=== PATIENT | male | born 1950 | race Caucasian/White ===

== ENCOUNTER → 2019-08-24 12:18 | Outpatient (CLI) | payer MEDICARE, SELFPAY ==
[2019-08-26 10:19] LABS: PSA, Free 1.62 ng/mL; Prostate Specific Ag 5.7 ng/mL (0.0-4.0)
== END ==
PROVIDERS: Visit Provider Urology
DX: R97.20 Elevated prostate specific antigen [PSA] (principal)
CPT/HCPCS: 36415; 84153; 84154

== ENCOUNTER → 2019-09-28 10:52 | Outpatient (CLI) | payer MEDICARE, SELFPAY ==
--- NOTE | 2019-09-28 | CA_ITS ---
APPROVED REPORT Exam: Pharmacologic Technologist: Mimi Werner, Ht: 5 ft 11 in Wt: 220 lbs BSA: 2.20 m2 Rhythm: NSR,NSSTTW ABNORMALITIES Medical History Medical History: HTN, Hyperlipidemia Medications: Amlodipine,,,,, Lisinopril,,,,, Asa,,,,, Atorvastatin,,,,, Carvedilol,,,,, CloPIdogrel,,,,, Cardiac Risk Factors: HTN, Hyperlipidemia, FHX of CAD Stress Test Details Test: LEXISCAN HR Resting HR: 58 bpm Max Heart Rate (APMHR): 153 bpm Max HR Achieved: 87 bpm Target HR (85% APMHR): 130 bpm % of APMHR: 56 Recovery HR: 66 bpm BP Resting BP: 147.0/65.0 mmHg Max BP: 147.0/65.0 mmHg Recovery BP: 110.0/62.0 mmHg ECG Resting ECG: NSR,NSSTTW ABNORMALITIES Clinical Reason for Termination: Completed Protocol Exercise duration: 04:01 min Highest Stage Achieved: Exercise capacity: 1.0 METs Stress ECG Conclusion LEXISCAN INFUSION COMPLETED. PATIENT HAD NO SYMPTOMS OR ARRHYTHMIAS/ECTOPY. <1.5MM ST SEGMENT CHANGES. NON-DIAGNOSTIC Test Summary REST . . . . . . . Sitting REST . . . . . . . Sitting REST 02:45 . . 58 . 147/ 65 . . Stage 1 . . . . . . . Cardiolite injected Stage 1 01:00 . . 81 . . . . Stage 2 01:00 . . 72 . 112/ 50 . . Stage 3 01:00 . . 53 . . . . Stage 4 01:00 . . 59 . 109/ 47 . . Stage 4 01:01 . . 59 . 109/ 47 . Stop exercise at 04:01 RECOVERY 01:00 . . 66 . . . . RECOVERY 02:00 . . 64 . 110/ 62 . . RECOVERY 03:00 . . 64 . 125/ 63 . . RECOVERY 04:00 . . 65 . 135/ 66 . . RECOVERY 04:15 . . 65 . 135/ 66 . . Electronically signed by : Jose F Blanton, 09/29/2019 18:35:26
--- NOTE | 2019-09-28 10:53 | CA_ITS ---
APPROVED REPORT EXAM: Comprehensive 2D, Doppler, and color-flow Echocardiogram Plodder Operator: Florencia García RVT Ht: 6 ft 1 in Wt: 226lbs BSA: 2.27 BP: 168/74 mmHg Indications: Shortness of Breath, Dyspnea, CAD, Hyperlipidemia, Hypertension,DAVID, stents, hx [place],Pre-op 2D Dimensions LVOT 2.27 cm (M/F) 1.5-2.5 M-Mode Dimensions RVDd 3.32 cm (0.9-2.6) LVDd 6.50 cm (3.5-5.7) LVDs 4.44 cm (3.5-5.7) IVSd 1.79 cm (0.6-1.1) PWd 0.58 cm (0.6-1.1) EF (Teich) 58.50% FS 31.70% EDV (Teich) 216.00 mL ESV (Teich) 89.60 mL LV Diastology E/A Ratio 1.04 Mitral Valve MV A Velocity 63.00 (40-130 cm/s) Left Ventricle Left atrium is mildly enlarged, left ventricle is normal size, mild concentric left ventricular hypertrophy, visually estimated ejection fraction 50%, there is moderate hypokinesis involving the inferior basal wall, grade 2 diastolic dysfunction seen with tissue Doppler evidence of raise left atrial pressure. Right Ventricle Right atrium and right ventricular normal size and contractility. Aortic Valve Aortic valve is thickened and calcified, leaflet continue to display mobility. Mitral Valve Mitral valve is grossly normal, there is mild mitral regurgitation. Tricuspid Valve Tricuspid valve is grossly normal, there is mild tricuspid regurgitation. Pulmonic Valve Pulmonic valve is poorly visualized. Great Vessels Aortic root is normal size. Pericardium No significant pericardial effusion noted. Conclusion 1. Mildly enlarged left atrium, normal left ventricular size, mild concentric left ventricular hypertrophy, visually estimated ejection fraction 50% with segmental wall motion abnormality described above, grade 2 diastolic dysfunction seen with tissue Doppler evidence of raise left atrial pressure. 2. Mild mitral and tricuspid regurgitation. 3. No significant pericardial effusion noted. Electronically signed by : Jose F Blanton, 09/29/2019 19:31:37
--- NOTE | 2019-09-28 11:46 | NM_ITS ---
APPROVED REPORT Exam: Nuclear Stress Test Indication: CAD, 8 STINTS, H/O MA X 3, HTN, HYPERLIPIDEMIA, FM HX., SOB Patient Location: Outpatient Stress Tech: Usha Pridenkson [place] Tech:Maribeth Rockwell ALANDeandre RT(R)(N) Ht: 5 ft 11 in Wt: 220 lbs HR: 54 bpm BP: 141/65 mmHg BSA: 2.20 m2 BMI: 30.6 History: CAD, 8 STINTS, H/O MA X 3, HTN, HYPERLIPIDEMIA, FM HX., SOB Procedure: Patient received a 0.4 mg of intravenous Lexiscan, resting heart rate 54 bpm, resting blood pressure 141/65 mmHg, with Lexiscan maximum heart rate achived was 60 bpm which is Less than 85 % of the maximum predicted heart rate and blood pressure was 109/52 mmHg. With Lexiscan, patient denied any complaint of chest pain. Electrocardiogram Resting electrocardiogram showed sinus rhythm, with Lexiscan there is less than 1.[address] segment depression noted from the baseline EKG. The EKG portion of the Lexiscan Myoview is nondiagnostic. Cardiac Stress and Resting SPECT Images: Cardiac Stress and Resting SPECT images were obtained using technetium 99m Myoview 32.2 mCi stress and 10.98 mCi at rest. Gated SPECT with analysis of segmental wall motion and calculation of the ejection fraction also done. Cardiac stress and resting SPECT images show partial reversible defect involving the inferior, inferolateral and posterolateral wall consistent with area of mixed ischemia and scar, computer derived ejection fraction is 59% with moderate posterolateral and inferior lateral wall hypokinesis. Right ventricle is normal size and contractility. Conclusion: 1. The EKG portion of the Lexiscan is nondiagnostic. 2. Scintigraphic evidence of mixed ischemia and scar involving the inferior, inferolateral and posterolateral wall, computer derived ejection fraction 59% with segmental wall motion abnormality described above, right ventricle is normal size and contractility. 3. Abnormal Lexiscan Myoview study. Electronically signed by : Jose F Blanton, 09/29/2019 18:38:37
--- NOTE | 2019-09-28 14:46 | HMH.ITSHM ---
Current Home Medications as stated by this patient Alok De Jesus or patient representative. []LISINOPRIL AMLODIPINE ASPIRIN CLOPIDOGREL ATORVASTATIN CARVEDILOL
== END ==
PROVIDERS: PCP Nurse Practitioner Family; Visit Provider Internal Medicine Cardiovascular Disease
DX: E78.5 Hyperlipidemia, unspecified (principal); I10 Essential (primary) hypertension; I25.10 Atherosclerotic heart disease of native coronary artery without angina pectoris; I25.2 Old myocardial infarction; R06.00 Dyspnea, unspecified; Z01.810 Encounter for preprocedural cardiovascular examination; Z95.5 Presence of coronary angioplasty implant and graft
CPT/HCPCS: 78452; 93017; 93306; A9502; J2785

== ENCOUNTER → 2019-10-05 09:55 | Outpatient (CLI) | payer MEDICARE, SELFPAY ==
[2019-10-05 10:41] LABS: Anion Gap 12.4 mEq/L (5-15); Blood Urea Nitrogen 12 mg/dL (7-18); Calcium 9.2 mg/dL (8.5-10.1); Carbon Dioxide 29 mmol/L (21.0-32.0); Chloride 107 mmol/L (98-107); Creatinine,Serum 0.99 mg/dL (0.70-1.30); Estimated Glomerular Filt Rate 75 ml/min (>60); GFR (African American) 91 ML/MIN (>60); Glucose 100 mg/dL (74-106); Potassium 4.4 mmoL/L (3.5-5.1); Sodium 144 mmol/L (136-145)
== END ==
PROVIDERS: Visit Provider Internal Medicine Cardiovascular Disease
DX: E78.5 Hyperlipidemia, unspecified (principal); I10 Essential (primary) hypertension; I25.10 Atherosclerotic heart disease of native coronary artery without angina pectoris; I25.2 Old myocardial infarction; R06.00 Dyspnea, unspecified; Z01.810 Encounter for preprocedural cardiovascular examination; Z95.5 Presence of coronary angioplasty implant and graft
CPT/HCPCS: 36415; 80048; 83880

== ENCOUNTER → 2020-02-06 11:24 | Outpatient (CLI) | payer MEDICARE, SELFPAY ==
[2020-02-06 12:08] LABS: Alanine Aminotransferase 23 U/L (12-78); Albumin Level 4.3 g/dl (3.5-5.0); Alkaline Phosphatase 96 U/L (38-126); Aspartate Amino Transferase 29 U/L (17-59); Bilirubin,Indirect 0.9 mg/dL (0.0-0.9); Bilirubin,Total 0.9 mg/dl (0.2-1.3); Bilirubin,Unconjugated 0.8 mg/dL (0.0-1.1); Chol/HDL Ratio 3.6 (1-3.5); Cholesterol 115 mg/dl (140-200); HDL Cholesterol 32 mg/dl (40-60); Total Protein,Serum 7.3 g/dl (6.3-8.2); Triglycerides 106 mg/dl (30-150); VLDL Cholesterol 21 mg/dL (0-40)
[2020-02-06 12:19] LABS: Direct LDL Cholesterol 77.44 mg/dL (100-129)
== END ==
PROVIDERS: Visit Provider Urology
DX: E78.5 Hyperlipidemia, unspecified (principal); I10 Essential (primary) hypertension; I25.10 Atherosclerotic heart disease of native coronary artery without angina pectoris; I25.2 Old myocardial infarction; R06.00 Dyspnea, unspecified; Z95.5 Presence of coronary angioplasty implant and graft
CPT/HCPCS: 36415; 80061; 80076

== ENCOUNTER → 2020-02-23 13:59 | Outpatient (CLI) | payer MEDICARE, SELFPAY ==
[2020-02-25 08:42] LABS: PSA, Free 1.59 ng/mL; Prostate Specific Ag 5.8 ng/mL (0.0-4.0)
== END ==
PROVIDERS: Visit Provider Urology
DX: R97.20 Elevated prostate specific antigen [PSA] (principal)
CPT/HCPCS: 36415; 84153; 84154

== ENCOUNTER → 2020-03-29 08:06 | Outpatient (CLI) | payer MEDICARE, SELFPAY ==
[2020-03-30 13:42] LABS: Prostate Specific Ag 11.8 ng/mL (0.0-4.0)
== END ==
PROVIDERS: Visit Provider Urology
DX: R97.20 Elevated prostate specific antigen [PSA] (principal)
CPT/HCPCS: 36415; 84153; 84154

== ENCOUNTER 2020-04-01 12:01 | Observation (INO) | payer MEDICARE, SELFPAY ==
[2020-03-28 09:43] VITALS: BMI 31.4
[2020-04-01] VITALS (23 sets, daily range): BP systolic 92–143; BP diastolic 47–73; PULSE 50–65; RESP 12–20; TEMP 36.2–36.7; O2SAT 88–95; BMI 31.4
[2020-04-01 07:54] LABS: Basophils % 0.6 % (0.1-2.0); Eosinophils # 0.2 K/mm3 (0.0-0.4); Eosinophils % 3.3 % (0.1-12.0); Hematocrit 45.3 % (42.0-52.0); Hemoglobin 15.7 g/dL (14.1-18.0); Lymphocytes % 19.6 % (10-50); Mean Corpuscular HGB Conc 34.7 g/dL (31.8-35.4); Mean Corpuscular Hemoglobin 29.6 pg (27.0-31.2); Mean Corpuscular Volume 85.2 fl (80-94); Mean Platelet Volume 7.5 fl (7.4-10.4); Monocytes # 0.4 K/mm3 (0.1-1.0); Neutrophils # 3.6 K/mm3 (1.8-7.8); Neutrophils % 69.5 % (37.0-80.0); Platelet Count 253 K/mm3 (142-424); Red Blood Count 5.32 M/mm3 (4.60-6.20); Red Cell Distribution Width 14.1 % (11.5-17.5); White Blood Count 5.1 K/mm3 (4.8-10.8)
[2020-04-01 08:00] LABS: Blood Urea Nitrogen 11 mg/dl (9-20); Calcium 9.1 mg/dl (8.4-10.2); Creatinine Clearance Estimated 103 mL/min (50-200); Estimated Glomerular Filt Rate 112 ml/min (>60); GFR (African American) 136 ML/MIN (>60); Glucose 150 mg/dl (74-100)
[2020-04-01 08:34] LABS: Anion Gap 13.9 mEq/L (5-15); Sodium 140 mmol/L (136-145)
[2020-04-01 08:35] LABS: Carbon Dioxide 26 mmol/L (22.0-30.0); Chloride 104 mmol/L (98-107); Potassium 3.9 mmoL/L (3.5-5.1)
--- NOTE | 2020-04-01 08:42 | HMH.ANESCL ---
[facility] Anesthesia Checklist - Structural Data Admitted From: Home Planned Operative Procedure/s: turp Consent for Planned Operative Procedure(s) Verified: Yes - Additional verifications Anesthesia Reactions: No Hx Blood Transfusions: No Blood Transfusion Reaction: No - Airway Assessment C-Spine Mobility Assessed: Yes TMJ Mobility Assessed: Yes Dentition: Poor Dentition - Neurological Assessment Level of Consciousness: Awake, Alert, Appropriate - Anesthesia Plan Anesthesia Risk discussed: Yes Anesthesia Plan: Verified ASA Class: III Anesthesia Type: General [facility] History I have reviewed the patient's past medical history: Yes Medical History: Reports:: Carotid Stenosis, Coronary Artery Disease, Cerebrovascular Accident, Hyperlipidemia, Hypertension, Myocardial Infarction Denies:: Cancer, Diabetes Mellitus Type 1, Diabetes Mellitus Type 2, Internal Pacemaker, MRSA, Seizures *Have you ever received a pneumonia vaccine?: No *Have you received a flu vaccine this season?: No Other Medical History: Denies: Blood Transfusion Reaction Anesthesia experience/problems:: none Other Surgeries: Yes: No Previous Surgery, Cardiac Catheterization, Cardiac Surgery, Colonoscopy, Coronary Stent, Other. No: Pacemaker Amputation: No Fractures: Yes (wrist) - *Social History Last grade of school completed: 9th or 10th Smoking Status: Former smoker #Yrs smoked (if former smoker): 20 Alcohol Intake: never Alcohol Intake Frequency:: other Substance Use Type: denies use *Occupational Status:: retired Housing: apartment Household Members: none *Travel in the last 8 weeks: None Family Hx:: Coronary Artery Disease
[2020-04-01 08:48] LABS: Coronavirus 19 IgG Antibody Negative (Negative); Coronavirus 19 IgM Antibody Negative (Negative)
--- NOTE | 2020-04-01 11:02 | HMH.ANESI ---
[facility] Anesthesia Record Part I Intake, IV Amount: 1,500 Estimated blood loss (mL): 0 Urine output (mL): 0 Blood Pressure: 92/47 SaO2: 90 Pulse Rate: 60 Respiratory Rate: 12 Temperature: 97.4 F Patient is:: Drowsy, Stable Stable to PACU at:: 10:55
--- NOTE | 2020-04-01 12:03 | HMH.PHAVTE ---
[facility] Pharmacy VTE Monitoring - Patient Demographics Admission date: 04/01/20 Report Date: 04/01/20 Time: 12:03 Allergies/Adverse Reactions: Patient Allergies No Known Allergies Allergy (Verified 04/01/20 07:58) Height: 1.8 m Weight: 102.058 kg - VTE Risk Labs: VTE Related Lab Results Hgb 15.7 g/dL (14.1-18.0) 04/01/20 07:45 Hct 45.3 % (42.0-52.0) 04/01/20 07:45 Plt Count 253 K/mm3 (142-424) 04/01/20 07:45 BUN 11 mg/dl (9-20) 04/01/20 07:45 Creatinine 0.70 mg/dl (0.66-1.25) 04/01/20 07:45 Estimated Creat Clear 103 mL/min (50-200) 04/01/20 07:45 - Prophylaxis VTE Prophylaxis Ordered?: Yes Types of VTE Prophylaxis: IPCS Thigh High Location of Applied Device: Bilateral Lower Extremeties - VTE Diagnosis Confirmed Treatment or plan recommended: Continue Current Treatment
--- NOTE | 2020-04-01 14:01 | P.OP_ITS ---
Date of procedure: 04/01/20 Pre-op Diagnosis:: BPH with obstruction Post-op Diagnosis:: BPH with obstruction Procedure performed:: TURP Surgeon:: Loy Doran MD [employer] DRIVER:: Felice Barajas Anesthesia: GETA Estimated blood loss (mL): 10 Clinical Note:: 69-year-old white male with prostate enlargement and lower urinary tract symptoms presents for TURP today. Operative findings:: Trilobar hyperplasia present. Bladder showed some mild trabeculation. Ureteral orifices were a bit obscured by the median lobe but were visualized. Operative note:: Patient taken to the operating room after informed consent was obtained. He was placed on the operating table in the supine position and general anesthesia administered. Preoperative antibiotics and sequential compression devices placed after analgesia. He was placed into the dorsal lithotomy position and prepped and draped in the standard surgical fashion. 26 Guatemalan resectoscope sheath with obturator passed into the urethra and into the bladder without difficulty. The obturator removed and our resectoscope with 30 degree lens was passed through the sheath. The bladder examined in a systematic fashion. No mucosal abnormalities were noted. There was some mild to moderate trabeculation throughout the base of the bladder. The ureteral orifices were obscured by the median lobe but we were able to visualize them by pulling back on the median lobe. Resection began at the bladder neck in a circumferential fashion. We then resected the floor of the prostatic urethra back to the verumontanum. The left lobe of the prostate was then resected in a counterclockwise fashion back to the verumontanum. The right lobe of the prostate was resected in a clockwise fashion back to the verumontanum. Apical tissue was resected as stage III. All the prostatic chips were evacuated and sent off for specimen. Hemostasis was achieved and a 24 Guatemalan three-way catheter passed with the aid of a catheter guide. 30 cc placed into the balloon and continuous bladder irrigation instituted. The urine was pink in color. Patient tolerated procedure well and transported to the recovery in stable condition. Condition: stable Disposition: PACU Specimens:: Prostatic chips Complications:: None
--- NOTE | 2020-04-01 14:50 | SUR.PHASEI ---
Patient into PACU sedate, with LMA inserted. Multiple attempts made to rouse patient, unsuccessful. LMA removed at 1118 by Mila Sidhu RN.
--- NOTE | 2020-04-01 14:53 | SUR.PHASEI ---
Informed by STREET LIGHT WIRER, that patient has COPD, sleeps with Bi-PAP nightly. Patient's O2 saturation is not expected to get any higher than 93% on O2. Patient has been between 88-90% on 3L, sitting up at 90 degrees.
--- NOTE | 2020-04-01 15:05 | HMH.PHAINT ---
MEDICATION RECONCILIATION COMPLETED ON PATIENT USING EXTERNAL FILL HISTORY FROM PHARMACY AND PATIENT'S OWN RX BOTTLES. -LISE GAMBLED
--- NOTE | 2020-04-01 15:56 | P.PN_ITS ---
[facility] Anesthesia Record Part II Discharge Time: 11:55 Destination: Medical Surgical Department PACU nurse assessment reviewed?: Yes Patient Condition:: Good Anesthesia Complications:: None Swallowing reflex intact?: Yes Cyanosis?: No Blood Pressure: 120/68 Pulse Rate: 54 Temperature: 97.2 F Mental Status: Alert & Oriented Pain level:: 0 Nausea and/or vomitting:: None Intake, IV Amount: 0
--- NOTE | 2020-04-01 17:24 | PC.NURSE ---
PT IS RESTING IN BED. NO COMPLAINTS OF DISCOMFORT. VSS. ALERT AND ORIENTED X4. [address] IND[address] CATHETER WITH CBI. FLOW ADJUSTED TO KEEP DRAINAGE CLEAR/LIGHT PINK. LUNG SOUNDS HAVE SCATTERED RHONCHI IN THE RT BASE. BOWEL SOUNDS NORMAL. PT STATES HIS LAST BOWEL MOVEMENT WAS YESTERDAY. EATING AND DRINKING WELL. WILL CONTINUE TO MONITOR.
--- NOTE | 2020-04-01 19:10 | INFXCTL.NOTE ---
report given to rossy
[2020-04-02] VITALS: BP 122/56; PULSE 62; RESP 17; TEMP 36.5; O2SAT 94
[2020-04-02 03:59] VITALS: BP 133/58; PULSE 48; RESP 17; TEMP 36.7; O2SAT 94
--- NOTE | 2020-04-02 04:55 | PC.NURSE ---
A&Ox4 post op turp with CBI, no clots have been noted diaz line irrigate to maintain light pink to clear output. pt denied any pain. At this time pt has a 3 liter positive output. pt has rested quietly this shift.
[2020-04-02 05:12] VITALS: BMI 31.4
[2020-04-02 06:30] LABS: Eosinophils % 0.1 % (0.1-12.0); Hematocrit 41.9 % (42.0-52.0); Lymphocytes # 0.9 K/mm3 (0.7-4.5); Mean Corpuscular Volume 87.7 fl (80-94); Monocytes # 0.5 K/mm3 (0.1-1.0)
[2020-04-02 06:32] LABS: Chloride 105 mmol/L (98-107); Potassium 3.8 mmoL/L (3.5-5.1); Sodium 139 mmol/L (136-145)
[2020-04-02 06:35] LABS: Anion Gap 11.8 mEq/L (5-15); Blood Urea Nitrogen 12 mg/dl (9-20); Calcium 8.5 mg/dl (8.4-10.2); Carbon Dioxide 26 mmol/L (22.0-30.0); Creatinine Clearance Estimated 103 mL/min (50-200); Estimated Glomerular Filt Rate 112 ml/min (>60); GFR (African American) 136 ML/MIN (>60); Glucose 178 mg/dl (74-100)
[2020-04-02 06:37] LABS: Lymphocytes % 7.7 % (10-50); Mean Corpuscular HGB Conc 33.9 g/dL (31.8-35.4); Mean Corpuscular Hemoglobin 29.7 pg (27.0-31.2); Monocytes % 3.9 % (1.7-9.3); Neutrophils # 10.2 K/mm3 (1.8-7.8); Neutrophils % 88.3 % (37.0-80.0); Platelet Count 243 K/mm3 (142-424); Red Blood Count 4.77 M/mm3 (4.60-6.20); White Blood Count 11.6 K/mm3 (4.8-10.8)
[2020-04-02 06:40] LABS: Hemoglobin 14.2 g/dL (14.1-18.0)
[2020-04-02 06:41] LABS: MANUAL DIFFERENTIAL MANUAL DIFFERENTIAL (MANUAL DIFF)
[2020-04-02 07:13] LABS: Lymphocytes % 8 % (10-50); Monocytes % 2 % (2-9); Neutrophils % 90 % (42-76); Total Cells Counted 100
[2020-04-02 07:14] LABS: Platelet Estimate Normal; RBC Morphology Normal
[2020-04-02 08:00] VITALS: BP 137/55; PULSE 71; RESP 18; TEMP 36.4; O2SAT 95
--- NOTE | 2020-04-02 10:43 | HMH.ACPN ---
Internal Medicine - PN: Subj *Date: 04/02/20 *Time: 10:43 Interval history: Pt denies any problems overnight. VSS AF. Urine sl pink on slow CBI. Exam Vital signs and Labs for Last 24 Hours: Temp Pulse Resp BP Pulse Ox 97.6 F 71 18 137/55 L 95 04/02/20 08:00 04/02/20 08:00 04/02/20 08:00 04/02/20 08:00 04/02/20 08:00 Laboratory Results - last 24 hr 04/02/20 05:40: WBC 11.6 H D, RBC 4.77, Hgb 14.2, Hct 41.9 L, MCV 87.7, MCH 29.7, MCHC 33.9, RDW 14.0, Plt Count 243, MPV 8.0, Neut % (Auto) 88.3 H, Lymph % (Auto) 7.7 L, [place] % (Auto) 3.9, Eos % (Auto) 0.1, Baso % (Auto) 0.0 L, Neut # (Auto) 10.2 H, Lymph # (Auto) 0.9, [place] # (Auto) 0.5, Eos # (Auto) 0.0, Baso # (Auto) 0.0, Total Counted 100, Neutrophils % (Manual) 90 H, Lymphocytes % (Manual) 8 L, Monocytes % (Manual) 2, Platelet Estimate Normal, RBC Morphology Normal 04/02/20 05:40: Sodium 139, Potassium 3.8, Chloride 105, Carbon Dioxide 26, Anion Gap 11.8, BUN 12, Creatinine 0.70, Estimated Creat Clear 103, Estimated GFR 112, Est GFR ( Amer) 136, Glucose 178 H, Calcium 8.5 I & O for Last 24 hours: Intake & Output 03/30/20 03/31/20 04/01/20 04/02/20 23:59 23:59 23:59 23:59 Intake Total 2305 / 2305 1293 / 1293 Output Total 2400 / 2400 4900 / 4900 Balance -95 / -95 -3607 / -3607 Weight 102.058 kg 102.055 kg Narrative: WN WM in NAD PERRLA abd soft alert and oriented Assessment and Plan (1) BPH NOS w ur obs/LUTS Current visit: Yes Status: Acute Category: Medical Code(s): N40.1 - Benign prostatic hyperplasia with lower urinary tract symptoms POD 1 s/p TURP. Urine sl pink this am. Will d/c home with diaz for 2 days. Pt instructed to push fluids and rest. RTO 2 days for voiding trial.
--- NOTE | 2020-04-02 10:49 | PC.NURSE ---
PT IS BEING DC'D HOME WITH HUDSON ATTACHED TO LEG BAG. CBI PORT PLUGGED. PT WAS ALSO SENT WITH ADDITIONAL CATHETER BAG THAT CAN HOLD 2000 ML'S OF UOP. URINAL SO PT CAN KEEP UP WITH UOP. PT WAS EDUCATED ON CATHETER CARE AND HOW TO EMPTY CATHETER BAGS. PT WAS INSTRUCTED TO DRINK PLENTY OF FLUIDS. PT WILL FOLLOW UP WITH ON WEDNESDAY.
--- NOTE | 2020-04-08 13:12 | HMH.DCSUM ---
General - General Admission date:: 04/01/20 Discharge date: 04/02/20 HPI HPI: Patient underwent a TURP on 04/01/2020. Procedure went well and he was discharged to the recovery room and to the floor postoperatively with a three-way catheter and continuous bladder irrigation. On postop day 1 his urine was clear on minimal CBI. He had no problems overnight lab values were within normal limits on postop day 1. Was discharged home with his Cardoso catheter to dependent drainage. We discussed routine instructions which included hydrating well and avoiding any strenuous activity. His CBI port was plugged and the leg bag was placed. I will plan on seeing him back in 3 days for a voiding trial. Hospital Course Hospital Course: See the HPI. Objective Vital signs: Temp Pulse Resp BP Pulse Ox 97.6 F 71 18 137/55 L 95 04/02/20 08:00 04/02/20 08:00 04/02/20 08:00 04/02/20 08:00 04/02/20 08:00 Narrative: Well-nourished white male in no apparent distress Pupils equal round react light Is normocephalic Neck is symmetric Abdomen soft nontender nondistended Alert and oriented x3 DS: Diagnosis - Discharge Diagnosis (1) BPH NOS w ur obs/LUTS Status: Acute (2) BPH loc w urin obs/LUTS Status: Acute Discharge Plan - Patient Discharge Instructions ACTIVITY: No heavy lifting DIET: continue same diet Patient Instructions: Transurethral Resection of the Prostate, DI for Transurethral Resection of the Prostate, Catheter-Associated Urinary Tract Infection - Follow up Plan Follow up with: Loy Doran MD [Staff Physician] - 04/04/20 3:00 pm Disposition: Home, Self-Nursing Home Medications: Home Medications Medication Instructions Recorded Confirmed Type atorvastatin 40 mg tablet 40 mg PO HS 03/30/19 04/04/20 History clopidogrel 75 mg tablet 75 mg PO DAILY 03/30/19 04/04/20 History lisinopril 20 mg tablet 20 mg PO DAILY 03/30/19 04/04/20 History Tamsulosin HCl 0.4 mg PO HS 09/18/19 04/04/20 History aspirin 81 mg tablet,delayed 81 mg PO DAILY 09/21/19 04/04/20 History release carvedilol 12.5 mg tablet 12.5 mg PO DAILY tab 09/21/19 04/04/20 History Amlodipine Besylate [Amlodipine 10 mg PO DAILY 03/28/20 04/04/20 History 10mg Tab] hydroCHLOROthiazide 12.5 mg PO DAILY 03/28/20 04/04/20 History [Hydrochlorothiazide 12.5mg Tab] Finasteride [Proscar 5mg Tablet] 5 mg PO DAILY 04/01/20 04/04/20 History Prescriptions/Medication Reconciliation: Continued clopidogrel 75 mg tablet 75 mg PO DAILY atorvastatin 40 mg tablet 40 mg PO HS aspirin 81 mg tablet,delayed release 81 mg PO DAILY lisinopril 20 mg tablet 20 mg PO DAILY carvedilol 12.5 mg tablet 12.5 mg PO DAILY tab Tamsulosin HCl 0.4 mg PO HS Amlodipine Besylate [Amlodipine 10mg Tab] 10 mg PO DAILY Finasteride [Proscar 5mg Tablet] 5 mg PO DAILY hydroCHLOROthiazide [Hydrochlorothiazide 12.5mg Tab] 12.5 mg PO DAILY - Problem Reconciliation Problems Reviewed?: Yes
== END 2020-04-02 11:43 | disposition home or self-care (01) ==
PROVIDERS: Admitting Provider Urology; PCP Nurse Practitioner Family; Visit Provider Urology
PROC: 0VT08ZZ Resection of Prostate, Via Natural or Artificial Opening Endoscopic (ICD-10-PCS; CPT 52601; principal; 2020-04-01 09:00)
DX: N40.1 Benign prostatic hyperplasia with lower urinary tract symptoms (principal); R97.20 Elevated prostate specific antigen [PSA]; I25.10 Atherosclerotic heart disease of native coronary artery without angina pectoris; I10 Essential (primary) hypertension; Z79.02 Long term (current) use of antithrombotics/antiplatelets; Z79.82 Long term (current) use of aspirin; Z79.899 Other long term (current) drug therapy
CPT/HCPCS: 52601; 36415; 80048; 85007; 85025; 86328; 88305; 96374; G0378; J2405

== ENCOUNTER 2020-07-28 19:55 | Observation (INO) | payer MEDICARE, SELFPAY ==
[2020-07-28] VITALS (8 sets, daily range): BP systolic 129–163; BP diastolic 60–81; PULSE 49–61; RESP 17–18; TEMP 36.6; O2SAT 94–98; BMI 34.2
--- NOTE | 2020-07-28 20:06 | XR_ITS ---
PROCEDURE: XR CHEST 2V CLINICAL HISTORY: chest pain COMPARISON: No exams were available for comparison FINDINGS: The cardiomediastinal silhouette and pulmonary vascularity are within normal limits. Patchy density is present in the right lower lobe and middle lobe consistent with atelectasis or infiltrate. No acute bony abnormalities. IMPRESSION: Atelectasis and or infiltrate in the right middle and right lower lobe Dictated by: Richie Murrell MD 07/29/2020 08:45 Richie Murrell MD in OV 07/29/2020 08:45
--- NOTE | 2020-07-28 20:06 | ECG_ITS ---
APPROVED REPORT Exam: Resting ECG HR:47 bpm ECG Measurements Heart Rate 47 AXES IL 196 P 76 QRSd 106 QRS 17 QT 486 T 15 QTc 430 Conclusion Marked sinus bradycardia Nonspecific ST abnormality Abnormal ECG Electronically signed by : Tuan Fry, 07/29/2020 21:07:53
[2020-07-28 20:26] LABS: Basophils % 0.6 % (0.1-2.0); Eosinophils # 0.1 K/mm3 (0.0-0.4); Hematocrit 49.7 % (42.0-52.0); Hemoglobin 16.7 g/dL (14.1-18.0); Lymphocytes # 1.6 K/mm3 (0.7-4.5); Lymphocytes % 28.6 % (10-50); Mean Corpuscular HGB Conc 33.5 g/dL (31.8-35.4); Mean Corpuscular Hemoglobin 28.7 pg (27.0-31.2); Mean Corpuscular Volume 85.5 fl (80-94); Mean Platelet Volume 7.5 fl (7.4-10.4); Monocytes # 0.4 K/mm3 (0.1-1.0); Monocytes % 7.3 % (1.7-9.3); Neutrophils # 3.5 K/mm3 (1.8-7.8); Neutrophils % 61.5 % (37.0-80.0); Platelet Count 311 K/mm3 (142-424); Red Blood Count 5.82 M/mm3 (4.60-6.20); Red Cell Distribution Width 14.8 % (11.5-17.5); White Blood Count 5.7 K/mm3 (4.8-10.8)
[2020-07-28 20:27] LABS: Anion Gap 16.5 mEq/L (5-15); Blood Urea Nitrogen 9 mg/dl (9-20); Calcium 10.2 mg/dl (8.4-10.2); Carbon Dioxide 26 mmol/L (22.0-30.0); Chloride 105 mmol/L (98-107); Creatinine Clearance Estimated 113 mL/min (50-200); Estimated Glomerular Filt Rate 84 ml/min (>60); GFR (African American) 102 ML/MIN (>60); Glucose 94 mg/dl (74-100); Potassium 3.5 mmoL/L (3.5-5.1); Sodium 144 mmol/L (136-145)
[2020-07-28 20:40] LABS: Troponin I < 0.01 ng/ml (0.00-0.034)
--- NOTE | 2020-07-28 20:59 | HMH.EDGENADL ---
ED Disposition Clinical Impression: Chest pain Qualifiers: Ischemic chest pain type: stable angina pectoris Disposition: Admitted As Inpatient Condition on Discharge: Good - Critical Care Critical Care Time: No Attestation: On 07/28/20, the high probability of a clinically significant, sudden or life threatening deterioration of the following system(s) required my full and direct attention, intervention and personal management. The time I documented below is in addition to time spent performing reported procedures but includes the following listed in this critical care notation. Medical Decision Making - Medical Records Medical records reviewed: Yes: I reviewed the patient's medical records. - Aurelio Inquiry Pt receiving controlled substance: No Vital Signs: 07/28/20 19:56 07/28/20 20:30 07/28/20 21:00 Temperature 97.9 F Temperature Source Oral Pulse Rate [Left] 52 L 49 L 49 L Respiratory Rate 18 17 17 Blood Pressure [Right Arm] 148/69 H 139/68 144/72 H Blood Pressure Mean [Right Arm] 95 91 96 Blood Pressure Source [Right Arm] Automatic Cuff Automatic Cuff Automatic Cuff Blood Pressure Position [Right Arm] Supine Supine Supine 02 Sat by Pulse Oximetry 98 98 98 Oxygen Delivery Method Nasal Cannula Room Air Room Air Oxygen Flow Rate (LPM) 2 07/28/20 21:30 07/28/20 22:00 07/28/20 22:30 Temperature Temperature Source Pulse Rate [Left] 50 L 52 L 49 L Respiratory Rate 17 17 17 Blood Pressure [Right Arm] 135/71 142/81 H 136/60 Blood Pressure Mean [Right Arm] 92 101 85 Blood Pressure Source [Right Arm] Automatic Cuff Automatic Cuff Automatic Cuff Blood Pressure Position [Right Arm] Supine Supine Supine 02 Sat by Pulse Oximetry 98 95 94 L Oxygen Delivery Method Room Air Room Air Room Air Oxygen Flow Rate (LPM) 07/28/20 23:00 07/28/20 23:30 07/29/20 00:00 Temperature Temperature Source Pulse Rate [Left] 61 53 L 53 L Respiratory Rate 17 17 17 Blood Pressure [Right Arm] 129/70 163/73 H 156/76 H Blood Pressure Mean [Right Arm] 89 103 102 Blood Pressure Source [Right Arm] Automatic Cuff Automatic Cuff Automatic Cuff Blood Pressure Position [Right Arm] Supine Supine Supine 02 Sat by Pulse Oximetry 98 95 94 L Oxygen Delivery Method Room Air Room Air Room Air Oxygen Flow Rate (LPM) 07/29/20 00:30 07/29/20 01:00 Temperature Temperature Source Pulse Rate [Left] 61 46 L Respiratory Rate 17 17 Blood Pressure [Right Arm] 164/76 H 131/55 L Blood Pressure Mean [Right Arm] 105 80 Blood Pressure Source [Right Arm] Automatic Cuff Automatic Cuff Blood Pressure Position [Right Arm] Supine Supine 02 Sat by Pulse Oximetry 95 94 L Oxygen Delivery Method Room Air Room Air Oxygen Flow Rate (LPM) - Lab Data Lab Results 07/28/20 19:45: WBC 5.7, RBC 5.82, Hgb 16.7, Hct 49.7, MCV 85.5, MCH 28.7, MCHC 33.5, RDW 14.8, Plt Count 311, MPV 7.5, Neut % (Auto) 61.5, Lymph % (Auto) 28.6, [place] % (Auto) 7.3, Eos % (Auto) 2.0, Baso % (Auto) 0.6, Neut # (Auto) 3.5, Lymph # (Auto) 1.6, [place] # (Auto) 0.4, Eos # (Auto) 0.1, Baso # (Auto) 0.0 07/28/20 19:45: Sodium 144, Potassium 3.5, Chloride 105, Carbon Dioxide 26, Anion Gap 16.5 H, BUN 9, Creatinine 0.90, Estimated Creat Clear 113, Estimated GFR 84, Est GFR ( Amer) 102, Glucose 94, Calcium 10.2, Troponin I < 0.01 07/28/20 19:45: SARS-CoV-2 IgG Ab (Rapid) Positive A, SARS-CoV-2 IgM Ab (Rapid) Negative 07/28/20 23:00: Troponin I < 0.01 Result diagrams: 07/28/20 19:45 07/28/20 19:45 Orders (Tests/Meds): ED MEDICATIONS Generic Name Dose Route Start Last Admin Trade Name Freq PRN Reason Stop Dose Admin Acetaminophen 650 mg 07/29/20 00:37 Acetaminophen 325mg Tab PO 08/28/20 00:36 Q4HP PRN As Needed for Fever or Pain Nitroglycerin 0.4 mg 07/29/20 00:37 Nitroglycerin 0.4mg Sl Tablet SL 08/28/20 00:36 Q5MINP PRN Chest Pain Ondansetron HCl 4 mg 07/29/20 00:37 Ondansetron 4mg/2ml Vial IV 08/28/20 00:36
--- NOTE | 2020-07-28 23:44 | PC.NURSE ---
MD Emily speaking to assembler ping pong table MD. agrees to admission.
[2020-07-29] VITALS (14 sets, daily range): BP systolic 129–164; BP diastolic 47–76; PULSE 45–61; RESP 14–18; TEMP 36.3–36.6; O2SAT 92–97; BMI 29.7; BMI 29.9
[2020-07-29 00:04] LABS: Troponin I < 0.01 ng/ml (0.00-0.034)
--- NOTE | 2020-07-29 00:18 | PC.NURSE ---
Patient admitted to 219.
[2020-07-29 01:06] LABS: Coronavirus 19 IgG Antibody Positive (Negative); Coronavirus 19 IgM Antibody Negative (Negative)
--- NOTE | 2020-07-29 01:38 | PC.NURSE ---
patient up to floor via stretcher.
[2020-07-29 02:38] LABS: Troponin I < 0.01 ng/ml (0.00-0.034)
--- NOTE | 2020-07-29 04:50 | PC.NURSE ---
shift summary, no acute changes since prior assessment, pt has had no complaints of CP or SOA since arriving to floor, pt remains on 2L NC and O2 sats have been 95-97%, pt has been tonya with HR 48-51, systolic BP 129-144
--- NOTE | 2020-07-29 06:19 | PC.NURSE ---
0245 called ED to confirm that this patient does not have any maintenance fluids ordered, ED reiterated that pt does not need fluids
[2020-07-29 06:38] LABS: Chloride 106 mmol/L (98-107); Potassium 3.6 mmoL/L (3.5-5.1); Sodium 140 mmol/L (136-145)
[2020-07-29 06:41] LABS: Anion Gap 9.6 mEq/L (5-15); Blood Urea Nitrogen 11 mg/dl (9-20); Carbon Dioxide 28 mmol/L (22.0-30.0); Creatinine Clearance Estimated 98 mL/min (50-200); Estimated Glomerular Filt Rate 84 ml/min (>60); GFR (African American) 102 ML/MIN (>60); Glucose 104 mg/dl (74-100)
[2020-07-29 06:42] LABS: Magnesium 2.1 mg/dl (1.6-2.3)
[2020-07-29 06:43] LABS: Basophils % 0.7 % (0.1-2.0); Eosinophils # 0.2 K/mm3 (0.0-0.4); Eosinophils % 3.5 % (0.1-12.0); Hematocrit 41.5 % (42.0-52.0); Lymphocytes # 1.5 K/mm3 (0.7-4.5); Lymphocytes % 30.8 % (10-50); Mean Corpuscular HGB Conc 33.8 g/dL (31.8-35.4); Mean Corpuscular Hemoglobin 28.9 pg (27.0-31.2); Mean Corpuscular Volume 85.7 fl (80-94); Mean Platelet Volume 7.8 fl (7.4-10.4); Monocytes # 0.4 K/mm3 (0.1-1.0); Monocytes % 8.1 % (1.7-9.3); Neutrophils # 2.7 K/mm3 (1.8-7.8); Neutrophils % 56.9 % (37.0-80.0); Platelet Count 263 K/mm3 (142-424); Red Blood Count 4.84 M/mm3 (4.60-6.20); Red Cell Distribution Width 14.9 % (11.5-17.5); White Blood Count 4.7 K/mm3 (4.8-10.8)
[2020-07-29 07:19] LABS: Calcium 9.1 mg/dl (8.4-10.2)
--- NOTE | 2020-07-29 08:37 | HMH.HP ---
*Admission Date: 07/29/20 *Chief complaint: Chest pain *History of present illness: 69-year-old male who presents with chest pain and pressure that has been ongoing since 1400 today and feels similar to previous cardiac chest pain. Pain improved in route with sublingual nitro. Pt denies shortness of breath and is not tachycardic with hemodynamically stable vital signs. X-rays reviewed demonstrating mild atelectasis to the right lower lobe but no significant airspace disease. No other focal abnormalities. Laboratory data is relatively unremarkable. His initial troponin is negative and the delta is also negative with the second. Patient's heart score is 6 due to his significant history. He is also intermittently still having a midsternal chest pain. Feel that he would be more appropriate for ops admission and consultation with cardiology in the a.m. and therefore patient will be admitted and reevaluated with continuing serial troponins. Above note per ER doctor, patient follows with Dr. Choi for significant cardiac risk factors. Notes that his pain is now improved, feels sore in his upper chest but had heartburn symptoms that have now resolved. [facility] History I have reviewed the patient's past medical history: Yes Medical History: Reports:: Cancer, Carotid Stenosis, Congestive Heart Failure, Coronary Artery Disease, Cerebrovascular Accident, Hyperlipidemia, Hypertension, Myocardial Infarction, Transient Ischemic Attacks (TIA) Denies:: Diabetes Mellitus Type 1, Diabetes Mellitus Type 2, Internal Pacemaker, MRSA, Seizures *Have you ever received a pneumonia vaccine?: Yes *Have you received a flu vaccine this season?: Yes Other Medical History: Denies: Blood Transfusion Reaction Other Surgeries: Yes: No Previous Surgery, Cardiac Catheterization, Cardiac Surgery, Colonoscopy, Coronary Stent, Open Heart Surgery, Ureter Stent, Other. No: Pacemaker Amputation: No Fractures: Yes (wrist) - *Social History Last grade of school completed: 9th or 10th Smoking Status: Former smoker Tobacco Type: cigarettes #Yrs smoked (if former smoker): 15 Alcohol Intake: never Alcohol Intake Frequency:: other Substance Use Type: denies use *Occupational Status:: retired Housing: apartment Household Members: none *Travel in the last 8 weeks: None Family Hx:: Coronary Artery Disease, Heart Attack, Stroke Review of Systems - Review of Systems Review of systems:: pertinent systems reviewed and negative unless documented below Meds Home Medications Medication Instructions Recorded Confirmed Type atorvastatin 40 mg tablet 40 mg PO HS 03/30/19 07/29/20 History clopidogrel 75 mg tablet 75 mg PO DAILY 03/30/19 07/29/20 History lisinopril 20 mg tablet 20 mg PO DAILY 03/30/19 07/29/20 History aspirin 81 mg tablet,delayed 81 mg PO DAILY 09/21/19 07/29/20 History release carvedilol 12.5 mg tablet 12.5 mg PO DAILY tab 09/21/19 07/29/20 History amlodipine 10 mg tablet 10 mg PO DAILY #90 tab 04/17/20 07/29/20 Rx Pioglitazone HCl 15 mg PO DAILY 07/28/20 07/29/20 History hydroCHLOROthiazide 12.5 mg PO DAILY 07/28/20 07/29/20 History [Hydrochlorothiazide] Allergies Allergy/AdvReac Type Severity Reaction Status Date / Time No Known Allergies Allergy Verified 07/29/20 01:49 Exam Vital signs and Labs for Last 24 Hours: Temp Pulse Resp BP Pulse Ox 97.7 F 51 L 18 129/47 L 95 07/29/20 04:00 07/29/20 04:00 07/29/20 04:00 07/29/20 04:00 07/29/20 04:00 Laboratory Results - last 24 hr 07/28/20 19:45: WBC 5.7, RBC 5.82, Hgb 16.7, Hct 49.7, MCV 85.5, MCH 28.7, MCHC 33.5, RDW 14.8, Plt Count 311, MPV 7.5, Neut % (Auto) 61.5, Lymph % (Auto) 28.6, [place] % (Auto) 7.3, Eos % (Auto) 2.0, Baso % (Auto) 0.6, Neut # (Auto) 3.5, Lymph # (Auto) 1.6, [place] # (Auto) 0.4, Eos # (Auto) 0.1, Baso # (Auto) 0.0 07/28/20 19:45: Sodium 144, Potassium 3.5, Chloride 105, Carbon Dioxide 26, Anion Gap 16.5 H, BUN 9, Creatinine 0.90, Estimated Creat Clear 113, Estimate
--- NOTE | 2020-07-29 08:47 | HMH.PHAVTE ---
[facility] Pharmacy VTE Monitoring - Patient Demographics Admission date: 07/28/20 Report Date: 07/29/20 Time: 08:47 Allergies/Adverse Reactions: Patient Allergies No Known Allergies Allergy (Verified 07/29/20 01:49) Height: 1.8 m Weight: 96.672 kg Patient Problems: Current Active Problems Chest pain (Acute) GERD (gastroesophageal reflux disease) (Acute) HTN (hypertension) (Chronic) CAD (coronary artery disease) (Chronic) - VTE Risk Labs: VTE Related Lab Results Hgb 14.0 g/dL (14.1-18.0) L D 07/29/20 05:21 Hct 41.5 % (42.0-52.0) L 07/29/20 05:21 Plt Count 263 K/mm3 (142-424) 07/29/20 05:21 BUN 11 mg/dl (9-20) 07/29/20 05:21 Creatinine 0.90 mg/dl (0.66-1.25) 07/29/20 05:21 Estimated Creat Clear 98 mL/min (50-200) 07/29/20 05:21 Was VTE Risk Assessment Performed: Yes VTE Score: 7 VTE Risk Level: Moderate Risk - Prophylaxis VTE Prophylaxis Ordered?: Yes Types of VTE Prophylaxis: IPCS Thigh High Location of Applied Device: Bilateral Lower Extremeties
--- NOTE | 2020-07-29 08:50 | HMH.PHAINT ---
MEDICATION RECONCILIATION COMPLETED ON PATIENT USING EXTERNAL FILL HISTORY FROM PHARMACY AND LIST FROM CARDIOLOGY/UROLOGY. -LISE GAMBLED
--- NOTE | 2020-07-29 10:50 | PC.NURSE ---
Pt. Heart rate noted to be in 40's, Nurse to room, Family in room. Pt. and family report. Pt. heart rate is normally in 50's and drops to 40's with movement. Pt. denies pain, and needs, will continue to monitor.
--- NOTE | 2020-07-29 10:53 | PC.NURSE ---
09:50 Late Entry - Routine assessment completed. Pt. A&OX4. Lungs CTA, Heart at RR. BS present x4 quad. Pt. reports aching pain in upper abdomen up to chest at 2/10. Pt. reports pain as better and different than last night. Pt. denies needs, will continue to monitor.
--- NOTE | 2020-07-29 11:06 | HMH.CNCARD ---
History of Present Illness Consult date: 07/29/20 Requesting physician: Tuan Fry Consult reason: chest pain Chief complaint: Chest pain, nausea Additional Medical History:: 1. Hypertension A. Echo, 09/2019, 1. Mildly enlarged left atrium, normal left ventricular size, mild concentric left ventricular hypertrophy, visually estimated ejection fraction 50% with segmental wall motion abnormality described above, grade 2 diastolic dysfunction seen with tissue Doppler evidence of raise left atrial pressure. 2. Mild mitral and tricuspid regurgitation. 3. No significant pericardial effusion noted 2. Remote tobacco use, discontinued approximately 1999 3. Hyperlipidemia 4. Dysphagia, 07/2020 5. Coronary artery disease with history of VT and stents by Dr. Vivian Brink, [place], [place], approx 2015 A. Lexiscan myoview, 09/2019, 1. The EKG portion of the Lexiscan is nondiagnostic. 2. Scintigraphic evidence of mixed ischemia and scar involving the inferior, inferolateral and posterolateral wall, computer derived ejection fraction 59% with segmental wall motion abnormality described above, right ventricle is normal size and contractility. 3. Abnormal Lexiscan Myoview study. B. [facility], 09/2019,ANGIOGRAPHIC RESULTS The left main artery Normal The left anterior descending artery Has a stent in the proximal segment which is widely patent with mild concentric 20% in-stent restenosis. The mid segment has 20 and 30% stenoses.The circumflex artery Is a nondominant vessel and has 30% sequential stenoses in the ramus intermedius. The circumflex artery itself has 10 to 20% stenosis The right coronary artery Is a large dominant vessel and has stents through the proximal mid distal segment which extends through the mid very large posterior descending artery all in a contiguous manner. The proximal mid and distal portion of the right coronary artery has mild 30% concentric in-stent restenosis. There is 140% in-stent restenotic lesion within the proximal portion of the posterior descending artery. 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 Medical management 6. History of BPH, status post TURP History of present illness: 69-year-old male who presents with chest pain and pressure that has been ongoing since 1400 today and feels similar to previous cardiac chest pain. Pain improved in route with sublingual nitro. Pt denies shortness of breath and is not tachycardic with hemodynamically stable vital signs. X-rays reviewed demonstrating mild atelectasis to the right lower lobe but no significant airspace disease. No other focal abnormalities. Laboratory data is relatively unremarkable. His initial troponin is negative and the delta is also negative with the second. Patient's heart score is 6 due to his significant history. He is also intermittently still having a midsternal chest pain. Feel that he would be more appropriate for ops admission and consultation with cardiology in the a.m. and therefore patient will be admitted and reevaluated with continuing serial troponins. Above note per ER doctor, patient follows with Dr. Choi for significant cardiac risk factors. Notes that his pain is now improved, feels sore in his upper chest but had heartburn symptoms that have now resolved. The above per Dr. Fry. Patient relates over the last for 5 days not feeling well which progressed to include some right lower rib upper abdominal discomfort which progressed from there to include diaphragmatic area
--- NOTE | 2020-07-29 13:40 | PC.NURSE ---
Dr. Fry in room.
--- NOTE | 2020-07-29 13:48 | HMH.ACPN2 ---
Internal Medicine - PN: Subj *Date: 07/29/20 *Time: 13:48 Interval history: Patient was seen by cardiology, and they felt pain was noncardiac-I agree. I returned and discussed with patient further GI symptomatology and he reports significant pain and some coughing after swallowing and occasional sensation of food sticking. Exam Vital signs and Labs for Last 24 Hours: Temp Pulse Resp BP Pulse Ox 97.6 F 50 L 14 137/57 L 96 07/29/20 08:00 07/29/20 12:00 07/29/20 08:00 07/29/20 08:00 07/29/20 08:00 Laboratory Results - last 24 hr 07/28/20 19:45: WBC 5.7, RBC 5.82, Hgb 16.7, Hct 49.7, MCV 85.5, MCH 28.7, MCHC 33.5, RDW 14.8, Plt Count 311, MPV 7.5, Neut % (Auto) 61.5, Lymph % (Auto) 28.6, [place] % (Auto) 7.3, Eos % (Auto) 2.0, Baso % (Auto) 0.6, Neut # (Auto) 3.5, Lymph # (Auto) 1.6, [place] # (Auto) 0.4, Eos # (Auto) 0.1, Baso # (Auto) 0.0 07/28/20 19:45: Sodium 144, Potassium 3.5, Chloride 105, Carbon Dioxide 26, Anion Gap 16.5 H, BUN 9, Creatinine 0.90, Estimated Creat Clear 113, Estimated GFR 84, Est GFR ( Amer) 102, Glucose 94, Calcium 10.2, Troponin I < 0.01 07/28/20 19:45: SARS-CoV-2 IgG Ab (Rapid) Positive A, SARS-CoV-2 IgM Ab (Rapid) Negative 07/28/20 23:00: Troponin I < 0.01 07/29/20 02:03: Troponin I < 0.01 07/29/20 05:21: WBC 4.7 L, RBC 4.84, Hgb 14.0 L D, Hct 41.5 L, MCV 85.7, MCH 28.9, MCHC 33.8, RDW 14.9, Plt Count 263, MPV 7.8, Neut % (Auto) 56.9, Lymph % (Auto) 30.8, [place] % (Auto) 8.1, Eos % (Auto) 3.5, Baso % (Auto) 0.7, Neut # (Auto) 2.7, Lymph # (Auto) 1.5, [place] # (Auto) 0.4, Eos # (Auto) 0.2, Baso # (Auto) 0.0 07/29/20 05:21: Sodium 140, Potassium 3.6, Chloride 106, Carbon Dioxide 28, Anion Gap 9.6, BUN 11, Creatinine 0.90, Estimated Creat Clear 98, Estimated GFR 84, Est GFR ( Amer) 102, Glucose 104 H, Calcium 9.1 D, Magnesium 2.1 I & O for Last 24 hours: Intake & Output 07/27/20 07/28/20 07/29/20 07/30/20 11:59 11:59 11:59 11:59 Output Total 700 / 700 Balance -700 / -700 Weight 213 lb 2 oz Narrative: GI exam unremarkable except for right upper quadrant fullness and pain with a positive Fields sign. Otherwise exam with soft abdomen and no tenderness elsewhere. Heart rate regular. No peripheral edema. Patient is alert, oriented. Pleasant. Assessment and Plan (1) GERD (gastroesophageal reflux disease) Status: Acute Category: Medical Code(s): K21.9 - Gastro-esophageal reflux disease without esophagitis (2) Chest pain Status: Acute Qualifiers: Ischemic chest pain type: stable angina pectoris Category: Medical Code(s): R07.9 - Chest pain, unspecified (3) CAD (coronary artery disease) Status: Chronic Qualifiers: Category: Medical Code(s): I25.10 - Atherosclerotic heart disease of [place] coronary artery without angina pectoris (4) HTN (hypertension) Status: Chronic Qualifiers: Category: Medical Code(s): I10 - Essential (primary) hypertension (5) Abnormal chest x-ray Status: Acute Category: Medical Code(s): R93.89 - Abnormal findings on diagnostic imaging of other specified body structures - Assessment and plan all Dx Assessment and Plan for all problems:: Given right upper quadrant pain and persistent symptoms I have elected to watch patient overnight, we will start proton pump inhibitor and asked surgery for endoscopy tomorrow along with upper quadrant ultrasound
--- NOTE | 2020-07-29 15:25 | HMH.GSCON ---
*Admission Date: 07/28/20 *Reason for consult:: Abdominal pain *History of present illness: Patient is a 69-year-old male from [place]. He has a cardiac history. He was admitted couple of days ago with atypical chest pain. He is undergone evaluation and cardiology consultation. It is felt that this is noncardiac in nature. He states that the pain originated in the right abdomen and radiated to the epigastrium and into his chest. Patient does give a history of dysphagia occasionally. Surgical consultation was ordered to investigate potential gastrointestinal etiology. Patient does have a gallbladder ultrasound ordered for tomorrow morning. Review of Systems - Review of Systems Review of systems:: pertinent systems reviewed and negative unless documented below [facility] History Medical History: Reports:: Cancer, Carotid Stenosis, Congestive Heart Failure, Coronary Artery Disease, Cerebrovascular Accident, Hyperlipidemia, Hypertension, Myocardial Infarction, Transient Ischemic Attacks (TIA) Denies:: Diabetes Mellitus Type 1, Diabetes Mellitus Type 2, Internal Pacemaker, MRSA, Seizures *Have you ever received a pneumonia vaccine?: Yes *Have you received a flu vaccine this season?: Yes Other Medical History: Denies: Blood Transfusion Reaction Other Surgeries: Yes: No Previous Surgery, Cardiac Catheterization, Cardiac Surgery, Colonoscopy, Coronary Stent, Open Heart Surgery, Ureter Stent, Other. No: Pacemaker Amputation: No Fractures: Yes (wrist) - *Social History Last grade of school completed: 9th or 10th Smoking Status: Former smoker Tobacco Type: cigarettes #Yrs smoked (if former smoker): 15 Alcohol Intake: never Alcohol Intake Frequency:: other Substance Use Type: denies use *Occupational Status:: retired Housing: apartment Household Members: none *Travel in the last 8 weeks: None Family Hx:: Coronary Artery Disease, Heart Attack, Stroke Meds Home Medications Medication Instructions Recorded Confirmed Type atorvastatin 40 mg tablet 40 mg PO HS 03/30/19 07/29/20 History clopidogrel 75 mg tablet 75 mg PO DAILY 03/30/19 07/29/20 History lisinopril 20 mg tablet 20 mg PO DAILY 03/30/19 07/29/20 History aspirin 81 mg tablet,delayed 81 mg PO DAILY 09/21/19 07/29/20 History release carvedilol 12.5 mg tablet 12.5 mg PO DAILY tab 09/21/19 07/29/20 History amlodipine 10 mg tablet 10 mg PO DAILY #90 tab 04/17/20 07/29/20 Rx Pioglitazone HCl 15 mg PO DAILY 07/28/20 07/29/20 History hydroCHLOROthiazide 12.5 mg PO DAILY 07/28/20 07/29/20 History [Hydrochlorothiazide] Allergies Allergy/AdvReac Type Severity Reaction Status Date / Time No Known Allergies Allergy Verified 07/29/20 01:49 Exam Vital signs and Labs for Last 24 Hours: Temp Pulse Resp BP Pulse Ox 97.6 F 50 L 14 137/57 L 96 07/29/20 08:00 07/29/20 12:00 07/29/20 08:00 07/29/20 08:00 07/29/20 08:00 Laboratory Results - last 24 hr 07/28/20 19:45: WBC 5.7, RBC 5.82, Hgb 16.7, Hct 49.7, MCV 85.5, MCH 28.7, MCHC 33.5, RDW 14.8, Plt Count 311, MPV 7.5, Neut % (Auto) 61.5, Lymph % (Auto) 28.6, [place] % (Auto) 7.3, Eos % (Auto) 2.0, Baso % (Auto) 0.6, Neut # (Auto) 3.5, Lymph # (Auto) 1.6, [place] # (Auto) 0.4, Eos # (Auto) 0.1, Baso # (Auto) 0.0 07/28/20 19:45: Sodium 144, Potassium 3.5, Chloride 105, Carbon Dioxide 26, Anion Gap 16.5 H, BUN 9, Creatinine 0.90, Estimated Creat Clear 113, Estimated GFR 84, Est GFR ( Amer) 102, Glucose 94, Calcium 10.2, Troponin I < 0.01 07/28/20 19:45: SARS-CoV-2 IgG Ab (Rapid) Positive A, SARS-CoV-2 IgM Ab (Rapid) Negative 07/28/20 23:00: Troponin I < 0.01 07/29/20 02:03: Troponin I < 0.01 07/29/20 05:21: WBC 4.7 L, RBC 4.84, Hgb 14.0 L D, Hct 41.5 L, MCV 85.7, MCH 28.9, MCHC 33.8, RDW 14.9, Plt Count 263, MPV 7.8, Neut % (Auto) 56.9, Lymph % (Auto) 30.8, [place] % (Auto) 8.1, Eos % (Auto) 3.5, Baso % (Auto) 0.7, Neut # (Auto) 2.7, Lymph # (Auto) 1.5, [place] # (Auto) 0.4, Eos # (Auto) 0.2, Baso # (Auto) 0.0 07/29/20 05:21: So
--- NOTE | 2020-07-29 15:56 | PC.NURSE ---
Reassessment completed. No acute changes from previous assessment. Lungs CTA, Heart at 50 bpm, BS present x4 quad. Pt. rates RUQ pain at 2/10 resting, and worsens with palpation Pt. denies needs, will continue to monitor.
[2020-07-30] VITALS (7 sets, daily range): BP systolic 125–138; BP diastolic 55–68; PULSE 45–70; RESP 18–20; TEMP 36.3–36.8; O2SAT 92–98; BMI 29.9
--- NOTE | 2020-07-30 06:32 | PC.NURSE ---
Pt is A&Ox4 and has ambulated in room well independently. Pt has denied any pain t/o shift. Lungs CTA. ABD is soft, not tender, with active BS. No BM this shift. Pt has showered and in clean gown and has been NPO for upcoming u/s and possible surgery. TEDS refused. Sinus tonya with 1deg. AVB on tele. VSS, call light within reach
[2020-07-30 06:44] LABS: Basophils % 0.8 % (0.1-2.0); Chloride 105 mmol/L (98-107); Eosinophils # 0.2 K/mm3 (0.0-0.4); Eosinophils % 3.1 % (0.1-12.0); Hematocrit 41.3 % (42.0-52.0); Hemoglobin 13.9 g/dL (14.1-18.0); Lymphocytes # 1.4 K/mm3 (0.7-4.5); Lymphocytes % 28.4 % (10-50); Mean Corpuscular HGB Conc 33.6 g/dL (31.8-35.4); Mean Corpuscular Hemoglobin 28.8 pg (27.0-31.2); Mean Corpuscular Volume 85.8 fl (80-94); Mean Platelet Volume 7.9 fl (7.4-10.4); Monocytes # 0.4 K/mm3 (0.1-1.0); Monocytes % 8.5 % (1.7-9.3); Neutrophils # 2.9 K/mm3 (1.8-7.8); Neutrophils % 59.3 % (37.0-80.0); Platelet Count 259 K/mm3 (142-424); Red Blood Count 4.82 M/mm3 (4.60-6.20); Red Cell Distribution Width 14.8 % (11.5-17.5); White Blood Count 4.9 K/mm3 (4.8-10.8)
[2020-07-30 06:45] LABS: Potassium 3.7 mmoL/L (3.5-5.1); Sodium 138 mmol/L (136-145)
[2020-07-30 06:47] LABS: Alanine Aminotransferase 22 U/L (12-78); Alkaline Phosphatase 71 U/L (38-126); Aspartate Amino Transferase 40 U/L (17-59); Bilirubin,Total 0.7 mg/dl (0.2-1.3); Blood Urea Nitrogen 17 mg/dl (9-20); Creatinine Clearance Estimated 89 mL/min (50-200); Estimated Glomerular Filt Rate 67 ml/min (>60); GFR (African American) 81 ML/MIN (>60)
[2020-07-30 06:48] LABS: Albumin/Globulin Ratio 1.4 (1.1-1.8); Anion Gap 8.7 mEq/L (5-15); Carbon Dioxide 28 mmol/L (22.0-30.0); Globulin 2.8 g/dL (1.3-3.2); Glucose 107 mg/dl (74-100); Total Protein,Serum 6.8 g/dl (6.3-8.2)
--- NOTE | 2020-07-30 07:00 | US_ITS ---
PROCEDURE: US GALLBLADDER CLINICAL INDICATION: RUQ pain COMPARISON: No exams were available for comparison FINDINGS: Pancreas: Unremarkable/Not well seen Liver: Unremarkable. There is appropriate direction of blood flow within a non dilated portal vein. Right kidney: Unremarkable appearing. No hydronephrosis. There is a small right renal cyst at 2 cm. This is in the parapelvic portion. Gallbladder: There are small stones in the gallbladder. There is also a small polyp along the right lateral aspect of the gallbladder wall. No gallbladder wall thickening, pericholecystic fluid, or biliary dilatation is evident. Common bile duct is normal at 4 mm. IMPRESSION: Cholelithiasis with small gallbladder polyp. Dictated by: Richie Murrell MD 07/30/2020 10:54 Richie Murrell MD in [place] 07/30/2020 10:54
--- NOTE | 2020-07-30 07:09 | HMH.GSPN ---
Subjective Narrative: sleeping Progress Note: A&P (1) GERD (gastroesophageal reflux disease) Status: Acute (2) Chest pain Status: Acute (3) CAD (coronary artery disease) Status: Chronic (4) HTN (hypertension) Status: Chronic (5) Abnormal chest x-ray Status: Acute Assessment and Plan for All Diagnoses:: Ultrasound this morning. Pending this plan possible procedure later. Exam Vital signs and Labs for Last 24 Hours: Temp Pulse Resp BP Pulse Ox 97.4 F L 48 L 18 125/68 97 07/30/20 04:00 07/30/20 04:00 07/30/20 04:00 07/30/20 04:00 07/30/20 04:00 Laboratory Results - last 24 hr 07/29/20 05:21: Hgb 14.0 L D 07/29/20 05:21: Calcium 9.1 D 07/30/20 06:00: WBC 4.9, RBC 4.82, Hgb 13.9 L, Hct 41.3 L, MCV 85.8, MCH 28.8, MCHC 33.6, RDW 14.8, Plt Count 259, MPV 7.9, Neut % (Auto) 59.3, Lymph % (Auto) 28.4, [place] % (Auto) 8.5, Eos % (Auto) 3.1, Baso % (Auto) 0.8, Neut # (Auto) 2.9, Lymph # (Auto) 1.4, [place] # (Auto) 0.4, Eos # (Auto) 0.2, Baso # (Auto) 0.0 07/30/20 06:00: Sodium 138, Potassium 3.7, Chloride 105, Carbon Dioxide 28, Anion Gap 8.7, BUN 17 D, Creatinine 1.10 D, Estimated Creat Clear 89, Estimated GFR 67, Est GFR ( Amer) 81 D, Glucose 107 H, Calcium 9.0, Total Bilirubin 0.7, AST 40, ALT 22, Alkaline Phosphatase 71, Total Protein 6.8, Albumin 4.0, Globulin 2.8, Albumin/Globulin Ratio 1.4 I & O for Last 24 hours: Intake & Output 07/27/20 07/28/20 07/29/20 07/30/20 11:59 11:59 11:59 11:59 Intake Total 730 / 730 Output Total 700 / 700 1225 / 1225 Balance -700 / -700 -495 / -495 Weight 213 lb 2 oz 214 lb 1 oz
--- NOTE | 2020-07-30 07:42 | HMH.ACPN2 ---
Internal Medicine - PN: Subj *Date: 07/30/20 *Time: 14:26 Interval history: 69-year-old gentleman with abdominal pain versus chest pain. Did well overnight. Tolerating baseline oxygen. States he wears 2 L continuously at home. Is n.p.o. this morning and awaiting imaging of abdomen. Denies any nausea or vomiting. No fever or worsening shortness of breath. Exam Vital signs and Labs for Last 24 Hours: Temp Pulse Resp BP Pulse Ox 97.4 F L 48 L 18 125/68 97 07/30/20 04:00 07/30/20 04:00 07/30/20 04:00 07/30/20 04:00 07/30/20 04:00 Laboratory Results - last 24 hr 07/30/20 06:00: WBC 4.9, RBC 4.82, Hgb 13.9 L, Hct 41.3 L, MCV 85.8, MCH 28.8, MCHC 33.6, RDW 14.8, Plt Count 259, MPV 7.9, Neut % (Auto) 59.3, Lymph % (Auto) 28.4, [place] % (Auto) 8.5, Eos % (Auto) 3.1, Baso % (Auto) 0.8, Neut # (Auto) 2.9, Lymph # (Auto) 1.4, [place] # (Auto) 0.4, Eos # (Auto) 0.2, Baso # (Auto) 0.0 07/30/20 06:00: Sodium 138, Potassium 3.7, Chloride 105, Carbon Dioxide 28, Anion Gap 8.7, BUN 17 D, Creatinine 1.10 D, Estimated Creat Clear 89, Estimated GFR 67, Est GFR ( Amer) 81 D, Glucose 107 H, Calcium 9.0, Total Bilirubin 0.7, AST 40, ALT 22, Alkaline Phosphatase 71, Total Protein 6.8, Albumin 4.0, Globulin 2.8, Albumin/Globulin Ratio 1.4 I & O for Last 24 hours: Intake & Output 07/27/20 07/28/20 07/29/20 07/30/20 23:59 23:59 23:59 23:59 Intake Total 360 / 360 370 / 370 Output Total 1675 / 1675 250 / 250 Balance -1315 / -1315 120 / 120 Weight 111.13 kg 97 kg 97.097 kg - Constitutional no acute distress, obese - *Routine HEENT Exam Head: Present: normocephalic Eye: Present: EOMI, PERRL ENT: Present: mucous membranes moist - *Routine Neck Exam Present: supple. Absent: lymphadenopathy - *Routine Respiratory Exam Present: prolonged expiratory phase, diminished air movement. Absent: wheezes, crackles - *Routine Cardiovascular Exam Present: RRR - *Routine Abdominal Exam Present: soft, normoactive bowel sounds, tenderness (Right upper and epigastric regions, no rebound or guarding) - *Routine Extremities Exam Absent: cyanosis, clubbing, edema - *Routine Skin Exam Present: warm. Absent: rash - *Routine Neurological Exam Present: alert, oriented X3 Assessment and Plan (1) GERD (gastroesophageal reflux disease) Status: Acute Category: Medical Code(s): K21.9 - Gastro-esophageal reflux disease without esophagitis (2) Chest pain Status: Resolved Qualifiers: Ischemic chest pain type: stable angina pectoris Category: Medical Code(s): R07.9 - Chest pain, unspecified (3) CAD (coronary artery disease) Status: Chronic Qualifiers: Category: Medical Code(s): I25.10 - Atherosclerotic heart disease of [place] coronary artery without angina pectoris (4) HTN (hypertension) Status: Chronic Qualifiers: Category: Medical Code(s): I10 - Essential (primary) hypertension (5) Abnormal chest x-ray Status: Acute Category: Medical Code(s): R93.89 - Abnormal findings on diagnostic imaging of other specified body structures (6) Cholelithiasis Status: Acute Category: Medical Code(s): K80.20 - Calculus of gallbladder without cholecystitis without obstruction - Assessment and plan all Dx Assessment and Plan for all problems:: 69-year-old male with upper abdominal pain, chest pain ruled out. Surgery consulted, appreciate recommendations. Any imaging today of his abdomen to define cholelithiasis versus cholecystitis. Pending findings, consider urgent surgery or outpatient management. Will advance diet after imaging pending surgical intervention plans. Continues to require inpatient management at this time. If no surgery during admission, will likely meet discharge criteria tomorrow
[2020-07-30 11:00] LABS: Amylase 57 U/L (30-110); Lipase 191 U/L (23-300)
--- NOTE | 2020-07-30 11:47 | HMH.GSPN ---
Subjective Narrative: Patient has had some pain in the right upper quadrant and right lateral abdomen Progress Note: A&P (1) GERD (gastroesophageal reflux disease) Status: Acute (2) Chest pain Status: Acute (3) CAD (coronary artery disease) Status: Chronic (4) HTN (hypertension) Status: Chronic (5) Abnormal chest x-ray Status: Acute Assessment and Plan for All Diagnoses:: Gallbladder ultrasound reveals a couple small gallstones with possibly some mild gallbladder wall thickening but relatively unremarkable. Consideration was being given for cholecystectomy today. However, the patient has been on Plavix and taking Plavix this morning. This does not appear to be an acute cholecystitis and therefore the risk of proceeding with surgery on Plavix would outweigh the benefit. I reviewed the patient's laboratory studies. He has not had pancreatic enzymes. We will check these to make sure that he is not had any possible pancreatitis. Plan to obtain CT scan of the abdomen and pelvis to evaluate for other etiology. May need cholecystectomy after Plavix is held. Exam Vital signs and Labs for Last 24 Hours: Temp Pulse Resp BP Pulse Ox 98.2 F 50 L 20 133/62 98 07/30/20 08:00 07/30/20 08:00 07/30/20 08:00 07/30/20 08:00 07/30/20 08:00 Laboratory Results - last 24 hr 07/30/20 06:00: WBC 4.9, RBC 4.82, Hgb 13.9 L, Hct 41.3 L, MCV 85.8, MCH 28.8, MCHC 33.6, RDW 14.8, Plt Count 259, MPV 7.9, Neut % (Auto) 59.3, Lymph % (Auto) 28.4, Cloud % (Auto) 8.5, Eos % (Auto) 3.1, Baso % (Auto) 0.8, Neut # (Auto) 2.9, Lymph # (Auto) 1.4, Cloud # (Auto) 0.4, Eos # (Auto) 0.2, Baso # (Auto) 0.0 07/30/20 06:00: Sodium 138, Potassium 3.7, Chloride 105, Carbon Dioxide 28, Anion Gap 8.7, BUN 17 D, Creatinine 1.10 D, Estimated Creat Clear 89, Estimated GFR 67, Est GFR ( Amer) 81 D, Glucose 107 H, Calcium 9.0, Total Bilirubin 0.7, AST 40, ALT 22, Alkaline Phosphatase 71, Total Protein 6.8, Albumin 4.0, Globulin 2.8, Albumin/Globulin Ratio 1.4 07/30/20 06:00: Amylase 57 07/30/20 06:00: Lipase 191 I & O for Last 24 hours: Intake & Output 07/27/20 07/28/20 07/29/20 07/30/20 11:59 11:59 11:59 11:59 Intake Total 730 / 730 Output Total 700 / 700 1225 / 1225 Balance -700 / -700 -495 / -495 Weight 213 lb 2 oz 214 lb 1 oz - *Routine Abdominal Exam Present: tenderness
--- NOTE | 2020-07-30 11:50 | CT_ITS ---
PROCEDURE: CT ABDOMEN PELVIS W CON CLINICAL INDICATION: RIGHT SIDED ABDOMINAL TENDERNESS Right-sided abdominal pain and tenderness COMPARISON: No exams were available for comparison TECHNIQUE: IV Contrast: 75ML Isovue 370 Oral Contrast None Axial images obtained with sagittal and coronal reformats. All CT scans at the facility use one or more dose reduction, viz: automated exposure control, ma/kV adjustment per patient size (including targeted exams where dose is matched to indication, i.e. head), or iterative reconstruction technique. FINDINGS: LOWER THORAX: There are mild atelectatic or fibrotic changes in the lung bases posteriorly. There are coronary artery calcifications and/or stents noted ABDOMEN & PELVIS: The liver, spleen, adrenal glands, and pancreas have an unremarkable appearance. There are scattered small perigastric and periportal lymph nodes. Gallstones are present. There are bilateral renal cysts and renal arterial calcification noted. Unremarkable appendix. No intestinal obstruction or free air. There is a small umbilical hernia containing fat. Colonic diverticulosis involves the sigmoid colon. No evidence of diverticulitis. The prostate is enlarged at 5.7 cm with some coarse calcification. Urinary bladder wall is thickened. No pelvic mass or abnormal fluid collection There is grade 1 spondylitic spondylolisthesis of L5 on S1 with degenerative disc disease at that level. IMPRESSION: 1. Cholelithiasis. 2. Colonic diverticulosis without diverticulitis. 3. Enlarged prostate. 4. Thickened urinary bladder wall. This is nonspecific and could in part be due to nondistention. Cystitis or bladder hypertrophy secondary to chronic bladder outlet obstruction are considerations. Dictated by: Richie Murrell MD 07/30/2020 14:51 Richie Murrell MD in [place] 07/30/2020 14:51
--- NOTE | 2020-07-30 14:02 | PC.NURSE ---
Pt off floor for procedure with radiology
--- NOTE | 2020-07-30 14:28 | PC.NURSE ---
PT BACK TO FLOOR FROM PROCEDURE
--- NOTE | 2020-07-30 17:36 | PC.NURSE ---
Alert and oriented x4. Lungs clear but diminished. He uses 2L with simple mask when sleeping. He has been sinus tonya/1st degree block on telemetry running in the 50's. Some complaints of minor abdominal pain this morning. Tolerating diet well. Updated son on plan of care with permission from patient. Will continue to monitor.
[2020-07-31] VITALS: BP 116/61; PULSE 48; PULSE 50; RESP 20; TEMP 36.5; O2SAT 97
[2020-07-31 03:24] VITALS: BP 125/71; PULSE 59; RESP 18; TEMP 36.5; O2SAT 95
[2020-07-31 04:00] VITALS: PULSE 50
[2020-07-31 05:00] VITALS: BMI 29.7
--- NOTE | 2020-07-31 05:05 | PC.NURSE ---
shift summary, no acute changes since prior assessment, pt has rested well t/o shift, has had no complaints of pain this shift, pt on room air until going to bed, venti mask on at bedtime, checked by RT, monitor and storage bin tender shows sinus tonya with HR from 48-59, systolic BP 116-125, pt using urinal independently with dark yellow urine noted
[2020-07-31 06:48] LABS: Basophils % 0.8 % (0.1-2.0); Eosinophils # 0.2 K/mm3 (0.0-0.4); Eosinophils % 2.9 % (0.1-12.0); Hematocrit 43.3 % (42.0-52.0); Hemoglobin 14.4 g/dL (14.1-18.0); Lymphocytes # 1.3 K/mm3 (0.7-4.5); Lymphocytes % 26.4 % (10-50); Mean Corpuscular HGB Conc 33.1 g/dL (31.8-35.4); Mean Corpuscular Hemoglobin 29.4 pg (27.0-31.2); Mean Corpuscular Volume 88.7 fl (80-94); Mean Platelet Volume 7.5 fl (7.4-10.4); Monocytes # 0.5 K/mm3 (0.1-1.0); Monocytes % 9.5 % (1.7-9.3); Neutrophils # 3.1 K/mm3 (1.8-7.8); Neutrophils % 60.4 % (37.0-80.0); Platelet Count 240 K/mm3 (142-424); Red Blood Count 4.89 M/mm3 (4.60-6.20); Red Cell Distribution Width 14.7 % (11.5-17.5); White Blood Count 5.1 K/mm3 (4.8-10.8)
[2020-07-31 06:52] LABS: Chloride 107 mmol/L (98-107); Sodium 140 mmol/L (136-145)
[2020-07-31 06:53] LABS: Potassium 3.9 mmoL/L (3.5-5.1)
--- NOTE | 2020-07-31 06:53 | HMH.GSPN ---
Subjective Narrative: Patient sleeping very soundly. Progress Note: A&P (1) GERD (gastroesophageal reflux disease) Status: Acute (2) Chest pain Status: Resolved (3) CAD (coronary artery disease) Status: Chronic (4) HTN (hypertension) Status: Chronic (5) Abnormal chest x-ray Status: Acute (6) Cholelithiasis Status: Acute Assessment and Plan for All Diagnoses:: CT scan done yesterday unremarkable except cholelithiasis. Amylase,Lipase normal. Symptoms likely primarily gallbladder. No evidence of acute cholecystitis. May be able to undergo cholecystectomy in several days if able to hold Plavix. This may be able to be done as an outpatient. Will check OR schedule. Likely will benefit from EGD at some point in the future due to his long standing history of occassional dysphagia symptoms but upper GI etiology seems less likely as source for his current symptoms. Exam Vital signs and Labs for Last 24 Hours: Temp Pulse Resp BP Pulse Ox 97.7 F 50 L 18 125/71 95 07/31/20 03:24 07/31/20 04:00 07/31/20 03:24 07/31/20 03:24 07/31/20 03:24 Laboratory Results - last 24 hr 07/30/20 06:00: Amylase 57 07/30/20 06:00: Lipase 191 I & O for Last 24 hours: Intake & Output 07/28/20 07/29/20 07/30/20 07/31/20 11:59 11:59 11:59 11:59 Intake Total 730 / 730 Output Total 700 / 700 1225 / 1225 750 / 750 Balance -700 / -700 -495 / -495 -750 / -750 Weight 213 lb 2 oz 214 lb 1 oz 212 lb 2 oz
[2020-07-31 06:55] LABS: Alanine Aminotransferase 20 U/L (12-78); Albumin Level 3.8 g/dl (3.5-5.0); Albumin/Globulin Ratio 1.3 (1.1-1.8); Alkaline Phosphatase 66 U/L (38-126); Anion Gap 6.9 mEq/L (5-15); Aspartate Amino Transferase 28 U/L (17-59); Bilirubin,Total 0.6 mg/dl (0.2-1.3); Blood Urea Nitrogen 23 mg/dl (9-20); Calcium 8.9 mg/dl (8.4-10.2); Carbon Dioxide 30 mmol/L (22.0-30.0); Creatinine Clearance Estimated 89 mL/min (50-200); Estimated Glomerular Filt Rate 67 ml/min (>60); GFR (African American) 81 ML/MIN (>60); Glucose 100 mg/dl (74-100); Total Protein,Serum 6.8 g/dl (6.3-8.2)
[2020-07-31 06:56] LABS: Magnesium 2.4 mg/dl (1.6-2.3)
[2020-07-31 08:00] VITALS: BP 124/58; PULSE 51; PULSE 53; RESP 15; TEMP 36.6; O2SAT 94
--- NOTE | 2020-07-31 08:20 | HMH.DCSUM ---
General - General Admission date:: 07/29/20 Discharge date: 07/31/20 HPI HPI: 69-year-old male who presents with chest pain and pressure that has been ongoing since 1400 today and feels similar to previous cardiac chest pain. Pain improved in route with sublingual nitro. Pt denies shortness of breath and is not tachycardic with hemodynamically stable vital signs. X-rays reviewed demonstrating mild atelectasis to the right lower lobe but no significant airspace disease. No other focal abnormalities. Laboratory data is relatively unremarkable. His initial troponin is negative and the delta is also negative with the second. Patient's heart score is 6 due to his significant history. He is also intermittently still having a midsternal chest pain. Feel that he would be more appropriate for ops admission and consultation with cardiology in the a.m. and therefore patient will be admitted and reevaluated with continuing serial troponins. Above note per ER doctor, patient follows with Dr. Choi for significant cardiac risk factors. Notes that his pain is now improved, feels sore in his upper chest but had heartburn symptoms that have now resolved. Hospital Course Hospital Course: Patient was admitted, ruled out for VT, cardiology saw patient, reviewed their prior records and discussed case with him, clinically and biochemically patient does not appear to have angina or recurrent cardiac disease. Attention was then turned to his GI tract, patient's exam was consistent with gallbladder disease and ultrasound and CT scan did show evidence of gallbladder wall thickening with some stones. The patient was consulted by surgery who agreed that surgical intervention was necessary but patient was currently on Plavix. This was discontinued. Patient was fed a low-fat diet along with the initiation of proton pump inhibitors and felt much better. This morning the patient is doing well, able to eat, much less pain unless being examined -and wishes to be discharged home. Plan will be to go home, we will initiate proton pump therapy, surgery follow-up in 2 days for scheduling outpatient cholecystectomy. Objective Vital signs: Temp Pulse Resp BP Pulse Ox 97.7 F 50 L 18 125/71 95 07/31/20 03:24 07/31/20 04:00 07/31/20 03:24 07/31/20 03:24 07/31/20 03:24 no acute distress - *Routine HEENT Exam Head: Present: normocephalic Eye: Present: EOMI, PERRL ENT: Present: mucous membranes moist - *Routine Neck Exam Present: supple - *Routine Respiratory Exam Present: CTA bilaterally - *Routine Cardiovascular Exam Present: RRR - *Routine Abdominal Exam Present: soft, normoactive bowel sounds, tenderness Comments: Minimal right upper quadrant tenderness with Fields sign - *Routine Extremities Exam Absent: cyanosis, clubbing, edema - *Routine Skin Exam Present: warm. Absent: rash - Detailed Eye Exam Eyelids: Bilateral normal inspection Results Labs on day of discharge: Labs from last 24 hours 07/31/20 07/31/20 07/30/20 05:43 05:43 06:00 WBC 5.1 RBC 4.89 Hgb 14.4 Hct 43.3 MCV 88.7 MCH 29.4 MCHC 33.1 RDW 14.7 Plt Count 240 MPV 7.5 Neut % (Auto) 60.4 Lymph % (Auto) 26.4 Surry % (Auto) 9.5 H Eos % (Auto) 2.9 Baso % (Auto) 0.8 Neut # (Auto) 3.1 Lymph # (Auto) 1.3 Surry # (Auto) 0.5 Eos # (Auto) 0.2 Baso # (Auto) 0.0 Sodium 140 Potassium 3.9 Chloride 107 Carbon Dioxide 30 Anion Gap 6.9 BUN 23 H D Creatinine 1.10 Estimated Creat Clear 89 Estimated GFR 67 Est GFR ( Amer) 81 Glucose 100 Calcium 8.9 Magnesium 2.4 H D Total Bilirubin 0.6 AST 28 D ALT 20 Alkaline Phosphatase 66 Total Protein 6.8 Albumin 3.8 Globulin 3.0 Albumin/Globulin Ratio 1.3 Amylase Lipase 191 07/30/20 06:00 WBC RBC Hgb Hct MCV MCH MCHC RDW Plt Count MPV
== END 2020-07-31 11:15 | disposition home or self-care (01) ==
LOC: ER 20:04 → 2ND 07-29 00:51
PROVIDERS: Internal Medicine Adolescent Medicine; Surgery; Admitting Provider Internal Medicine Adolescent Medicine; Emergency Provider Student in an Organized Health Care Education/Training Program; PCP Nurse Practitioner Family; Visit Provider Internal Medicine Adolescent Medicine
PROC: 0FT44ZZ Resection of Gallbladder, Percutaneous Endoscopic Approach (ICD-10-PCS; CPT 47562; principal; 2020-07-30 12:00)
DX: K21.9 Gastro-esophageal reflux disease without esophagitis (principal); Z86.19 Personal history of other infectious and parasitic diseases; I11.0 Hypertensive heart disease with heart failure; I50.9 Heart failure, unspecified; I25.10 Atherosclerotic heart disease of native coronary artery without angina pectoris; Z95.5 Presence of coronary angioplasty implant and graft; Z79.01 Long term (current) use of anticoagulants; K80.00 Calculus of gallbladder with acute cholecystitis without obstruction; Z79.899 Other long term (current) drug therapy
CPT/HCPCS: 36415; 71046; 74177; 76705; 80048; 80053; 82150; 83690; 83735; 84484; 85025; 86328; 93005; 99284; G0378; Q9967

== ENCOUNTER → 2020-08-03 07:03 | Outpatient (CLI) | payer MEDICARE, SELFPAY ==
[2020-08-03 08:03] LABS: Basophils # 0.1 K/mm3 (0-0.2); Basophils % 1.1 % (0.1-2.0); Eosinophils # 0.1 K/mm3 (0.0-0.4); Eosinophils % 3.3 % (0.1-12.0); Hematocrit 44.6 % (42.0-52.0); Hemoglobin 14.5 g/dL (14.1-18.0); Lymphocytes # 1.1 K/mm3 (0.7-4.5); Lymphocytes % 24.9 % (10-50); Mean Corpuscular HGB Conc 32.6 g/dL (31.8-35.4); Mean Corpuscular Hemoglobin 28.7 pg (27.0-31.2); Mean Corpuscular Volume 87.9 fl (80-94); Mean Platelet Volume 7.8 fl (7.4-10.4); Monocytes # 0.4 K/mm3 (0.1-1.0); Monocytes % 9.8 % (1.7-9.3); Neutrophils # 2.7 K/mm3 (1.8-7.8); Neutrophils % 60.9 % (37.0-80.0); Platelet Count 241 K/mm3 (142-424); Red Blood Count 5.07 M/mm3 (4.60-6.20); Red Cell Distribution Width 14.6 % (11.5-17.5); White Blood Count 4.4 K/mm3 (4.8-10.8)
[2020-08-03 08:28] LABS: Chloride 103 mmol/L (98-107); Potassium 4.3 mmoL/L (3.5-5.1); Sodium 140 mmol/L (136-145)
[2020-08-03 08:31] LABS: Alanine Aminotransferase 21 U/L (12-78); Albumin Level 4.1 g/dl (3.5-5.0); Albumin/Globulin Ratio 1.5 (1.1-1.8); Alkaline Phosphatase 88 U/L (38-126); Anion Gap 11.3 mEq/L (5-15); Aspartate Amino Transferase 26 U/L (17-59); Bilirubin,Total 0.5 mg/dl (0.2-1.3); Blood Urea Nitrogen 13 mg/dl (9-20); Calcium 9.5 mg/dl (8.4-10.2); Carbon Dioxide 30 mmol/L (22.0-30.0); Estimated Glomerular Filt Rate 84 ml/min (>60); GFR (African American) 102 ML/MIN (>60); Globulin 2.8 g/dL (1.3-3.2); Glucose 117 mg/dl (74-100); Total Protein,Serum 6.9 g/dl (6.3-8.2)
[2020-08-03 09:10] LABS: Coronavirus 19 IgG Antibody Positive (Negative); Coronavirus 19 IgM Antibody Negative (Negative)
== END ==
PROVIDERS: Visit Provider Surgery
DX: K80.20 Calculus of gallbladder without cholecystitis without obstruction (principal); Z01.818 Encounter for other preprocedural examination
CPT/HCPCS: 36415; 80053; 85025; 86328

== ENCOUNTER 2020-08-05 06:01 | Day surgery (SDC) | payer MEDICARE, SELFPAY ==
[2020-07-31 14:30] VITALS: BMI 31.4
[2020-08-05] VITALS (14 sets, daily range): BP systolic 108–138; BP diastolic 56–91; PULSE 48–73; RESP 12–19; TEMP 36.1–43; O2SAT 91–97
[2020-08-05 06:37] LABS: POC Glucose,Bedside 111 (70-110)
--- NOTE | 2020-08-05 07:30 | HMH.ANESCL ---
[facility] Anesthesia Checklist - Structural Data Admitted From: Home Planned Operative Procedure/s: ankur wrene Consent for Planned Operative Procedure(s) Verified: Yes - Additional verifications Anesthesia Reactions: No Hx Blood Transfusions: No Blood Transfusion Reaction: No - Airway Assessment C-Spine Mobility Assessed: Yes TMJ Mobility Assessed: Yes Dentition: Poor Dentition - Neurological Assessment Level of Consciousness: Awake, Alert, Appropriate - Anesthesia Plan Anesthesia Risk discussed: Yes Anesthesia Plan: Verified ASA Class: II Anesthesia Type: General [facility] History I have reviewed the patient's past medical history: Yes Medical History: Reports:: Cancer, Carotid Stenosis, Congestive Heart Failure, Coronary Artery Disease, Cerebrovascular Accident, Diabetes Mellitus Type 2, Hyperlipidemia, Hypertension, Myocardial Infarction, Transient Ischemic Attacks (TIA) Denies:: Diabetes Mellitus Type 1, Internal Pacemaker, MRSA, Seizures *Have you ever received a pneumonia vaccine?: Yes *Have you received a flu vaccine this season?: No Other Medical History: Denies: Blood Transfusion Reaction Anesthesia experience/problems:: none Other Surgeries: Yes: No Previous Surgery, Cardiac Catheterization, Cardiac Surgery, Colonoscopy, Coronary Stent, Open Heart Surgery, Ureter Stent, Other. No: Pacemaker Amputation: No Fractures: Yes (wrist) - *Social History Last grade of school completed: 9th or 10th Smoking Status: Never smoker Tobacco Type: cigarettes #Yrs smoked (if former smoker): 15 Alcohol Intake: never Alcohol Intake Frequency:: other Substance Use Type: denies use *Occupational Status:: disabled Housing: house Household Members: none *Travel in the last 8 weeks: None Family Hx:: Coronary Artery Disease, Heart Attack, Stroke
--- NOTE | 2020-08-05 08:28 | P.OP_ITS ---
Date of procedure: 08/05/20 Pre-op Diagnosis:: Symptomatic gallstones Post-op Diagnosis:: Same Procedure performed:: Laparoscopic cholecystectomy Surgeon:: Kemal Villatoro MD GAS STATION OPERATOR:: Felice Barajas Anesthesia: GETA Estimated blood loss (mL): 20 Clinical Note:: Patient is a 69-year-old male. He had presented with epigastric pain and chest pain and was admitted on 07/29/2020. He underwent cardiac evaluation. He ruled out for myocardial infarction. Patient was noted to have some right upper quadrant tenderness. Attention was turned to his GI tract. He underwent gallbladder ultrasound which revealed findings of gallstones and polyp. At that time surgical consultation was obtained as an inpatient. Consideration was being given for possible cholecystectomy as an inpatient. However, the patient was on Plavix. He did undergo CT scan of the abdomen and pelvis which was unremarkable other than gallstones. Patient does describe some symptoms of occasional dysphagia. He was able to be managed as an outpatient and plan was made for discontinuation of Plavix and early outpatient cholecystectomy. He continues to have soreness . Operative findings:: He had appreciable amount of intra-abdominal fat. There was an appreciable amount of fatty infiltration around the neck of the gallbladder and trevin hepatis. Operative note:: Patient was taken to the operating room. He was given preoperative intravenous antibiotics. He was positioned in a supine position. In the operating room gen eral anesthesia was induced via endotracheal tube. Abdomen was prepped and draped in the standard surgical fashion. Subumbilical skin incision was made. While performing abdominal wall the Veress needle was inserted. CO2 pneumoperitoneum was achieved to 15 mmHg. 11 mm optical trocar was inserted at the umbilicus. Intraperitoneal contents were visualized. He was positioned in reverse Trendelenburg left side down. A couple of 5 mm trochars were inserted in the right upper abdomen. A 10 mm trocar was inserted in the epigastrium. Liver was elevated. There were some omental adhesions to the liver adjacent to the gallbladder and these were taken down using theodore ultrasonic harmonic michael. The gallbladder was grasped retracted anteriorly and superiorly over the dome of the liver. There was fatty infiltration around the gallbladder and trevin hepatis. Neck of the gallbladder was retracted anterolaterally. Blunt dissection was carried out the neck of the gallbladder. At the infundibulum there was unavoidable tear in the gallbladder. This was closed with Endoloop. Dissection was carried out isolating the cystic duct. The neck of the gallbladder gradually tapered to the cystic duct. Cystic duct was multiply clipped and sharply divided. Cystic artery was identified and carefully coagulated with Theodore ultrasonic harmonic michael and divided. Gallbladder was dissected free from the liver in a retrograde fashion using theodore ultrasonic harmonic michael. The gallbladder was placed within an Endo Catch retrieval device and removed from the peritoneal cavity via the umbilical trocar site which required some minor extension of the fascial incision for delivery. Gallbladder fossa was then thoroughly irrigated and aspirated until clear. There appeared to be good hemostasis. Trochars were removed and CO2 pneumoperitoneum was evacuated. Condition: stable Disposition: PACU Specimens:: Gallbladder and contents Complications:: None immediately apparent
--- NOTE | 2020-08-05 08:31 | HMH.ANESI ---
[facility] Anesthesia Record Part I Intake, IV Amount: 1,800 Estimated blood loss (mL): 0 Urine output (mL): 0 Blood Pressure: 129/74 SaO2: 92 Pulse Rate: 60 Respiratory Rate: 12 Temperature: 97.5 F Patient is:: Awake, Stable Stable to PACU at:: 08:30
--- NOTE | 2020-08-06 07:43 | P.PN_ITS ---
[facility] Anesthesia Record Part II Discharge Time: 09:00 Destination: [facility] PACU nurse assessment reviewed?: Yes Patient Condition:: Good Anesthesia Complications:: None Swallowing reflex intact?: Yes Cyanosis?: No Blood Pressure: 108/56 Pulse Rate: 52 Temperature: 98 F Mental Status: Alert & Oriented Pain level:: 0 Nausea and/or vomitting:: None Intake, IV Amount: 1,500
[2020-08-06 07:44] VITALS: BP 108/56; PULSE 52; TEMP 36.6
== END 2020-08-05 09:47 | disposition home or self-care (01) ==
LOC: OR 06:03
PROVIDERS: PCP Nurse Practitioner Family; Visit Provider Surgery
PROC: 0FT44ZZ Resection of Gallbladder, Percutaneous Endoscopic Approach (ICD-10-PCS; CPT 47562; principal; 2020-08-05 07:30)
DX: K80.80 Other cholelithiasis without obstruction (principal); K66.0 Peritoneal adhesions (postprocedural) (postinfection); K76.0 Fatty (change of) liver, not elsewhere classified; I50.9 Heart failure, unspecified; I11.0 Hypertensive heart disease with heart failure; E11.9 Type 2 diabetes mellitus without complications; I25.2 Old myocardial infarction; Z85.9 Personal history of malignant neoplasm, unspecified; I65.29 Occlusion and stenosis of unspecified carotid artery; E78.5 Hyperlipidemia, unspecified; Z86.73 Personal history of transient ischemic attack (TIA), and cerebral infarction without residual deficits; Z79.899 Other long term (current) drug therapy
CPT/HCPCS: 47562; 82962; 88304; 96374; J2405; J2710

== ENCOUNTER → 2020-10-14 14:42 | Outpatient (CLI) | payer MEDICARE, SELFPAY ==
[2020-10-14 15:59] LABS: Prostate Specific Ag Screen 4.3 ng/ml (0.0-4.0)
== END ==
PROVIDERS: Visit Provider Urology
DX: Z12.5 Encounter for screening for malignant neoplasm of prostate (principal)
CPT/HCPCS: 36415; G0103

== ENCOUNTER 2021-02-16 13:23 | Emergency (ER) | payer MEDICARE, SELFPAY ==
[2021-02-16 13:34] VITALS: BP 147/73; PULSE 73; RESP 18; TEMP 36.6; O2SAT 97; BMI 31.4
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
[2021-02-16 14:36] VITALS: BP 140/74; PULSE 79; RESP 16; TEMP 36.6
== END 2021-02-16 14:39 | disposition home or self-care (01) ==
PROVIDERS: Emergency Provider Nurse Practitioner Family; PCP Nurse Practitioner Family
DX: S40.011A Contusion of right shoulder, initial encounter (principal); W01.0XXA Fall on same level from slipping, tripping and stumbling without subsequent striking against object, initial encounter; Y92.89 Other specified places as the place of occurrence of the external cause; I10 Essential (primary) hypertension; E78.5 Hyperlipidemia, unspecified; E11.9 Type 2 diabetes mellitus without complications; I25.10 Atherosclerotic heart disease of native coronary artery without angina pectoris; I25.2 Old myocardial infarction; Z87.891 Personal history of nicotine dependence; Z86.73 Personal history of transient ischemic attack (TIA), and cerebral infarction without residual deficits
CPT/HCPCS: G0463; 73030; 96372; 99202

== ENCOUNTER 2021-04-29 19:09 | Emergency (ER) | payer MEDICARE, SELFPAY ==
[2021-04-29] VITALS (7 sets, daily range): BP systolic 132–162; BP diastolic 56–72; PULSE 51–64; RESP 18; TEMP 36.6; O2SAT 93–97; BMI 32.1
--- NOTE | 2021-04-29 19:25 | ECG_ITS ---
APPROVED REPORT Exam: Resting ECG HR:51 bpm ECG Measurements Heart Rate 51 AXES ND 204 P 53 QRSd 116 QRS 52 QT 446 T 22 QTc 411 Conclusion Sinus bradycardia Otherwise normal ECG Electronically signed by : Tuan Fry MD 04/30/2021 11:44:26
--- NOTE | 2021-04-29 19:25 | XR_ITS ---
PROCEDURE INFORMATION: Exam: XR Chest Exam date and time: 04/29/2021 7:25 PM Age: 70 years old Clinical indication: Other: Weakness TECHNIQUE: Imaging protocol: XR of the chest. Views: 2 views. COMPARISON: CR XR CHEST 2V 07/28/2020 8:30 PM FINDINGS: Lungs: Streaky basilar airspace opacities which are likely atelectatic. No consolidation. Pleural spaces: Unremarkable. No pleural effusion. No pneumothorax. Heart/Mediastinum: Unremarkable. No cardiomegaly. Diaphragm: Elevation of the right hemidiaphragm which appears chronic. Bones/joints: Right AC joint measures 13 mm. Coracoclavicular distance is 22 mm. IMPRESSION: No acute cardiopulmonary process. Right AC joint separation which is new from 2019.
[2021-04-29 19:32] LABS: Basophils # 0.1 K/mm3 (0-0.2); Basophils % 0.9 % (0.1-2.0); Eosinophils # 0.2 K/mm3 (0.0-0.4); Eosinophils % 2.7 % (0.1-12.0); Hematocrit 44.8 % (42.0-52.0); Hemoglobin 15.3 g/dL (14.1-18.0); Lymphocytes # 1.6 K/mm3 (0.7-4.5); Lymphocytes % 26.2 % (10-50); Mean Corpuscular HGB Conc 34.2 g/dL (31.8-35.4); Mean Corpuscular Hemoglobin 28.5 pg (27.0-31.2); Mean Corpuscular Volume 83.3 fl (80-94); Mean Platelet Volume 7.6 fl (7.4-10.4); Monocytes # 0.4 K/mm3 (0.1-1.0); Neutrophils # 3.8 K/mm3 (1.8-7.8); Neutrophils % 63.2 % (37.0-80.0); Platelet Count 265 K/mm3 (142-424); Red Blood Count 5.38 M/mm3 (4.60-6.20); Red Cell Distribution Width 14.6 % (11.5-17.5)
[2021-04-29 19:33] LABS: Coronavirus 19, PCR Not Detected (NotDetected); Influenza A, PCR Not Detected (NotDetected); Influenza B, PCR Not Detected (NotDetected)
[2021-04-29 19:43] LABS: Alanine Aminotransferase 23 U/L (12-78); Albumin Level 4.5 g/dl (3.5-5.0); Albumin/Globulin Ratio 1.4 (1.1-1.8); Alkaline Phosphatase 86 U/L (38-126); Anion Gap 9.7 mEq/L (5-15); Aspartate Amino Transferase 30 U/L (17-59); Bilirubin,Total 0.6 mg/dl (0.2-1.3); Blood Urea Nitrogen 16 mg/dl (9-20); Calcium 9.4 mg/dl (8.4-10.2); Carbon Dioxide 29 mmol/L (22.0-30.0); Chloride 105 mmol/L (98-107); Creatinine Clearance Estimated 104 mL/min (50-200); Estimated Glomerular Filt Rate 84 ml/min (>60); GFR (African American) 102 ML/MIN (>60); Globulin 3.2 g/dL (1.3-3.2); Glucose 103 mg/dl (74-100); Potassium 3.7 mmoL/L (3.5-5.1); Sodium 140 mmol/L (136-145); Total Protein,Serum 7.7 g/dl (6.3-8.2)
[2021-04-29 19:49] LABS: C-Reactive Protein 0.4 mg/L (0-4)
[2021-04-29 19:58] LABS: Troponin I < 0.01 ng/ml (0.00-0.034)
[2021-04-29 20:01] LABS: Erythrocyte Sedimentation Rate 18 mm/hr (0-20)
[2021-04-29 20:02] LABS: Procalcitonin 0.034 ng/mL (0.0-2.0)
--- NOTE | 2021-04-29 22:26 | HMH.EDNVD ---
ED Disposition Clinical Impression: Nausea in adult patient Disposition: Home, Self-Care Condition on Discharge: Good Instructions: DI for Nausea -- Adult Additional Instructions: call pcp in am Referrals: Norma Colin [Primary Care Provider] - - Critical Care Critical Care Time: No Attestation: On 04/29/21, the high probability of a clinically significant, sudden or life threatening deterioration of the following system(s) required my full and direct attention, intervention and personal management. The time I documented below is in addition to time spent performing reported procedures but includes the following listed in this critical care notation. Medical Decision Making - Medical Records Medical records reviewed: Yes: I reviewed the patient's medical records. - Aurelio Inquiry Pt receiving controlled substance: No Vital Signs: 04/29/21 19:11 04/29/21 20:01 04/29/21 20:30 Temperature 97.8 F Temperature Source Oral Pulse Rate 54 L 53 L Pulse Rate [Right] 56 L Respiratory Rate 18 Blood Pressure 132/56 L 143/65 H Blood Pressure [Right Arm] 162/72 H Blood Pressure Mean 94 89 Blood Pressure Mean [Right Arm] 102 02 Sat by Pulse Oximetry 96 96 95 04/29/21 21:01 Temperature Temperature Source Pulse Rate 51 L Pulse Rate [Right] Respiratory Rate Blood Pressure 143/60 H Blood Pressure [Right Arm] Blood Pressure Mean 87 Blood Pressure Mean [Right Arm] 02 Sat by Pulse Oximetry 95 - Lab Data Lab results reviewed: Yes: I reviewed the patient's lab results. Lab Results 04/29/21 19:20: WBC 6.0, RBC 5.38, Hgb 15.3, Hct 44.8, MCV 83.3, MCH 28.5, MCHC 34.2, RDW 14.6, Plt Count 265, MPV 7.6, Neut % (Auto) 63.2, Lymph % (Auto) 26.2, [place] % (Auto) 7.0, Eos % (Auto) 2.7, Baso % (Auto) 0.9, Neut # (Auto) 3.8, Lymph # (Auto) 1.6, [place]wey # (Auto) 0.4, Eos # (Auto) 0.2, Baso # (Auto) 0.1 04/29/21 19:20: Sodium 140, Potassium 3.7, Chloride 105, Carbon Dioxide 29, Anion Gap 9.7, BUN 16, Creatinine 0.90, Estimated Creat Clear 104, Estimated GFR 84, Est GFR ( Amer) 102, Glucose 103 H, Calcium 9.4, Total Bilirubin 0.6, AST 30, ALT 23, Alkaline Phosphatase 86, Troponin I < 0.01, C-Reactive Protein 0.4, Total Protein 7.7, Albumin 4.5, Globulin 3.2, Albumin/Globulin Ratio 1.4 04/29/21 19:20: ESR 18 04/29/21 19:20: SARS-CoV-2 (PCR) Not detected, Influenza A Untype (PCR) Not detected, Influenza Type B (PCR) Not detected 04/29/21 19:20: Procalcitonin 0.034 04/29/21 22:35: Troponin I < 0.01 04/29/21 22:35: Amylase 54, Lipase 176 04/29/21 22:36: Urine Color Straw, Urine Appearance Clear, Urine pH 6.0, Ur Specific [place] 1.010, Urine Protein Negative, Urine Glucose (UA) Negative, Urine Ketones Negative, Urine Blood Trace-i, Urine Nitrate Negative, Urine Bilirubin Negative, Urine Urobilinogen 2.0, Ur Leukocyte Esterase Negative, Urine RBC Occasional, Urine WBC Occasional, Ur Squamous Epith Cells None, Urine Bacteria Trace Result diagrams: 04/29/21 19:20 04/29/21 19:20 Orders (Tests/Meds): ED MEDICATIONS Generic Name Dose Route Start Last Admin Trade Name Freq PRN Reason Stop Dose Admin Sodium Chloride 1,000 mls @ 999 mls/hr 04/29/21 20:00 04/29/21 20:01 Sod Chlor 0.9% 1000ml Bag IV 04/29/21 21:00 999 mls/hr .Q1H1M ADEN Administration Discontinued Medications Generic Name Dose Route Start Last Admin Trade Name Freq PRN Reason Stop Dose Admin Iopamidol 75 ml 04/29/21 23:17 04/29/21 23:18 Iopamidol-370 (76%);100ml Bottle IV 04/29/21 23:18 75 ml ONCE ONE Administration Ondansetron HCl 4 mg 04/29/21 20:00 04/29/21 20:01 Ondansetron 4mg/2ml Vial IV 04/29/21 20:01 4 mg ONCE ONE Administration Sodium Chloride 10 ml 04/29/21 23:17 04/29/21 23:17 Sodium Chloride 0.9% 10ml Syr (Rad Only) IV 04/29/21 23:18 10 ml ONCE ONE Administration ORDERS Category Date Time Status Troponin I Q3H Lab 04/30/21 01:30 Ordered - Radiology Data #1 Imag
[2021-04-29 22:31] LABS: Microscopic, Urine URINE MICROSCOPIC (MICROSCOPIC)
--- NOTE | 2021-04-29 22:31 | CT_ITS ---
PROCEDURE INFORMATION: Exam: CT Abdomen And Pelvis With Contrast Exam date and time: 04/29/2021 10:31 PM Age: 70 years old Clinical indication: Nausea; Prior surgery; Surgery date: 6+ months; Surgery type: Gallbladder, testicular cancer; Additional info: N/v/d TECHNIQUE: Imaging protocol: Computed tomography of the abdomen and pelvis with contrast. Radiation optimization: All CT scans at this facility use at least one of these dose optimization techniques: automated exposure control; mA and/or kV adjustment per patient size (includes targeted exams where dose is matched to clinical indication); or iterative reconstruction. Contrast material: ISOVUE; Contrast volume: 75 ml; Contrast route: IV; COMPARISON: CT ABDOMEN PELVIS W CON 07/30/2020 2:07 PM FINDINGS: Liver: Normal. No mass. Gallbladder and bile ducts: Post cholecystectomy change. Pancreas: Normal enhancement. No ductal dilation. Spleen: No splenomegaly. Adrenal glands: No mass. Kidneys and ureters: Renal cysts measuring up to 2 cm. No hydronephrosis. Stomach and bowel: Diverticulosis coli without evidence for diverticulitis. Appendix: No evidence of appendicitis. Intraperitoneal space: No free air. No significant fluid collection. Vasculature: Coronary artery calcifications. Calcified atherosclerosis. No aneurysm. Lymph nodes: No enlarged lymph nodes. Urinary bladder: Mild urinary bladder wall thickening measuring 8 mm. Reproductive: Prostate appears enlarged measuring 5.8 cm in transverse dimension. 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 Soft tissues: No soft tissue swelling. IMPRESSION: 1. Mild urinary bladder wall thickening measuring 8 mm which is similar to prior examination. Correlation with UA is recommended. Differential would include recurrent cystitis, muscular hypertrophy, or mucosal mass. 2. Prostate appears enlarged measuring 5.8 cm in transverse dimension. 3. Diverticulosis coli without evidence for diverticulitis. 4. 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
[2021-04-29 22:44] LABS: Appearance,Urine CLEAR (Clear); Bilirubin,Urine Negative (Negative); Blood, Urine TRACE-I (Negative); Color,Urine STRAW (Yellow); Glucose,Urine (UA) Negative (Negative); Ketones,Urine Negative (Negative); Leukocyte Esterase,Urine Negative (Negative); Nitrate,Urine Negative (Negative); Protein,Urine Negative (Negative)
[2021-04-29 22:50] LABS: Bacteria,Urine Trace /lpf; RBC,Urine Occasional #/hpf (0-3); WBC,Urine Occasional #/hpf (0-3)
[2021-04-29 22:53] LABS: Amylase 54 U/L (30-110); Lipase 176 U/L (23-300)
[2021-04-29 23:17] LABS: Troponin I < 0.01 ng/ml (0.00-0.034)
[2021-04-30 00:12] VITALS: BP 155/65; PULSE 58; RESP 18; TEMP 36.6; O2SAT 95
== END 2021-04-30 00:14 | disposition home or self-care (01) ==
PROVIDERS: Emergency Medicine; Emergency Provider Emergency Medicine; PCP Nurse Practitioner Family
DX: Z20.822 Contact with and (suspected) exposure to COVID-19 (principal); R11.2 Nausea with vomiting, unspecified; E11.9 Type 2 diabetes mellitus without complications; I10 Essential (primary) hypertension; I50.9 Heart failure, unspecified; I25.2 Old myocardial infarction; Z86.73 Personal history of transient ischemic attack (TIA), and cerebral infarction without residual deficits
CPT/HCPCS: 36415; 71046; 74177; 80053; 81001; 82150; 83690; 84145; 84484; 85025; 85651; 86140; 93005; 96365; 96375; 99283; J2405; Q9967; U0003

== ENCOUNTER 2021-07-15 09:33 | Emergency (ER) | payer MEDICARE, SELFPAY ==
[2021-07-15 09:57] VITALS: BP 151/68; PULSE 58; RESP 14; TEMP 36.5; O2SAT 97; BMI 30.9
--- NOTE | 2021-07-15 11:33 | HMH.EDUTC ---
[facility] [place] Clinical Impression: Laceration of right hand Qualifiers: Encounter type: initial encounter Foreign body presence: without foreign body Qualified Code(s): S61.411A - Laceration without foreign body of right hand, initial encounter Disposition: Home, Self-Care Condition on Discharge: Good Instructions: How to Care for a Laceration After Repair, DI for Laceration Repair -- Simple Additional Instructions: Keep the wound clean and dry. Keep a dressing on it if you are going to be getting it dirty. Watch the for signs of infection, such as redness, swelling, drainage, fever. etc. take tylenol or ibuprofen for pain. Follow up with your regular doctor. Return in 10 to 12 days to have the sutures removed. GO TO THE ER FOR ANY WORSENING SYMPTOMS OR CONCERNS. Keep you hand elevated as much time as possible today. We don't want it to swell because that could interfere with blood flow to the rest of the finger. Watch your finger and finger nail. If you have any doubt about swelling and it interfering with blood flow, please return to the ER at once. Make sure you finger nail is pink and if you squeeze the nail it should turn back pink immediately. If you have any doubt about it, please return immediately. Prescriptions: cephALEXin [cephALEXin 500mg capsule] 500 mg PO Q6H 10 Days #40 cap Transmission Status: Received by [employer] Referrals: Norma Colin [Primary Care Provider] - Time of Disposition: 11:40 Medical Decision Making - Medical Records Medical records reviewed: No: I reviewed the patient's medical records. - Aurelio Inquiry Pt receiving controlled substance: No Vital Signs: 07/15/21 09:57 07/15/21 11:38 Temperature 97.7 F 97.9 F Temperature Source Temporal Artery Scan Pulse Rate 58 L Pulse Rate [Left] 58 L Respiratory Rate 14 14 Blood Pressure 151/68 H Blood Pressure [Right Arm] 151/68 H Blood Pressure Mean [Right Arm] 95 02 Sat by Pulse Oximetry 97 Orders (Tests/Meds): ED MEDICATIONS Discontinued Medications Generic Name Dose Route Start Last Admin Trade Name Freq PRN Reason Stop Dose Admin Lidocaine HCl 5 ml 07/15/21 10:33 07/15/21 10:42 Lidocaine 1% 5ml Pf Vial IJ 07/15/21 10:34 5 ml ONCE ONE Administration Tetanus/Reduced Diphtheria/Acell Pertussis 0.5 ml 07/15/21 10:33 07/15/21 10:41 Tet/Diphth/Pert-Adult 0.5ml Syringe IM 07/15/21 10:34 0.5 ml .ONCE ONE Administration [facility] [place] - General Stated complaint: AO finger laceration Time Seen by Provider: 07/15/21 10:15 Mode of Arrival: Ambulatory Source of Information: Patient Limitations: No Limitations Description of Symptoms (Recalled from Triage Doc. by RN): pt has a lac on the inside of his second knuckle of the R little finger. pt was cut by a piece of metal. pt is not UTD on his tetnus. HEENT Symptoms (Recalled from RN notes): No Resp Symptoms (Recalled from RN notes): No Skin Symptoms (Recalled from RN notes): Yes (lac to second knuckle of the R little finger) MS Symptoms (Recalled from RN notes): No Functional Status (Recalled from RN notes): na - History of Present Illness Provider Complaint: He states that about 30 minutes ago he got his right 5th finger pinched in the latch that raises the back seat of his truck up and down. It pinched the skin of the medial aspect of the finger and he has a 3 cm linear laceration. He denies any difficulty moving the finger. He denies that the actual finger or bone were pinched or crushed in the injury. He can bend and straighten his finger well. He denies any numbness or tingling of the finger. - Related Data Home Medications Medication Instructions Recorded Confirmed atorvastatin 40 mg tablet 40 mg PO HS 03/30/19 04/29/21 lisinopril 20 mg tablet 20 mg PO DAILY 03/30/19 04/29/21 aspirin 81 mg tablet,delayed 81 mg PO DAILY 09/21/19 04/29/21 release carvedilol 12.5 mg tablet 12.5 mg PO DAILY tab 09/21
[2021-07-15 11:38] VITALS: BP 151/68; PULSE 58; RESP 14; TEMP 36.6
== END 2021-07-15 11:57 | disposition home or self-care (01) ==
PROVIDERS: Emergency Provider Nurse Practitioner Family; PCP Nurse Practitioner Family
DX: S61.411A Laceration without foreign body of right hand, initial encounter (principal); S61.216A Laceration without foreign body of right little finger without damage to nail, initial encounter; W26.9XXA Contact with unspecified sharp object(s), initial encounter; Y92.89 Other specified places as the place of occurrence of the external cause; Z23 Encounter for immunization; I10 Essential (primary) hypertension; E78.5 Hyperlipidemia, unspecified; Z87.891 Personal history of nicotine dependence
CPT/HCPCS: 12002; G0463; 90471; 90715; 96372; 99202

== ENCOUNTER → 2021-08-28 12:02 | Outpatient (CLI) | payer MEDICARE, SELFPAY ==
--- NOTE | 2021-08-28 12:05 | XR_ITS ---
PROCEDURE: XR KNEE LT 4V CLINICAL INDICATION: left knee pain; weightbearing COMPARISON: No exams were available for comparison FINDINGS: Moderate osteoarthritic changes are present at the patellofemoral joint and medial compartment with mild osteoarthritis of the lateral compartment. There is four mm lateral translation of the tibia. No fracture or dislocation. No lytic or blastic change. Small suprapatellar effusion suspected. There is generalized vascular calcification. IMPRESSION: Moderate osteoarthritic changes as described above. Dictated by: Richie Murrell MD 08/28/2021 12:36 Richie Murrell MD in OV 08/28/2021 12:36
--- NOTE | 2021-08-28 12:05 | XR_ITS ---
PROCEDURE: XR KNEE RT 4V CLINICAL INDICATION: right knee pain; weightbearing COMPARISON: No exams were available for comparison FINDINGS: There are moderate osteoarthritic changes the medial compartment and patellofemoral joint with mild osteoarthritis of the lateral compartment. There is 4-5 mm lateral translation of the tibia. Suprapatellar effusion suspected. There is generalized vascular calcification. IMPRESSION: Moderate osteoarthritic change Dictated by: Richie Murrell MD 08/28/2021 12:37 Richie Murrell MD in [place] 08/28/2021 12:37
== END ==
PROVIDERS: PCP Nurse Practitioner Family; Visit Provider Orthopaedic Surgery
DX: M25.562 Pain in left knee (principal); M25.561 Pain in right knee
CPT/HCPCS: 73564

== ENCOUNTER → 2021-12-16 09:00 | Outpatient (CLI) | payer MEDICARE, SELFPAY ==
--- NOTE | 2021-12-16 09:02 | CA_ITS ---
APPROVED REPORT EXAM: Comprehensive 2D, Doppler, and color-flow Echocardiogram Reconditioning Associate: Arlene Hein RT(R) Ht: 5 ft 11 in Wt: 240lbs BSA: 2.28 BP: 139/63 mmHg Indications: HTN, SOB, hyperlipidemia, preop clearance for knee surgery, hx NM, CAD. 2D Dimensions LVOT 2.00 cm (M/F) 1.5-2.5 LVEF (Bowman's) 51.30 % M: 52 - 72 LV Volume 149.00 mL M: 62 - 150 LV Volume Index 65.35 mL/m2 M: 34 - 74 LA Volume 54.00 mL LA Volume Index 23.68 mL/m2 (M/F) 16-34 M-Mode Dimensions RVDd 3.52 cm (0.9-2.6) LA Diam 4.77 cm (1.9-4.0) LVDd 5.82 cm (3.5-5.7) Ao Diam 3.49 cm (2.0-3.7) LVDs 4.33 cm (3.5-5.7) IVSd 1.40 cm (0.6-1.1) PWd 1.27 cm (0.6-1.1) EF (Teich) 49.70% FS 25.60% EDV (Teich) 167.90 mL ESV (Teich) 84.40 mL LV Diastology E Decel Time 190.00 (160-240 msec) E/A Ratio 0.9 MED E' 16.80 (< 7 cm/sec) E'/MED E' Ratio 4.42 (>14) LAT E' 10.50 (<10 cm/sec) E/LAT E' Ratio 7.07 (>14) Mitral Valve MV E Max Bao. 74.00 (40-130 cm/s) MV A Velocity 78.00 (40-130 cm/s) E/A Ratio 0.95 MV Decel. Time 190.00 (160-240 ms) MV PHT 56.00 ms Left Ventricle Left atrium is mildly enlarged, left ventricle is normal size, mild concentric left ventricular hypertrophy, visually estimated ejection fraction 55% with no regional wall motion abnormality. Diastolic parameters are inconclusive. Right Ventricle Right atrium and right ventricular normal size and contractility. Aortic Valve Aortic valve is minimally thickened and fibrosed, there is no aortic stenosis or aortic insufficiency. Mitral Valve Mitral valve grossly normal, there is trace mitral regurgitation. Tricuspid Valve Tricuspid valve is grossly normal, there is trace tricuspid regurgitation, tricuspid regurgitation jet velocity is inadequate for calculation of the right ventricular systolic pressure. Pulmonic Valve Pulmonic valve is poorly visualized. Great Vessels Aortic root is normal size. Inferior vena cava is poorly visualized. Pericardium No significant pericardial effusion noted. Conclusion 1. Normal left ventricular size, mild concentric left ventricular hypertrophy, estimated ejection fraction 55% with no regional wall motion abnormality, diastolic parameters are inconclusive. 2. Trace mitral and tricuspid regurgitation. 3. No significant pericardial effusion. 4. Inferior vena cava is poorly visualized. Electronically signed by : Jose F Blanton MD 12/16/2021 20:26:32
== END ==
PROVIDERS: PCP Nurse Practitioner Family; Visit Provider Physician Assistant
DX: E78.2 Mixed hyperlipidemia (principal); I10 Essential (primary) hypertension; I25.10 Atherosclerotic heart disease of native coronary artery without angina pectoris; I25.2 Old myocardial infarction; R06.02 Shortness of breath; Z01.810 Encounter for preprocedural cardiovascular examination; Z95.5 Presence of coronary angioplasty implant and graft
CPT/HCPCS: 93306

== ENCOUNTER 2022-01-03 04:12 | Inpatient (IN) | payer MEDICARE, SELFPAY ==
[2022-01-03] VITALS (55 sets, daily range): BP systolic 115–158; BP diastolic 39–87; PULSE 78–115; RESP 16–26; TEMP 36.4–37.2; O2SAT 93–98; BMI 33.5; BMI 32.0
--- NOTE | 2022-01-03 04:09 | ECG_ITS ---
APPROVED REPORT Exam: Resting ECG HR:90 bpm ECG Measurements Heart Rate 90 AXES DE 190 P 50 QRSd 110 QRS 37 QT 360 T 18 QTc 408 Conclusion SINUS RHYTHM MODERATE ST DEPRESSION [0.05+ mV ST DEPRESSION] ABNORMAL ECG UNCONFIRMED REPORT Electronically signed by : Tuna Fry MD 01/03/2022 12:05:37
--- NOTE | 2022-01-03 04:14 | XR_ITS ---
PROCEDURE INFORMATION: Exam: XR Chest Exam date and time: 01/03/2022 5:14 AM Age: 71 years old Clinical indication: Sternal or substernal pain; Prior surgery; Surgery date: 6+ months; Surgery type: Cardiac stents; Additional info: Cp, SOB, left knee surgery December 23, 2021 TECHNIQUE: Imaging protocol: XR of the chest. Views: 1 view. COMPARISON: CR XR CHEST 2V 04/29/2021 7:31 PM FINDINGS: Lungs: No focal airspace disease. Pleural spaces: Unremarkable. No pleural effusion. No pneumothorax. Heart/Mediastinum: Cardiomediastinal silhouette is within normal limits. Bones/joints: Unremarkable. IMPRESSION: No acute cardiopulmonary abnormality.
--- NOTE | 2022-01-03 04:21 | CT_ITS ---
PROCEDURE INFORMATION: Exam: CTA Chest With Contrast Exam date and time: 01/03/2022 5:28 AM Age: 71 years old Clinical indication: Shortness of breath; Additional info: SOA, chest pain, PT had left knee surgery December 23, 2021. RO pe TECHNIQUE: Imaging protocol: Computed tomographic angiography of the chest with contrast. 3D rendering (Not supervised by radiologist): MIP and/or 3D reconstructed images were created by the technologist. Radiation optimization: All CT scans at this facility use at least one of these dose optimization techniques: automated exposure control; mA and/or kV adjustment per patient size (includes targeted exams where dose is matched to clinical indication); or iterative reconstruction. Contrast material: ISOVUE 370; Contrast volume: 70 ml; Contrast route: INTRAVENOUS (IV); COMPARISON: CR XR CHEST PORTABLE 01/03/2022 5:14 AM FINDINGS: Pulmonary arteries: Normal. No pulmonary emboli. Aorta: Unremarkable. No aortic aneurysm. No aortic dissection. Lungs: Unremarkable. No consolidation. No masses. Pleural spaces: Unremarkable. No pneumothorax. No pleural effusion. Heart: Moderate coronary artery calcification. Mild cardiomegaly. Lymph nodes: Unremarkable. No enlarged lymph nodes. Gallbladder and bile ducts: Cholecystectomy. Bones/joints: Unremarkable. No acute fracture. Soft tissues: Unremarkable. IMPRESSION: No pulmonary emboli or other acute cardiopulmonary pathology identified.
--- NOTE | 2022-01-03 04:21 | XR_ITS ---
PROCEDURE INFORMATION: Exam: XR Left Hip Exam date and time: 01/03/2022 5:11 AM Age: 71 years old Clinical indication: Hip pain; Left hip TECHNIQUE: Imaging protocol: XR Left hip. Views: 2 or 3 views hip with pelvis when performed. COMPARISON: CT ABDOMEN PELVIS W CON 04/29/2021 10:52 PM FINDINGS: Bones/joints: No acute fracture or malalignment. Mild degenerative changes of the hips bilaterally. Soft tissues: Unremarkable. IMPRESSION: No acute fracture or malalignment.
--- NOTE | 2022-01-03 04:25 | PC.NURSE ---
PT REPORTS PRESSURE IMPROVED AFTER NITRO SL ADMINISTRATION.
[2022-01-03 04:32] LABS: Basophils # 0.1 K/mm3 (0-0.2); Basophils % 0.7 % (0.1-2.0); Eosinophils # 0.4 K/mm3 (0.0-0.4); Lymphocytes # 1.7 K/mm3 (0.7-4.5); Monocytes # 0.5 K/mm3 (0.1-1.0)
[2022-01-03 04:41] LABS: Lymphocytes % 16.9 % (10-50); Mean Corpuscular HGB Conc 31.7 g/dL (31.8-35.4); Mean Corpuscular Hemoglobin 29.3 pg (27.0-31.2); Mean Corpuscular Volume 92.2 fl (80-94); Mean Platelet Volume 8.9 fl (7.4-10.4); Neutrophils # 7.3 K/mm3 (1.8-7.8); Neutrophils % 73.4 % (37.0-80.0); Platelet Count 398 K/mm3 (142-424); Red Blood Count 2.24 M/mm3 (4.60-6.20); Red Cell Distribution Width 16.9 % (11.5-17.5)
[2022-01-03 04:44] LABS: Hemoglobin 6.6 g/dL (14.1-18.0)
[2022-01-03 04:45] LABS: Hematocrit 20.7 % (42.0-52.0)
--- NOTE | 2022-01-03 04:46 | PC.NURSE ---
notified veronica of critical hgb6.6 and hct 20.7
[2022-01-03 04:57] LABS: Alanine Aminotransferase 34 U/L (12-78); Albumin Level 3.2 g/dl (3.5-5.0); Alkaline Phosphatase 66 U/L (38-126); Anion Gap 7.6 mEq/L (5-15); Aspartate Amino Transferase 34 U/L (17-59); Bilirubin,Direct 0.1 mg/dl (0.0-0.4); Bilirubin,Indirect 0.5 mg/dL (0.0-0.9); Bilirubin,Total 0.6 mg/dl (0.2-1.3); Bilirubin,Unconjugated 0.5 mg/dL (0.0-1.1); Blood Urea Nitrogen 27 mg/dl (9-20); Calcium 8.4 mg/dl (8.4-10.2); Carbon Dioxide 25 mmol/L (22.0-30.0); Chloride 108 mmol/L (98-107); Creatinine Clearance Estimated 107 mL/min (50-200); Estimated Glomerular Filt Rate 112 ml/min (>60); GFR (African American) 135 ML/MIN (>60); Glucose 181 mg/dl (74-100); Potassium 3.6 mmoL/L (3.5-5.1); Sodium 137 mmol/L (136-145); Total Protein,Serum 5.5 g/dl (6.3-8.2)
[2022-01-03 05:02] LABS: C-Reactive Protein 11.1 mg/L (0-4)
[2022-01-03 05:08] LABS: NT Pro Brain Natriuretic Pep. 128 pg/mL (0-125)
[2022-01-03 05:16] LABS: Procalcitonin 0.122 ng/mL (0.0-2.0)
[2022-01-03 05:21] LABS: Troponin I < 0.01 ng/ml (0.00-0.034)
[2022-01-03 05:22] LABS: Erythrocyte Sedimentation Rate > 140 mm/hr (0-20)
[2022-01-03 05:28] LABS: Coronavirus 19, PCR Not Detected (NotDetected); Influenza A, PCR Not Detected (NotDetected); Influenza B, PCR Not Detected (NotDetected)
--- NOTE | 2022-01-03 06:10 | PC.NURSE ---
PT REPORTS THAT PAIN IS GETTING BETTER. FAMILY REMAINS AT BEDSIDE. WCM.
--- NOTE | 2022-01-03 06:57 | HMH.EDCP ---
ED Disposition Clinical Impression: Unstable angina pectoris, Blood loss anemia Disposition: Admitted As Inpatient Condition on Discharge: Good - Critical Care Critical Care Time: No Attestation: On 01/03/22, the high probability of a clinically significant, sudden or life threatening deterioration of the following system(s) required my full and direct attention, intervention and personal management. The time I documented below is in addition to time spent performing reported procedures but includes the following listed in this critical care notation. Medical Decision Making - Medical Records Medical records reviewed: Yes: I reviewed the patient's medical records. - Aurelio Inquiry Pt receiving controlled substance: No Vital Signs: 01/03/22 04:13 01/03/22 04:47 01/03/22 05:10 Temperature 98.4 F Temperature Source Oral Pulse Rate 86 87 Pulse Rate [Left Radial] 93 H Respiratory Rate 21 26 H Blood Pressure 137/63 Blood Pressure [Right Arm] 147/74 H Blood Pressure Mean 77 Blood Pressure Mean [Right Arm] 98 Blood Pressure Source [Right Arm] Automatic Cuff Blood Pressure Position [Right Arm] Sitting 02 Sat by Pulse Oximetry 95 94 L 96 Oxygen Delivery Method Room Air Nasal Cannula Oxygen Flow Rate (LPM) 2 2 01/03/22 07:00 Temperature Temperature Source Pulse Rate 91 H Pulse Rate [Left Radial] Respiratory Rate 20 Blood Pressure 150/67 H Blood Pressure [Right Arm] Blood Pressure Mean 94 Blood Pressure Mean [Right Arm] Blood Pressure Source [Right Arm] Blood Pressure Position [Right Arm] 02 Sat by Pulse Oximetry 98 Oxygen Delivery Method Oxygen Flow Rate (LPM) - Lab Data Lab results reviewed: Yes: I reviewed the patient's lab results. Lab Results 01/03/22 04:25: WBC 10.0, RBC 2.24 L, Hgb 6.6 L*, Hct 20.7 L*, MCV 92.2, MCH 29.3, MCHC 31.7 L, RDW 16.9, Plt Count 398, MPV 8.9, Neut % (Auto) 73.4, Lymph % (Auto) 16.9, [place] % (Auto) 5.0, Eos % (Auto) 4.0, Baso % (Auto) 0.7, Neut # (Auto) 7.3, Lymph # (Auto) 1.7, [place] # (Auto) 0.5, Eos # (Auto) 0.4, Baso # (Auto) 0.1, ESR > 140 H 01/03/22 04:25: Sodium 137, Potassium 3.6, Chloride 108 H, Carbon Dioxide 25, Anion Gap 7.6, BUN 27 H, Creatinine 0.70, Estimated Creat Clear 107, Estimated GFR 112, Est GFR ( Amer) 135, Glucose 181 H, Calcium 8.4, Total Bilirubin 0.6, Direct Bilirubin 0.1, Conjugated Bilirubin 0.0, Indirect Bilirubin 0.5, Unconjugated Bilirubin 0.5, AST 34, ALT 34, Alkaline Phosphatase 66, Troponin I < 0.01, C-Reactive Protein 11.1 H, Total Protein 5.5 L D, Albumin 3.2 L, Procalcitonin 0.122 01/03/22 04:25: NT-Pro-B Natriuret Pep 128 H 01/03/22 04:25: Blood Type Confirm A Positive 01/03/22 05:00: Blood Type A Positive, Antibody Screen Negative, Crossmatch (AHG) See Detail 01/03/22 05:14: SARS-CoV-2 (PCR) Not detected, Influenza A Untype (PCR) Not detected, Influenza Type B (PCR) Not detected 01/03/22 07:10: Stool Occult Blood Positive A 01/03/22 07:30: Troponin I < 0.01 Result diagrams: 01/03/22 04:25 01/03/22 04:25 Orders (Tests/Meds): ED MEDICATIONS Generic Name Dose Route Start Last Admin Trade Name Freq PRN Reason Stop Dose Admin Lactated Ringer's 1,000 mls @ 100 mls/hr 01/03/22 05:30 01/03/22 05:38 Lactated Ringer's 1000 Ml Bag IV 02/02/22 05:29 100 mls/hr .Q10H ADEN Administration Sodium Chloride 250 mls @ 25 mls/hr 01/03/22 07:00 Sod Chlor 0.9% 250ml Bag IV 01/04/22 06:59 .Q10H ADEN Discontinued Medications Generic Name Dose Route Start Last Admin Trade Name Freq PRN Reason Stop Dose Admin Albuterol/Ipratropium 3 ml 01/03/22 04:40 01/03/22 04:46 Ipratropium/Albuterol 3 Ml Neb IH 01/03/22 04:41 3 ml ONCE ONE Administration Iopamidol 70 ml 01/03/22 05:39 01/03/22 05:40 Iopamidol-370 (76%);100ml Bottle IV 01/03/22 05:40 70 ml ONCE ONE Administration Morphine Sulfate 4 mg 01/03/22 05:56 01/03/22 05:58 Morphine 4mg/Ml Syringe IV 01/03/22 05:57
[2022-01-03 07:22] LABS: Occult Blood,Stool Positive (Negative)
[2022-01-03 08:04] LABS: Troponin I < 0.01 ng/ml (0.00-0.034)
--- NOTE | 2022-01-03 08:09 | PC.NURSE ---
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 Nurse notified.
--- NOTE | 2022-01-03 08:27 | PC.NURSE ---
due to pt volume in ed called casting house worker regarding picking up blood in blood bank, was told to contact ob nurse to get blood and transfuse
--- NOTE | 2022-01-03 10:54 | PC.NURSE ---
1025 detailed report given to cheryl arcos rn
[2022-01-03 11:36] LABS: Troponin I < 0.01 ng/ml (0.00-0.034)
--- NOTE | 2022-01-03 12:50 | HMH.HP ---
*Admission Date: 01/03/22 *Chief complaint: near syncope *History of present illness: Mr. De Jesus is a 71-year-old white male with a history of heart disease, hypertension, hyperlipidemia, and diet-controlled diabetes who has recently undergone left TKA. He presented to the ER early this morning after a near syncopal episode at home. He states he was walking through his house when he became lightheaded, diaphoretic, short of breath, nauseous, and had some chest pain. He did not lose consciousness. Because of his history of heart disease, he thought he was having a heart attack and presented to the ER. He was worked up in the ER and his EKG and enzymes were negative. He also had a CTA of the chest that was negative for PE. Laboratory data was remarkable for a hemoglobin of 6.6 and stool was positive for occult blood. He denies abdominal pain, diarrhea, constipation, or hematochezia. He states he had a dark stool 2 days ago. He has no history of ulcer disease. He has had a previous cholecystectomy. He has had a normal colonoscopy in the past but not sure when his last scope was. He has been admitted for blood transfusion and further work-up of his anemia. [facility] History Medical History: Reports:: Arrhythmia, Cancer (testicular), Congestive Heart Failure, Coronary Artery Disease, Diabetes Mellitus Type 2 (diet controlled), Hyperlipidemia, Hypertension, Myocardial Infarction, Transient Ischemic Attacks (TIA) Denies:: Internal Pacemaker, MRSA, Seizures *Have you ever received a pneumonia vaccine?: Yes *Have you received a flu vaccine this season?: Yes Other Medical History: Denies: Anemia, Blood Transfusion Reaction Laterality Cases: Left: Total Knee Replacement Other Surgeries: Yes: Cardiac Catheterization, Cardiac Surgery, Cholecystectomy, Colonoscopy, Coronary Stent, Other. No: Pacemaker Amputation: No Fractures: Yes (wrist) - *Social History Smoking Status: Former smoker Tobacco Type: cigarettes #Yrs smoked (if former smoker): 15 Alcohol Intake: never Alcohol Intake Frequency:: other Substance Use Type: denies use *Occupational Status:: retired Housing: house Household Members: none *Travel in the last 8 weeks: None Family Hx:: Coronary Artery Disease, Heart Attack, Stroke Review of Systems - Constitutional Reports anorexia, Reports chills, Denies fever(s) - Eyes Reports double vision, Denies change in vision - ENT Reports dizziness, Denies abnormal hearing, Denies dry mouth, Denies nosebleed, Denies nasal congestion - *Cardiovascular Reports other (See HPI) - *Respiratory Denies chest congestion, Denies cough - *Gastrointestinal Reports other (See HPI), Denies abdominal pain, Denies coffee ground vomit, Denies vomiting blood, Denies vomiting - *Genitourinary Denies difficulty urinating, Denies painful urination - *Musculoskeletal Reports joint pain, Denies body aches - Integumentary/Breasts Denies change in skin color - *Neurologic Denies confusion, Denies memory loss, Denies seizure-like activity - Psychiatric Denies anxiety, Denies change in appetite, Denies confusion - Endocrine Denies cold intolerance, Denies excessive sweating, Denies rapid, pounding, or irregular heartbeat - Hematologic/Lymphatic Denies easy bruising - Allergic/Immunologic Reports itchy eyes, Denies wheezing Meds Home Medications Medication Instructions Recorded Confirmed Type atorvastatin 40 mg tablet 40 mg PO HS 03/30/19 01/03/22 History aspirin 81 mg tablet,delayed 81 mg PO DAILY 09/21/19 01/03/22 History release carvedilol 12.5 mg tablet 12.5 mg PO DAILY tab 09/21/19 01/03/22 History Pioglitazone HCl 15 mg PO DAILY 07/28/20 01/03/22 History hydroCHLOROthiazide 25 mg PO DAILY 07/28/20 01/03/22 History [Hydrochlorothiazide] Omeprazole [Omeprazole 20mg Tab] 20 mg PO DAILY 07/31/20 01/03/22 History Clopidogrel Bisulfate [Plavix] 75 mg PO DAILY 08/05/20 01/03/22 History Amlodipine Besylate [Amlodipine See Rx Inst
--- NOTE | 2022-01-03 13:07 | ECG_ITS ---
APPROVED REPORT Exam: Resting ECG HR:95 bpm ECG Measurements Heart Rate 95 AXES DE 193 P 23 QRSd 117 QRS 5 QT 371 T 29 QTc 423 Conclusion SINUS RHYTHM MODERATE INTRAVENTRICULAR CONDUCTION DELAY [110+ ms QRS DURATION] NONSPECIFIC ST & T-WAVE ABNORMALITY BORDERLINE ECG UNCONFIRMED REPORT Electronically signed by : Tuan Fry MD 01/04/2022 15:11:16
[2022-01-03 13:29] LABS: Iron 67 ug/dL (49-181)
[2022-01-03 13:39] LABS: Total Iron Binding Capacity 339 ug/dL (261-462)
--- NOTE | 2022-01-03 14:02 | PC.NURSE ---
1305- pt complaining or pressure in his chest rated at an 8/10. 1307- EKG obtained by RT 1310- read by ER MD Beltran. No acute changes, order additional troponin 1330- pt said pain has resolved 1400- MD Davis notified, NNO
[2022-01-03 14:05] LABS: Ferritin 155 ng/ml (17.9-464)
[2022-01-03 14:06] LABS: Reticulocyte % (Auto) 9.6 % (0.9-3.2)
--- NOTE | 2022-01-03 14:38 | HMH.PHAVTE ---
[facility] Pharmacy VTE Monitoring - Patient Demographics Admission date: 01/03/22 Report Date: 01/03/22 Time: 14:38 Allergies/Adverse Reactions: Patient Allergies No Known Allergies Allergy (Verified 12/10/21 10:45) Height: 1.8 m Weight: 104.043 kg Patient Problems: Current Active Problems Unstable angina pectoris (Acute) Blood loss anemia (Acute) ASCVD (arteriosclerotic cardiovascular disease) (Acute) Dyslipidemia (Acute) Heme + stool (Acute) History of coronary angioplasty with insertion of stent (Chronic) HTN (hypertension) (Chronic) - VTE Risk Labs: VTE Related Lab Results Hgb 6.6 g/dL (14.1-18.0) L* 01/03/22 04:25 Hct 20.7 % (42.0-52.0) L* 01/03/22 04:25 Plt Count 398 K/mm3 (142-424) 01/03/22 04:25 BUN 27 mg/dl (9-20) H 01/03/22 04:25 Creatinine 0.70 mg/dl (0.66-1.25) 01/03/22 04:25 Estimated Creat Clear 107 mL/min (50-200) 01/03/22 04:25 VTE Score: 2 - Prophylaxis Types of VTE Prophylaxis: TEDS Knee High Location of Applied Device: Bilateral Lower Extremeties (TEDS)
[2022-01-03 14:49] LABS: Vitamin B12 162 pg/mL (239-931)
--- NOTE | 2022-01-03 14:55 | HMH.GSCON ---
*Admission Date: 01/03/22 *Reason for consult:: anemia and heme + stool *History of present illness: Patient is a 71-year-old male from [place], [place] whom I had previously seen for cholecystectomy. He has a reported history of heart disease, hypertension, hyperlipidemia, diabetes (diet-controlled) on Plavix. He has recently undergone left total knee arthroplasty. He states that he was prescribed ibuprofen postoperatively. He had developed a near syncopal episode at home described as lightheadedness, diaphoresis, shortness of air with associated nausea and chest pain. He presented to the emergency department due to concerns about cardiac issue. He underwent work-up in the emergency department including CTA of the chest which was negative for pulmonary embolism. He was noted to have a hemoglobin of 6.6. (It appears as though baseline hemoglobin is 14-15). BUN was 27 with a creatinine of 0.7. He does state that he had some dark stool a couple of days ago. No history of ulcer disease. He was admitted for inpatient management for transfusion and surgical consultation for possible upper endoscopy. Review of Systems - Review of Systems Review of systems:: pertinent systems reviewed and negative unless documented below - *Neurologic Reports dizziness, Denies abnormal hearing, Denies confusion, Denies memory loss, Denies seizure-like activity [facility] History I have reviewed the patient's past medical history: Yes Medical History: Reports:: Arrhythmia, Cancer (testicular), Carotid Stenosis, Congestive Heart Failure, Coronary Artery Disease, Cerebrovascular Accident, Diabetes Mellitus Type 2 (diet controlled), Hyperlipidemia, Hypertension, Myocardial Infarction, Transient Ischemic Attacks (TIA) Denies:: Diabetes Mellitus Type 1, Internal Pacemaker, MRSA, Seizures *Have you ever received a pneumonia vaccine?: Yes *Have you received a flu vaccine this season?: Yes Other Medical History: Denies: Anemia, Blood Transfusion Reaction Laterality Cases: Left: Total Knee Replacement Other Surgeries: Yes: No Previous Surgery, Cardiac Catheterization, Cardiac Surgery, Cholecystectomy, Colonoscopy, Coronary Stent, Open Heart Surgery, Ureter Stent, Other. No: Pacemaker Amputation: No Fractures: Yes (wrist) - *Social History Smoking Status: Former smoker Tobacco Type: cigarettes #Yrs smoked (if former smoker): 15 Alcohol Intake: never Alcohol Intake Frequency:: other Substance Use Type: denies use *Occupational Status:: retired Housing: house Household Members: none *Travel in the last 8 weeks: None Family Hx:: Coronary Artery Disease, Heart Attack, Stroke Meds Home Medications Medication Instructions Recorded Confirmed Type atorvastatin 40 mg tablet 40 mg PO HS 03/30/19 01/03/22 History aspirin 81 mg tablet,delayed 81 mg PO DAILY 09/21/19 01/03/22 History release carvedilol 12.5 mg tablet 12.5 mg PO DAILY tab 09/21/19 01/03/22 History Pioglitazone HCl 15 mg PO DAILY 07/28/20 01/03/22 History hydroCHLOROthiazide 25 mg PO DAILY 07/28/20 01/03/22 History [Hydrochlorothiazide] Omeprazole [Omeprazole 20mg Tab] 20 mg PO DAILY 07/31/20 01/03/22 History Clopidogrel Bisulfate [Plavix] 75 mg PO DAILY 08/05/20 01/03/22 History Amlodipine Besylate [Amlodipine 10 mg PO DAILY 04/29/21 01/03/22 History 10mg Tab] lisinopriL [Lisinopril] 20 mg PO DAILY 01/03/22 01/03/22 History Allergies Allergy/AdvReac Type Severity Reaction Status Date / Time No Known Allergies Allergy Verified 12/10/21 10:45 Exam Vital signs and Labs for Last 24 Hours: Temp Pulse Resp BP Pulse Ox 98.0 F 103 H 18 137/66 97 01/03/22 13:20 01/03/22 13:20 01/03/22 13:20 01/03/22 13:20 01/03/22 13:20 Laboratory Results - last 24 hr 01/03/22 04:25: WBC 10.0, RBC 2.24 L, Hgb 6.6 L*, Hct 20.7 L*, MCV 92.2, MCH 29.3, MCHC 31.7 L, RDW 16.9, Plt Count 398, MPV 8.9, Neut % (Auto) 73.4, Lymph % (Auto) 16.9, [place] % (Auto) 5.0, Eos % (Auto) 4.0, Baso % (Auto) 0.7
[2022-01-03 14:56] LABS: Folate 6.27 ng/mL
[2022-01-03 15:10] LABS: Troponin I < 0.01 ng/ml (0.00-0.034)
[2022-01-03 16:49] LABS: POC Glucose,Bedside 218 (70-110)
--- NOTE | 2022-01-03 18:47 | PC.NURSE ---
Pt is snf through 2nd unit of PRBC's. No s/s of transfusion reaction. Pt tolerated well, will continue to monitor.
--- NOTE | 2022-01-03 23:00 | PC.NURSE ---
2300 dr castillo called with pt complaints of knee pain s/p knee surgery on 12/23, note orders for norco 5/325 every 4 hours as needed for pain repeated and verified.
--- NOTE | 2022-01-03 23:17 | PC.NURSE ---
Pain reported in his TAR VS is in his knee. He reports having knee pain prior to blood administration and that he had received a shot for it in the ER.
[2022-01-04] VITALS (13 sets, daily range): BP systolic 140–158; BP diastolic 57–76; PULSE 69–90; RESP 17–18; TEMP 36.6–37.1; O2SAT 96–99; BMI 32.8
[2022-01-04 03:30] LABS: Hematocrit 28.5 % (42.0-52.0); Hemoglobin 9.7 g/dL (14.1-18.0)
--- NOTE | 2022-01-04 04:00 | PC.NURSE ---
PT TRANSFUSED 4 UNITS OF PRBC THROUGH THE NIGHT AND TOLERATED WELL, PT COMPLAINS OF LEFT KNEE PAIN UNCONTROLLED BY [place] S/P LEFT KNEE REPLACEMENT BY DR GRAHAM IN [place] ON 12/23. DRESSING STILL INTACT TO LEFT KNEE.
[2022-01-04 06:43] LABS: POC Glucose,Bedside 158 (70-110)
[2022-01-04 06:43] LABS: POC Glucose,Bedside 148 (70-110)
[2022-01-04 07:53] LABS: Basophils # 0.1 K/mm3 (0-0.2); Basophils % 0.8 % (0.1-2.0); Eosinophils # 0.4 K/mm3 (0.0-0.4); Eosinophils % 5.3 % (0.1-12.0); Hematocrit 28.5 % (42.0-52.0); Hemoglobin 9.6 g/dL (14.1-18.0); Lymphocytes # 1.3 K/mm3 (0.7-4.5); Lymphocytes % 15.7 % (10-50); Mean Corpuscular HGB Conc 33.5 g/dL (31.8-35.4); Mean Corpuscular Hemoglobin 29.2 pg (27.0-31.2); Mean Platelet Volume 7.2 fl (7.4-10.4); Monocytes # 0.6 K/mm3 (0.1-1.0); Monocytes % 6.8 % (1.7-9.3); Neutrophils # 5.9 K/mm3 (1.8-7.8); Neutrophils % 71.4 % (37.0-80.0); Platelet Count 311 K/mm3 (142-424); Red Blood Count 3.28 M/mm3 (4.60-6.20); Red Cell Distribution Width 16.9 % (11.5-17.5); White Blood Count 8.3 K/mm3 (4.8-10.8)
[2022-01-04 08:01] LABS: Chloride 110 mmol/L (98-107); Potassium 3.3 mmoL/L (3.5-5.1); Sodium 139 mmol/L (136-145)
[2022-01-04 08:04] LABS: Anion Gap 4.3 mEq/L (5-15); Blood Urea Nitrogen 15 mg/dl (9-20); Calcium 7.4 mg/dl (8.4-10.2); Carbon Dioxide 28 mmol/L (22.0-30.0); Creatinine Clearance Estimated 105 mL/min (50-200); Estimated Glomerular Filt Rate 112 ml/min (>60); GFR (African American) 135 ML/MIN (>60); Glucose 127 mg/dl (74-100)
--- NOTE | 2022-01-04 08:43 | P.PN_ITS ---
Internal Medicine - PN: Subj *Date: 01/04/22 *Time: 09:15 Interval history: Rested fairly well. Complains of pain in left knee from recent TKA - relieved with [place]. No abdominal pain or nausea. Exam Vital signs and Labs for Last 24 Hours: Temp Pulse Resp BP Pulse Ox 98.7 F 84 18 144/64 H 98 01/04/22 07:40 01/04/22 07:40 01/04/22 07:40 01/04/22 07:40 01/04/22 07:40 Laboratory Results - last 24 hr 01/03/22 04:25: Retic Count (auto) 9.6 H 01/03/22 05:00: Blood Type A Positive, Antibody Screen Negative, Crossmatch (AHG) See Detail 01/03/22 07:30: Vitamin B12 162 L, Folate 6.27 01/03/22 07:30: Iron 67, TIBC 339, Iron Saturation 19.68195, Ferritin 155 01/03/22 10:16: Troponin I < 0.01 01/03/22 14:16: Troponin I < 0.01 01/03/22 16:38: POC Glucose 218 H 01/03/22 22:08: POC Glucose 148 H 01/04/22 02:55: Hgb 9.7 L D, Hct 28.5 L 01/04/22 06:14: WBC 8.3, RBC 3.28 L D, Hgb 9.6 L, Hct 28.5 L, MCV 87.0, MCH 29.2, MCHC 33.5, RDW 16.9, Plt Count 311, MPV 7.2 L, Neut % (Auto) 71.4, Lymph % (Auto) 15.7, [place] % (Auto) 6.8, Eos % (Auto) 5.3, Baso % (Auto) 0.8, Neut # (Auto) 5.9, Lymph # (Auto) 1.3, [place] # (Auto) 0.6, Eos # (Auto) 0.4, Baso # (Auto) 0.1 01/04/22 06:14: Sodium 139, Potassium 3.3 L, Chloride 110 H, Carbon Dioxide 28, Anion Gap 4.3 L, BUN 15 D, Creatinine 0.70, Estimated Creat Clear 105, Estimated GFR 112, Est GFR ( Amer) 135, Glucose 127 H, Calcium 7.4 L 01/04/22 06:35: POC Glucose 158 H I & O for Last 24 hours: Intake & Output 01/01/22 01/02/22 01/03/22 01/04/22 11:59 11:59 11:59 11:59 Intake Total 1730 / 1730 Output Total 400 / 400 1475 / 1475 Balance -400 / -400 255 / 255 Weight 229 lb 6 oz 234 lb 8 oz Narrative: Appears in no distress. Color is normal. Lungs are clear anteriorly. Heart is regular. Abdomen is soft and nondistended with no unusual masses or tenderness. Assessment and Plan (1) Blood loss anemia Status: Acute Category: Medical Code(s): D50.0 - Iron deficiency anemia secondary to blood loss (chronic) (2) Heme + stool Status: Acute Category: Medical Code(s): R19.5 - Other fecal abnormalities (3) ASCVD (arteriosclerotic cardiovascular disease) Status: Acute Category: Medical Code(s): I25.10 - Atherosclerotic heart disease of [place] coronary artery without angina pectoris (4) Dyslipidemia Status: Acute Category: Medical Code(s): E78.5 - Hyperlipidemia, unspecified (5) HTN (hypertension) Status: Chronic Qualifiers: Hypertension type: primary hypertension Qualified Code(s): I10 - Essential (primary) hypertension Category: Medical Code(s): I10 - Essential (primary) hypertension (6) History of coronary angioplasty with insertion of stent Status: Chronic Category: Surgical Code(s): Z95.5 - Presence of coronary angioplasty implant and graft - Assessment and plan all Dx Assessment and Plan for all problems:: H&H stable after transfusion. VSS. Continue to hold Plavix and ASA with plan for EGD tomorrow per Dr. Villatoro. Up ad angie with walker.
--- NOTE | 2022-01-04 09:16 | HMH.GSPN ---
Subjective Narrative: Patient received 4 units packed red blood cells with reasonable response. He has had some melenic stools. No syncope. Progress Note: A&P (1) Blood loss anemia Status: Acute (2) Heme + stool Status: Acute (3) ASCVD (arteriosclerotic cardiovascular disease) Status: Acute (4) Dyslipidemia Status: Acute (5) HTN (hypertension) Status: Chronic (6) History of coronary angioplasty with insertion of stent Status: Chronic Assessment and Plan for All Diagnoses:: Plan for EGD tomorrow. I will go ahead and start him on clear liquids now and n.p.o. after midnight. Exam Vital signs and Labs for Last 24 Hours: Temp Pulse Resp BP Pulse Ox 98.7 F 84 18 144/64 H 98 01/04/22 07:40 01/04/22 07:40 01/04/22 07:40 01/04/22 07:40 01/04/22 07:40 Laboratory Results - last 24 hr 01/03/22 04:25: Retic Count (auto) 9.6 H 01/03/22 05:00: Blood Type A Positive, Antibody Screen Negative, Crossmatch (AHG) See Detail 01/03/22 07:30: Vitamin B12 162 L, Folate 6.27 01/03/22 07:30: Iron 67, TIBC 339, Iron Saturation 19.90667, Ferritin 155 01/03/22 10:16: Troponin I < 0.01 01/03/22 14:16: Troponin I < 0.01 01/03/22 16:38: POC Glucose 218 H 01/03/22 22:08: POC Glucose 148 H 01/04/22 02:55: Hgb 9.7 L D, Hct 28.5 L 01/04/22 06:14: WBC 8.3, RBC 3.28 L D, Hgb 9.6 L, Hct 28.5 L, MCV 87.0, MCH 29.2, MCHC 33.5, RDW 16.9, Plt Count 311, MPV 7.2 L, Neut % (Auto) 71.4, Lymph % (Auto) 15.7, [place] % (Auto) 6.8, Eos % (Auto) 5.3, Baso % (Auto) 0.8, Neut # (Auto) 5.9, Lymph # (Auto) 1.3, [place] # (Auto) 0.6, Eos # (Auto) 0.4, Baso # (Auto) 0.1 01/04/22 06:14: Sodium 139, Potassium 3.3 L, Chloride 110 H, Carbon Dioxide 28, Anion Gap 4.3 L, BUN 15 D, Creatinine 0.70, Estimated Creat Clear 105, Estimated GFR 112, Est GFR ( Amer) 135, Glucose 127 H, Calcium 7.4 L 01/04/22 06:35: POC Glucose 158 H I & O for Last 24 hours: Intake & Output 01/01/22 01/02/22 01/03/22 01/04/22 11:59 11:59 11:59 11:59 Intake Total 2089 / 2089 Output Total 400 / 400 1475 / 1475 Balance -400 / -400 615 / 615 Weight 229 lb 6 oz 234 lb 8 oz - *Routine Abdominal Exam Present: soft
[2022-01-05] VITALS (19 sets, daily range): BP systolic 125–165; BP diastolic 56–78; PULSE 61–85; RESP 16–20; TEMP 36.4–36.9; O2SAT 92–98; BMI 32.5
[2022-01-05 01:20] LABS: POC Glucose,Bedside 213 (70-110)
[2022-01-05 01:20] LABS: POC Glucose,Bedside 164 (70-110)
[2022-01-05 06:53] LABS: Basophils # 0.1 K/mm3 (0-0.2); Basophils % 0.8 % (0.1-2.0); Eosinophils # 0.5 K/mm3 (0.0-0.4); Hematocrit 30.4 % (42.0-52.0); Hemoglobin 9.9 g/dL (14.1-18.0); Lymphocytes # 1.1 K/mm3 (0.7-4.5); Lymphocytes % 15.8 % (10-50); Mean Corpuscular HGB Conc 32.8 g/dL (31.8-35.4); Mean Corpuscular Hemoglobin 29.1 pg (27.0-31.2); Mean Corpuscular Volume 88.9 fl (80-94); Mean Platelet Volume 7.1 fl (7.4-10.4); Monocytes # 0.5 K/mm3 (0.1-1.0); Monocytes % 7.8 % (1.7-9.3); Neutrophils # 4.7 K/mm3 (1.8-7.8); Neutrophils % 68.5 % (37.0-80.0); Platelet Count 315 K/mm3 (142-424); Red Blood Count 3.42 M/mm3 (4.60-6.20); Red Cell Distribution Width 18.1 % (11.5-17.5); White Blood Count 6.9 K/mm3 (4.8-10.8)
[2022-01-05 07:02] LABS: Chloride 108 mmol/L (98-107); Sodium 138 mmol/L (136-145)
[2022-01-05 07:03] LABS: Potassium 3.8 mmoL/L (3.5-5.1)
[2022-01-05 07:05] LABS: Blood Urea Nitrogen 10 mg/dl (9-20); Creatinine Clearance Estimated 104 mL/min (50-200); Estimated Glomerular Filt Rate 134 ml/min (>60); GFR (African American) 162 ML/MIN (>60)
[2022-01-05 07:06] LABS: Anion Gap 5.8 mEq/L (5-15); Calcium 8.7 mg/dl (8.4-10.2); Carbon Dioxide 28 mmol/L (22.0-30.0); Glucose 134 mg/dl (74-100)
[2022-01-05 07:49] LABS: POC Glucose,Bedside 140 (70-110)
--- NOTE | 2022-01-05 09:03 | P.PN_ITS ---
[facility] Anesthesia Checklist - Patient Identification Patient Identification: Arm Band - Structural Data Admitted From: Home Planned Operative Procedure/s: EGD Consent for Planned Operative Procedure(s) Verified: Yes Verified Documents: Surgical Consent, History and Physical - NPO Status Verified Time NPO: 00:00 - Additional verifications Anesthesia Reactions: No Hx Blood Transfusions: No Blood Transfusion Reaction: No - Airway Assessment C-Spine Mobility Assessed: Yes (mp2) TMJ Mobility Assessed: Yes Dentition: Good Dentition - Neurological Assessment Level of Consciousness: Awake, Alert - Anesthesia Plan Anesthesia Risk discussed: Yes Anesthesia Plan: Verified ASA Class: III Anesthesia Type: MAC [facility] History I have reviewed the patient's past medical history: Yes Medical History: Reports:: Arrhythmia, Cancer (testicular), Carotid Stenosis, Congestive Heart Failure, Coronary Artery Disease, Cerebrovascular Accident, Diabetes Mellitus Type 2 (diet controlled), Hyperlipidemia, Hypertension, Myocardial Infarction, Transient Ischemic Attacks (TIA) Denies:: Diabetes Mellitus Type 1, Internal Pacemaker, MRSA, Seizures *Have you ever received a pneumonia vaccine?: Yes *Have you received a flu vaccine this season?: Yes Other Medical History: Denies: Anemia, Blood Transfusion Reaction Anesthesia experience/problems:: nac Laterality Cases: Left: Total Knee Replacement Other Surgeries: Yes: Cardiac Catheterization, Cardiac Surgery, Cholecystectomy, Colonoscopy, Coronary Stent, Open Heart Surgery, Ureter Stent, Other. No: Pacemaker Amputation: No Fractures: Yes (wrist) - *Social History Smoking Status: Former smoker Tobacco Type: cigarettes #Yrs smoked (if former smoker): 15 Alcohol Intake: never Alcohol Intake Frequency:: other Substance Use Type: denies use *Occupational Status:: retired Housing: house Household Members: none *Travel in the last 8 weeks: None Family Hx:: Coronary Artery Disease, Heart Attack, Stroke
--- NOTE | 2022-01-05 09:34 | HMH.SCOPE ---
- Procedure: Date: 01/05/22 Patient Date of :: 1950 Procedure Performed:: Esophagogastroduodenoscopy with injection of epinephrine and clip deployment for hemostasis Indications:: Patient is a 71-year-old male from [place], [place] whom I had previously seen for cholecystectomy. He has a reported history of heart disease, previous myocardial infarction, coronary stenting x8, previous CVA, hypertension, hyperlipidemia, diabetes (diet-controlled) on Plavix. He has recently undergone left total knee arthroplasty. He states that he was prescribed ibuprofen postoperatively. He had developed a near syncopal episode at home described as lightheadedness, diaphoresis, shortness of air with associated nausea and chest pain. He presented to the emergency department due to concerns about cardiac issue. He underwent work-up in the emergency department including CTA of the chest which was negative for pulmonary embolism. Cardiac etiology was ruled out. He was noted to have a hemoglobin of 6.6. (It appears as though baseline hemoglobin is 14-15). BUN was 27 with a creatinine of 0.7. He does state that he had some dark stool in the. No history of ulcer disease. He was admitted for inpatient management for transfusion and surgical consultation for possible upper endoscopy. He was transfused 4 units packed red blood cells with appropriate response. He has had some dark stools. Plan was made for EGD. Performing Provider:: Kemal Villatoro MD Referring Provider:: Mitchell Davis MD Sedation:: MAC sedation Procedure:: Patient was taken to endoscopy procedure room. He was positioned in lateral decubitus position. Adequate intravenous sedation was achieved with anesthesia titration of propofol. Olympus endoscope was inserted via the oropharynx. Is advanced into the esophagus which was cannulated. Overall esophagus appeared unremarkable. Gastroesophageal junction was encountered at approximately 42 cm from the incisors. Stomach was cannulated and insufflated. There was some bile liquid within the stomach. Retroflexion was performed which revealed no evidence of any appreciable hiatal hernia. There was some mild diffuse nonerosive gastropathy. However, in the prepyloric location there were several small nonbleeding erosions consistent with prepyloric erosive gastritis. Pylorus was traversed. Within the the duodenum there were 3 moderate-sized ulcers in the first and second portion of the duodenum. Most of these had clean exudate. The most proximal ulcer had some minor oozing but no visible vessel no active bleeding. Endoscope was able to be advanced beyond these 3 duodenal ulcers in the distal duodenum appeared unremarkable. Endoscope was once again withdrawn into the duodenal bulb. Epinephrine was injected in the region of the most proximal ulcer which showed some signs of oozing. 9 cc of epinephrine was injected submucosally circumferentially with some minor difficulty. There was good blanching of the mucosa. At the site of some minor oozing a couple of hemoclips were deployed to ensure hemostasis. There appeared to be no active bleeding or definite ongoing oozing. The endoscope was withdrawn into the stomach. Stomach was desufflated and the endoscope was withdrawn. Findings:: Gastroesophageal junction at 42 cm from the incisors Mild diffuse gastropathy Prepyloric erosive gastritis Duodenal ulcer x3 as noted above Recommendations:: Limit to clear liquid diet today. Recommend high-dose proton pump inhibitors for therapeutic purposes. I will add Cytotec. If okay with cardiology would hold antiplatelet agents. Once hemoglobin remained stable for at least 72 hours may be able to discharge home on oral proton pump inhibitors and Cytotec. Recommend repeat EGD as outpatient in 6 to 12 weeks assuming patient remains stable and is able to be discharged. Complications:: None immediately apparent Estimated blood obtained (mL): 3
--- NOTE | 2022-01-05 10:19 | CT_ITS ---
FINAL REPORT TECHNIQUE: After the administration of intravenous contrast, axial images were obtained through the abdomen and pelvis by computed tomography. The study was performed with techniques to keep radiation dose as low as reasonably achievable, (ALARA). Individual dose reduction techniques using automated exposure control or adjustment of mA and/or kV according to the patient's size were employed. CLINICAL HISTORY: ULCER, EPIGASTRIC PAIN, NAUSEA, RUQ PAIN COMPARISON: April 29, 2021 FINDINGS: Abdomen: There is chronic scarring in the lung bases. The liver parenchyma is homogeneous. The gallbladder is surgically absent. There is a 2.7 cm cystic lesion in the medial right kidney. There are endoscopic clips in the region of the duodenal bulb or 2nd portion of the duodenum with adjacent mucosal thickening probably due to prior ulcer clipping. Findings are seen on images 41-44. There is minimal surrounding stranding. The spleen, pancreas, and adrenals appear unremarkable. The aorta is normal in caliber. There is no free fluid or adenopathy. Pelvis: The appendix is normal. The urinary bladder is unremarkable. There is no free fluid or adenopathy. There is diverticulosis of the sigmoid colon. There are bilateral pars defects at L5 with grade 1-2 spondylolisthesis. IMPRESSION: Endoscopic clips in the region of the duodenal bulb or 2nd portion of the duodenum with adjacent mucosal thickening and minimal surrounding stranding probably due to prior ulcer clipping. Diverticulosis without evidence of diverticulitis. Reviewed, Interpreted and Dictated by Cruzito Lee MD Transcribed by Hao Loera Authenticated by Cruzito Lee MD on 01/05/2022 12:16:[address] [facility]
--- NOTE | 2022-01-05 10:21 | HMH.GSPN ---
Subjective Narrative: Pt having epigastric pain post-endoscopy. Progress Note: A&P (1) Blood loss anemia Status: Acute (2) Heme + stool Status: Acute (3) ASCVD (arteriosclerotic cardiovascular disease) Status: Acute (4) Dyslipidemia Status: Acute (5) HTN (hypertension) Status: Chronic (6) History of coronary angioplasty with insertion of stent Status: Chronic Assessment and Plan for All Diagnoses:: Possible reactive pain from epinephrine injection. Will obtain stat CT scan. Exam Vital signs and Labs for Last 24 Hours: Temp Pulse Resp BP Pulse Ox 97.6 F 85 18 165/72 H 92 L 01/05/22 09:37 01/05/22 09:37 01/05/22 09:37 01/05/22 09:37 01/05/22 09:37 Laboratory Results - last 24 hr 01/04/22 16:08: POC Glucose 164 H 01/04/22 21:23: POC Glucose 213 H 01/05/22 06:17: WBC 6.9, RBC 3.42 L, Hgb 9.9 L, Hct 30.4 L, MCV 88.9, MCH 29.1, MCHC 32.8, RDW 18.1 H, Plt Count 315, MPV 7.1 L, Neut % (Auto) 68.5, Lymph % (Auto) 15.8, [place] % (Auto) 7.8, Eos % (Auto) 7.0, Baso % (Auto) 0.8, Neut # (Auto) 4.7, Lymph # (Auto) 1.1, [place] # (Auto) 0.5, Eos # (Auto) 0.5 H, Baso # (Auto) 0.1 01/05/22 06:17: Sodium 138, Potassium 3.8, Chloride 108 H, Carbon Dioxide 28, Anion Gap 5.8, BUN 10 D, Creatinine 0.60 L, Estimated Creat Clear 104, Estimated GFR 134, Est GFR ( Amer) 162, Glucose 134 H, Calcium 8.7 01/05/22 07:41: POC Glucose 140 H I & O for Last 24 hours: Intake & Output 01/02/22 01/03/22 01/04/22 01/05/22 11:59 11:59 11:59 11:59 Intake Total 2090 / 2090 871 / 871 Output Total 400 / 400 1475 / 1475 2150 / 2150 Balance -400 / -400 615 / 615 -1279 / -1279 Weight 229 lb 6 oz 234 lb 8 oz 232 lb 5 oz - *Routine Abdominal Exam Present: soft. Absent: rebound, guarding
[2022-01-05 11:10] LABS: POC Glucose,Bedside 131 (70-110)
[2022-01-05 16:40] LABS: POC Glucose,Bedside 147 (70-110)
--- NOTE | 2022-01-05 16:53 | PC.NURSE ---
PT IS RESTING IN BED. PT WAS COMPLAINING OF SOME RUQ ABDOMINAL DISCOMFORT WHEN ARRIVING BACK TO THE FLOOR FROM POST OP. MEDICATED PER MAR FOR DISCOMFORT. PT HAS AMBULATED TO THE BATHROOM WITH WALKER. TOLERATING CLEAR LIQUIDS. VOIDING WELL. DRESSING TO THE LEFT KNEE FROM KNEE REPLACEMENT. LUNG SOUNDS CLEAR. ABDOMEN SOFT WITH ACTIVE BOWEL SOUNDS. VSS. WILL CONTINUE TO MONITOR.
--- NOTE | 2022-01-05 17:40 | HMH.ACPN2 ---
Internal Medicine - PN: Subj *Date: 01/05/22 *Time: 07:45 Interval history: He rested little better last night. Denies abdominal pain. Stools have been melanotic. No nausea or vomiting. Exam Vital signs and Labs for Last 24 Hours: Temp Pulse Resp BP Pulse Ox 98.5 F 69 18 137/66 97 01/05/22 15:59 01/05/22 15:59 01/05/22 15:59 01/05/22 15:59 01/05/22 15:59 Laboratory Results - last 24 hr 01/04/22 16:08: POC Glucose 164 H 01/04/22 21:23: POC Glucose 213 H 01/05/22 06:17: WBC 6.9, RBC 3.42 L, Hgb 9.9 L, Hct 30.4 L, MCV 88.9, MCH 29.1, MCHC 32.8, RDW 18.1 H, Plt Count 315, MPV 7.1 L, Neut % (Auto) 68.5, Lymph % (Auto) 15.8, [place] % (Auto) 7.8, Eos % (Auto) 7.0, Baso % (Auto) 0.8, Neut # (Auto) 4.7, Lymph # (Auto) 1.1, [place] # (Auto) 0.5, Eos # (Auto) 0.5 H, Baso # (Auto) 0.1 01/05/22 06:17: Sodium 138, Potassium 3.8, Chloride 108 H, Carbon Dioxide 28, Anion Gap 5.8, BUN 10 D, Creatinine 0.60 L, Estimated Creat Clear 104, Estimated GFR 134, Est GFR ( Amer) 162, Glucose 134 H, Calcium 8.7 01/05/22 07:41: POC Glucose 140 H 01/05/22 11:03: POC Glucose 131 H 01/05/22 16:23: POC Glucose 147 H I & O for Last 24 hours: Intake & Output 01/03/22 01/04/22 01/05/22 01/06/22 11:59 11:59 11:59 11:59 Intake Total 2089 / 0 871 / 871 480 / 480 Output Total 400 / 400 1475 / 1475 2150 / 2150 1200 / 1200 Balance -400 / -400 615 / 615 -1279 / -1279 -720 / -720 Weight 229 lb 6 oz 234 lb 8 oz 232 lb 5 oz Narrative: He is lying comfortably in bed. Color is good. Lungs are clearly. Heart is regular. Abdomen soft and nondistended with no masses or tenderness. Assessment and Plan (1) Blood loss anemia Status: Acute Category: Medical Code(s): D50.0 - Iron deficiency anemia secondary to blood loss (chronic) (2) Heme + stool Status: Acute Category: Medical Code(s): R19.5 - Other fecal abnormalities (3) ASCVD (arteriosclerotic cardiovascular disease) Status: Acute Category: Medical Code(s): I25.10 - Atherosclerotic heart disease of [place] coronary artery without angina pectoris (4) Dyslipidemia Status: Acute Category: Medical Code(s): E78.5 - Hyperlipidemia, unspecified (5) HTN (hypertension) Status: Chronic Qualifiers: Hypertension type: primary hypertension Qualified Code(s): I10 - Essential (primary) hypertension Category: Medical Code(s): I10 - Essential (primary) hypertension (6) History of coronary angioplasty with insertion of stent Status: Chronic Category: Surgical Code(s): Z95.5 - Presence of coronary angioplasty implant and graft - Assessment and plan all Dx Assessment and Plan for all problems:: Hemoglobin has remained stable since receiving the 4 units of blood. He is scheduled for EGD today.
[2022-01-06] VITALS: BP 153/57; PULSE 60; RESP 18; TEMP 36.6; O2SAT 96
[2022-01-06 00:03] LABS: POC Glucose,Bedside 134 (70-110)
[2022-01-06 04:00] VITALS: BP 151/61; PULSE 70; PULSE 75; RESP 18; TEMP 36.6; O2SAT 97
[2022-01-06 05:00] VITALS: BMI 32.1
--- NOTE | 2022-01-06 05:34 | PC.NURSE ---
pt has not rested well this shift. pt c/o pain one time in left knee and treated with PRN pain medication and ice. Pt remains on 2L NC and his O2 sats have been 96-97%. Pt has not had a BM so far this shift. He had not c/o N/V. Pt remains on engine monitor and has been NSR and 1st degree AV block with HR ranging from 60-79.
--- NOTE | 2022-01-06 06:19 | PC.NURSE ---
room air sat at this time is 94%, pt left on room air
[2022-01-06 06:20] VITALS: O2SAT 94
--- NOTE | 2022-01-06 06:25 | HMH.GSPN ---
Subjective Narrative: Patient's upper abdominal pain which she had post endoscopy has resolved. CT scan revealed expected findings with inflammation of the duodenum and clips placed. Abdominal pain most likely secondary to epinephrine injection. He has had no additional melena. Progress Note: A&P (1) Blood loss anemia Status: Acute (2) Heme + stool Status: Acute (3) ASCVD (arteriosclerotic cardiovascular disease) Status: Acute (4) Dyslipidemia Status: Acute (5) HTN (hypertension) Status: Chronic (6) History of coronary angioplasty with insertion of stent Status: Chronic Assessment and Plan for All Diagnoses:: Labs pending. If hemoglobin remained stable and he is able to withhold his Plavix for some time possible discharge home soon on Protonix and Cytotec. Exam Vital signs and Labs for Last 24 Hours: Temp Pulse Resp BP Pulse Ox 97.8 F 70 18 151/61 H 94 L 01/06/22 04:00 01/06/22 04:00 01/06/22 04:00 01/06/22 04:00 01/06/22 06:20 Laboratory Results - last 24 hr 01/05/22 06:17: WBC 6.9, RBC 3.42 L, Hgb 9.9 L, Hct 30.4 L, MCV 88.9, MCH 29.1, MCHC 32.8, RDW 18.1 H, Plt Count 315, MPV 7.1 L, Neut % (Auto) 68.5, Lymph % (Auto) 15.8, [place] % (Auto) 7.8, Eos % (Auto) 7.0, Baso % (Auto) 0.8, Neut # (Auto) 4.7, Lymph # (Auto) 1.1, [place] # (Auto) 0.5, Eos # (Auto) 0.5 H, Baso # (Auto) 0.1 01/05/22 06:17: Sodium 138, Potassium 3.8, Chloride 108 H, Carbon Dioxide 28, Anion Gap 5.8, BUN 10 D, Creatinine 0.60 L, Estimated Creat Clear 104, Estimated GFR 134, Est GFR ( Amer) 162, Glucose 134 H, Calcium 8.7 01/05/22 07:41: POC Glucose 140 H 01/05/22 11:03: POC Glucose 131 H 01/05/22 16:23: POC Glucose 147 H 01/05/22 20:48: POC Glucose 134 H I & O for Last 24 hours: Intake & Output 01/03/22 01/04/22 01/05/22 01/06/22 11:59 11:59 11:59 11:59 Intake Total 2089 / 0 871 / 871 480 / 480 Output Total 400 / 400 1475 / 1475 2150 / 2150 2100 / 2100 Balance -400 / -400 615 / 615 -1279 / -1279 -1620 / -1620 Weight 229 lb 6 oz 234 lb 8 oz 232 lb 5 oz - *Routine Abdominal Exam Present: soft. Absent: tenderness
[2022-01-06 07:01] LABS: POC Glucose,Bedside 120 (70-110)
[2022-01-06 07:26] LABS: Basophils % 0.5 % (0.1-2.0); Eosinophils # 0.4 K/mm3 (0.0-0.4); Eosinophils % 6.3 % (0.1-12.0); Hemoglobin 10.5 g/dL (14.1-18.0); Lymphocytes # 0.9 K/mm3 (0.7-4.5); Lymphocytes % 14.6 % (10-50); Mean Corpuscular HGB Conc 33.9 g/dL (31.8-35.4); Mean Corpuscular Hemoglobin 30.7 pg (27.0-31.2); Mean Corpuscular Volume 90.5 fl (80-94); Mean Platelet Volume 7.6 fl (7.4-10.4); Monocytes # 0.4 K/mm3 (0.1-1.0); Monocytes % 6.2 % (1.7-9.3); Neutrophils # 4.5 K/mm3 (1.8-7.8); Neutrophils % 72.4 % (37.0-80.0); Platelet Count 317 K/mm3 (142-424); Red Blood Count 3.42 M/mm3 (4.60-6.20); Red Cell Distribution Width 17.7 % (11.5-17.5); White Blood Count 6.2 K/mm3 (4.8-10.8)
[2022-01-06 08:00] VITALS: BP 160/68; PULSE 70; PULSE 76; RESP 17; TEMP 36.7; O2SAT 94
--- NOTE | 2022-01-06 08:56 | HMH.PHAINT ---
I spoke with the patient today about their medication list. Went over the new medications, medications to continue, medications to temporarily hold, and the medication he was to stop taking. When we spoke, there were no questions or concerns. The patient was provided a copy of the medication list and was informed on where he could pick the medications up at.
--- NOTE | 2022-01-06 12:31 | HMH.ACPN2 ---
Internal Medicine - PN: Subj *Date: 01/06/22 *Time: 08:05 Interval history: No new complaints this morning. He is tolerating his diet. Denies abdominal pain or nausea. Exam Vital signs and Labs for Last 24 Hours: Temp Pulse Resp BP Pulse Ox 98.0 F 76 17 160/68 H 94 L 01/06/22 08:00 01/06/22 08:00 01/06/22 08:00 01/06/22 08:00 01/06/22 08:00 Laboratory Results - last 24 hr 01/05/22 16:23: POC Glucose 147 H 01/05/22 20:48: POC Glucose 134 H 01/06/22 06:20: POC Glucose 120 H 01/06/22 06:50: WBC 6.2, RBC 3.42 L, Hgb 10.5 L, Hct 31.0 L, MCV 90.5, MCH 30.7, MCHC 33.9, RDW 17.7 H, Plt Count 317, MPV 7.6, Neut % (Auto) 72.4, Lymph % (Auto) 14.6, [place] % (Auto) 6.2, Eos % (Auto) 6.3, Baso % (Auto) 0.5, Neut # (Auto) 4.5, Lymph # (Auto) 0.9, [place] # (Auto) 0.4, Eos # (Auto) 0.4, Baso # (Auto) 0.0 I & O for Last 24 hours: Intake & Output 01/04/22 01/05/22 01/06/22 01/07/22 11:59 11:59 11:59 11:59 Intake Total 0 / 2090 871 / 871 720 / 720 Output Total 1475 / 1475 2150 / 2150 2350 / 2350 Balance 615 / 615 -1279 / -1279 -1630 / -1630 Weight 234 lb 8 oz 232 lb 5 oz 229 lb 14.4 oz Narrative: No acute distress. Color is normal. Lungs are clear to auscultation. Abdomen soft and nondistended with no masses or tenderness. Assessment and Plan (1) Duodenal ulcer Status: Acute Category: Medical Code(s): K26.9 - Duodenal ulcer, unspecified as acute or chronic, without hemorrhage or perforation (2) Blood loss anemia Status: Acute Category: Medical Code(s): D50.0 - Iron deficiency anemia secondary to blood loss (chronic) (3) ASCVD (arteriosclerotic cardiovascular disease) Status: Acute Category: Medical Code(s): I25.10 - Atherosclerotic heart disease of [place] coronary artery without angina pectoris (4) Dyslipidemia Status: Acute Category: Medical Code(s): E78.5 - Hyperlipidemia, unspecified (5) HTN (hypertension) Status: Chronic Qualifiers: Hypertension type: primary hypertension Qualified Code(s): I10 - Essential (primary) hypertension Category: Medical Code(s): I10 - Essential (primary) hypertension (6) History of coronary angioplasty with insertion of stent Status: Chronic Category: Surgical Code(s): Z95.5 - Presence of coronary angioplasty implant and graft - Assessment and plan all Dx Assessment and Plan for all problems:: Hemoglobin is stable and has increased to 10.5 today. He is stable for discharge home. He will remain off his Plavix and aspirin for 2 weeks and then resume. He is to follow-up with his PCP in 1 week to recheck his hemoglobin. He will follow-up with Dr. Villatoro in 1 month with plans for repeat EGD in 6 to 8 weeks.
--- NOTE | 2022-01-06 22:46 | HMH.DCSUM ---
General - General Admission date:: 01/03/22 <Samir Davis - 01/16/22 07:57> 01/03/22 <DemetrioAngela - 01/06/22 22:55> Discharge date: 01/06/22 <PalRigo desaia - 01/06/22 22:55> HPI HPI: Mr. De Jesus is a 71-year-old white male with a history of heart disease, hypertension, hyperlipidemia, and diet-controlled diabetes who has recently undergone left TKA. He presented to the ER early this morning after a near syncopal episode at home. He states he was walking through his house when he became lightheaded, diaphoretic, short of breath, nauseous, and had some chest pain. He did not lose consciousness. Because of his history of heart disease, he thought he was having a heart attack and presented to the ER. He was worked up in the ER and his EKG and enzymes were negative. He also had a CTA of the chest that was negative for PE. Laboratory data was remarkable for a hemoglobin of 6.6 and stool was positive for occult blood. He denies abdominal pain, diarrhea, constipation, or hematochezia. He states he had a dark stool 2 days ago. He has no history of ulcer disease. He has had a previous cholecystectomy. He has had a normal colonoscopy in the past but not sure when his last scope was. He has been admitted for blood transfusion and further work-up of his anemia. <PalAngela desai - 01/06/22 22:55> Hospital Course Hospital Course: The patient was admitted for blood transfusion and further work-up of his anemia. He was hemodynamically stable. Surgery was consulted for possible EGD. He was empirically started on IV Protonix. His blood sugars were monitored as he had a history of diet-controlled diabetes and stated he was not currently taking the pioglitazone that was listed on his med list. His home medications were continued except for aspirin and Plavix. He was seen by Dr. Villatoro in consultation who agreed with transfusion and PPIs. He did not want to plan for immediate upper endoscopy, but rather wanted to wait a few days. His H&H was stable after transfusion. He received 4 units of packed red blood cells. He had no further syncopal episodes. He was started on clear liquids and scheduled for an EGD. Dr. Villatoro performed the EGD on 01/05/2022. He found mild diffuse gastropathy, prepyloric erosive gastritis, and duodenal ulcers x3. He recommended high-dose PPI was and also added Cytotec. He wanted to continue to hold antiplatelet agents. He wanted the patient's hemoglobin to remain stable for at least 72 hours before discharge. He recommended a repeat EGD outpatient in 6 to 12 weeks. The patient did have some epigastric pain post endoscopy. It was felt this was reactive pain from the epinephrine injection, but a CT was ordered stat. It revealed expected findings of inflammation of the duodenum and clips placed. By 01/06/2022, the patient's abdominal pain improved. He had no nausea or vomiting. His hemoglobin remained stable after receiving the 4 units. He was tolerating a diet. It was felt he was stable to be discharged home. He will remain off of his Plavix and aspirin for 3 weeks and will follow up with his PCP in 1 week to recheck hemoglobin. We will follow up with Dr. Villatoro in 1 month with plans for repeat EGD in 6 to 8 weeks. <Angela Atkinson - 01/06/22 22:55> Objective Vital signs: Temp Pulse Resp BP Pulse Ox 98.0 F 76 17 160/68 H 94 L 01/06/22 08:00 01/06/22 08:00 01/06/22 08:00 01/06/22 08:00 01/06/22 08:00 <Samir Davis - 01/16/22 07:57> Temp Pulse Resp BP Pulse Ox 98.0 F 76 17 160/68 H 94 L 01/06/22 08:00 01/06/22 08:00 01/06/22 08:00 01/06/22 08:00 01/06/22 08:00 <Angela Atkinson - 01/06/22 22:55> Narrative: No acute distress. Color is normal. Lungs are clear to auscultation. Abdomen soft and nondistended with no masses or tenderness. <Angela Atkinson - 01/06/22 22:55> Results Labs on day of discharge: Labs from last 24 hours
--- NOTE | 2022-01-07 15:14 | CARE MANAGER ---
Contacted patient related to discharge from hospital. He states he is feeling well and was able to get his prescriptions. Verified with him the time and date of his appointments. Denies questions or concerns. ARTIS Zelaya
== END 2022-01-06 10:40 | disposition home or self-care (01) | DRG 378 ==
LOC: ER 04:16 → 2ND 07:57
PROVIDERS: Student in an Organized Health Care Education/Training Program; Surgery; Admitting Provider Family Medicine; Emergency Provider Emergency Medicine; PCP Nurse Practitioner Family; Visit Provider Family Medicine
PROC: 0DJ08ZZ Inspection of Upper Intestinal Tract, Via Natural or Artificial Opening Endoscopic (ICD-10-PCS; CPT 43235; principal; 2022-01-05 10:30)
DX: K26.4 Chronic or unspecified duodenal ulcer with hemorrhage (principal); D62 Acute posthemorrhagic anemia; I25.110 Atherosclerotic heart disease of native coronary artery with unstable angina pectoris; K29.71 Gastritis, unspecified, with bleeding; R55 Syncope and collapse; I10 Essential (primary) hypertension; Z95.5 Presence of coronary angioplasty implant and graft; I25.10 Atherosclerotic heart disease of native coronary artery without angina pectoris; Z96.652 Presence of left artificial knee joint; Z87.891 Personal history of nicotine dependence; M19.90 Unspecified osteoarthritis, unspecified site; Z86.73 Personal history of transient ischemic attack (TIA), and cerebral infarction without residual deficits; I25.2 Old myocardial infarction; E11.9 Type 2 diabetes mellitus without complications; I65.23 Occlusion and stenosis of bilateral carotid arteries; Z85.47 Personal history of malignant neoplasm of testis
CPT/HCPCS: 43255; 36415; 71045; 71275; 73502; 74177; 80048; 80076; 82272; 82607; 82728; 82746; 82962; 83540; 83550; 83880; 84145; 84484; 85014; 85018; 85025; 85044; 85651; 86140; 86850; 93005; 99285; C9803; G0328; J2405; P9016; Q9967; U0003; U0005

== ENCOUNTER → 2022-02-16 07:49 | Outpatient (CLI) | payer MEDICARE, SELFPAY | PROVIDERS: PCP Nurse Practitioner Family; Visit Provider Surgery | DX: Z01.812 Encounter for preprocedural laboratory examination (principal); Z20.822 Contact with and (suspected) exposure to COVID-19; D64.9 Anemia, unspecified | CPT/HCPCS: C9803; U0003; U0005 ==

== ENCOUNTER → 2022-03-18 08:17 | Outpatient (CLI) | payer MEDICARE, SELFPAY | PROVIDERS: PCP Nurse Practitioner Family; Visit Provider Surgery | DX: Z01.812 Encounter for preprocedural laboratory examination (principal); Z20.822 Contact with and (suspected) exposure to COVID-19; Z13.810 Encounter for screening for upper gastrointestinal disorder | CPT/HCPCS: C9803; U0003; U0005 ==

== ENCOUNTER 2022-03-20 08:13 | Day surgery (SDC) | payer MEDICARE, SELFPAY ==
[2022-03-18 10:35] VITALS: BMI 32.8
--- NOTE | 2022-03-20 08:11 | HMH.GSHP ---
HPI HPI: Patient presents for followup EGD. He underwent inpatient EGD on 01/05/2022. He is a 71-year-old male from [place], [place] whom I had previously seen for cholecystectomy.? He has a reported history of heart disease, previous myocardial infarction, coronary stenting x8, previous CVA, hypertension, hyperlipidemia, diabetes (diet-controlled) previously on Plavix.? He has recently undergone left total knee arthroplasty.? He states that he was prescribed ibuprofen postoperatively.? He had developed a near syncopal episode at home described as lightheadedness, diaphoresis, shortness of air with associated nausea and chest pain.? He presented to the emergency department due to concerns about cardiac issue.? He underwent work-up in the emergency department including CTA of the chest which was negative for pulmonary embolism.? Cardiac etiology was ruled out.? He was noted to have a hemoglobin of 6.6.? (It appears as though baseline hemoglobin is 14-15).? BUN was 27 with a creatinine of 0.7.? Patient had been transfused 4 units packed red blood cells with appropriate response. He underwent EGD on 01/05/2022. This revealed gastroesophageal junction at 42 cm from incisors, mild diffuse gastropathy, Prepyloric erosive gastritis, and duodenal ulcer x3. Most of these had clean exudate. The most proximal ulcer had some minor oozing but no visible vessel no active bleeding. He was able to be managed ultimately as an outpatient on PPI. Plan was made for follow-up endoscopy to assess for healing of ulcers. [facility] History I have reviewed the patient's past medical history: Yes Medical History: Reports:: Arrhythmia, Cancer (testicle), Carotid Stenosis, Congestive Heart Failure, Coronary Artery Disease, Cerebrovascular Accident, Hyperlipidemia, Hypertension, Myocardial Infarction, Transient Ischemic Attacks (TIA) Denies:: Diabetes Mellitus Type 1, Diabetes Mellitus Type 2, Internal Pacemaker, MRSA, Seizures *Have you ever received a pneumonia vaccine?: Yes *Have you received a flu vaccine this season?: Yes Other Medical History: Denies: Anemia, Blood Transfusion Reaction Other Surgeries: Yes: No Previous Surgery, Cardiac Catheterization, Cardiac Surgery, Cholecystectomy, Colonoscopy, Coronary Stent, Open Heart Surgery, Ureter Stent, Other. No: Pacemaker Amputation: No Fractures: Yes (wrist) - *Social History Last grade of school completed: 9th or 10th Smoking Status: Never smoker Tobacco Type: cigarettes #Yrs smoked (if former smoker): 15 Alcohol Intake: never Alcohol Intake Frequency:: other Substance Use Type: denies use *Occupational Status:: retired Housing: house Household Members: none *Travel in the last 8 weeks: None Family Hx:: Coronary Artery Disease, Heart Attack, Stroke Review of Systems - Review of Systems Review of systems:: pertinent systems reviewed and negative unless documented below Meds Home Medications Medication Instructions Recorded Confirmed Type atorvastatin 40 mg tablet 40 mg PO HS 03/30/19 03/20/22 History aspirin 81 mg tablet,delayed 81 mg PO DAILY 09/21/19 03/20/22 History release carvedilol 12.5 mg tablet 12.5 mg PO DAILY tab 09/21/19 03/20/22 History hydroCHLOROthiazide 25 mg PO DAILY 07/28/20 03/20/22 History [Hydrochlorothiazide] Clopidogrel Bisulfate [Plavix] 75 mg PO DAILY 08/05/20 03/20/22 History Amlodipine Besylate [Amlodipine 10 mg PO DAILY 04/29/21 03/20/22 History 10mg Tab] lisinopriL [Lisinopril] 20 mg PO DAILY 01/03/22 03/20/22 History Pantoprazole Sodium [Protonix 40mg 40 mg PO BID 03/20/22 03/20/22 History tablet] miSOPROStoL [Cytotec 200mcg tablet] 200 mcg PO ACHS 03/20/22 03/20/22 History Allergies Allergy/AdvReac Type Severity Reaction Status Date / Time No Known Allergies Allergy Verified 03/20/22 08:34 Exam I & O for Last 24 hours: Intake & Output 03/17/22 03/18/22 03/19/22 03/20/22 11:59 11:59 11:59 11:59 Weight 235 lb - Constitutional no acute dis
[2022-03-20 08:37] VITALS: BP 139/66; PULSE 63; RESP 17; TEMP 37.1; O2SAT 97
[2022-03-20 09:07] VITALS: O2SAT 97
--- NOTE | 2022-03-20 09:16 | P.PN_ITS ---
[facility] Anesthesia Checklist - Patient Identification Patient Identification: Arm Band - Structural Data Admitted From: Home Planned Operative Procedure/s: egd Consent for Planned Operative Procedure(s) Verified: Yes Verified Documents: Surgical Consent, History and Physical - NPO Status Verified Time NPO: 00:00 - Additional verifications Anesthesia Reactions: No Hx Blood Transfusions: No Blood Transfusion Reaction: No - Airway Assessment C-Spine Mobility Assessed: Yes (mp2) TMJ Mobility Assessed: Yes Dentition: Poor Dentition - Neurological Assessment Level of Consciousness: Awake, Alert - Anesthesia Plan Anesthesia Risk discussed: Yes Anesthesia Plan: Verified ASA Class: III Anesthesia Type: [facility] History I have reviewed the patient's past medical history: Yes Medical History: Reports:: Arrhythmia, Cancer (testicle), Carotid Stenosis, Congestive Heart Failure, Coronary Artery Disease, Cerebrovascular Accident, Hyperlipidemia, Hypertension, Myocardial Infarction, Transient Ischemic Attacks (TIA) Denies:: Diabetes Mellitus Type 1, Diabetes Mellitus Type 2, Internal Pacemaker, MRSA, Seizures *Have you ever received a pneumonia vaccine?: Yes *Have you received a flu vaccine this season?: Yes Other Medical History: Denies: Anemia, Blood Transfusion Reaction Anesthesia experience/problems:: nac Other Surgeries: Yes: Cardiac Catheterization, Cardiac Surgery, Cholecystectomy, Colonoscopy, Coronary Stent, Open Heart Surgery, Ureter Stent, Other. No: Pacemaker Amputation: No Fractures: Yes (wrist) - *Social History Last grade of school completed: 9th or 10th Smoking Status: Never smoker Tobacco Type: cigarettes #Yrs smoked (if former smoker): 15 Alcohol Intake: never Alcohol Intake Frequency:: other Substance Use Type: denies use *Occupational Status:: retired Housing: house Household Members: none *Travel in the last 8 weeks: None Family Hx:: Coronary Artery Disease, Heart Attack, Stroke
[2022-03-20 09:25] VITALS: BP 134/65; PULSE 64; RESP 18; TEMP 36.2; O2SAT 91
--- NOTE | 2022-03-20 09:25 | P.PCN_ITS ---
- Procedure: Date: 03/20/22 Patient Date of :: 1950 Procedure Performed:: Esophagogastroduodenoscopy with biopsies Indications:: Patient presents for followup EGD. He underwent inpatient EGD on 01/05/2022. He is a 71-year-old male from [place], [place] whom I had previously seen for cholecystectomy.? He has a reported history of heart disease, previous myocardial infarction, coronary stenting x8, previous CVA, hypertension, hyperlipidemia, diabetes (diet-controlled) previously on Plavix.? He has recently undergone left total knee arthroplasty.? He states that he was prescribed ibuprofen postoperatively.? He had developed a near syncopal episode at home described as lightheadedness, diaphoresis, shortness of air with associated nausea and chest pain.? He presented to the emergency department due to concerns about cardiac issue.? He underwent work-up in the emergency department including CTA of the chest which was negative for pulmonary embolism.? Cardiac etiology was ruled out.? He was noted to have a hemoglobin of 6.6.? (It appears as though baseline hemoglobin is 14-15).? BUN was 27 with a creatinine of 0.7.? Patient had been transfused 4 units packed red blood cells with appropriate response. He underwent EGD on 01/05/2022. This revealed gastroesophageal junction at 42 cm from incisors, mild diffuse gastropathy, Prepyloric erosive gastritis, and duodenal ulcer x3. Most of these had clean exudate. The most proximal ulcer had some minor oozing but no visible vessel no active bleeding. He was able to be managed ultimately as an outpatient on PPI. Plan was made for follow-up endoscopy to assess for healing of ulcers. Performing Provider:: Kemal Villatoro MD Referring Provider:: Norma Colin Sedation:: MAC sedation Procedure:: Patient was taken to endoscopy procedure room. Adequate intravenous sedation was achieved. Olympus endoscope was inserted via the oropharynx. Esophagus was cannulated. In the distal esophagus there was some linear erosive esophagitis. Gastroesophageal junction was encountered at 42 cm from the incisors. Stomach was cannulated and insufflated. Retroflexion revealed no evidence of any hiatal hernia. There is moderate diffuse gastropathy/gastritis. Gastric antral mucosal biopsy was obtained for CLOtest for H. pylori. Pylorus was traversed. Within the duodenal bulb there was some prominent mildly erythematous slightly indurated mucosa focally in a couple of places consistent with healed ulcers. Biopsies were obtained. Distal duodenum was unremarkable. Gastric biopsy was obtained. Endoscope was withdrawn into the distal esophagus and a couple of gastroesophageal junction biopsies were obtained. A couple biopsies were obtained in the distal esophagus. Stomach was desufflated and the endoscope was withdrawn. Findings:: Focal shallow linear esophagitis distal esophagus Gastroesophageal junction at 42 cm Moderate diffuse gastropathy/gastritis Evidence of healed ulcers Recommendations:: Follow-up on H. pylori status and biopsies. I would maintain proton pump inhibitors given the endoscopic findings. May be able to stop his Cytotec. Complications:: None immediately apparent Estimated blood obtained (mL): 2
[2022-03-20 09:35] VITALS: BP 131/65; PULSE 58; RESP 18; O2SAT 99
[2022-03-20 09:45] VITALS: BP 116/69; PULSE 58; RESP 18; O2SAT 97
[2022-03-20 09:55] VITALS: BP 137/53; PULSE 58; RESP 18; O2SAT 97
== END 2022-03-20 10:00 | disposition home or self-care (01) ==
LOC: OUTP 08:16
PROVIDERS: PCP Nurse Practitioner Family; Visit Provider Surgery
PROC: 0DJ08ZZ Inspection of Upper Intestinal Tract, Via Natural or Artificial Opening Endoscopic (ICD-10-PCS; CPT 43235; principal; 2022-03-20 09:30)
DX: K26.9 Duodenal ulcer, unspecified as acute or chronic, without hemorrhage or perforation (principal); D64.9 Anemia, unspecified; I11.0 Hypertensive heart disease with heart failure; I50.9 Heart failure, unspecified; I65.29 Occlusion and stenosis of unspecified carotid artery; I25.10 Atherosclerotic heart disease of native coronary artery without angina pectoris; E78.5 Hyperlipidemia, unspecified; I25.2 Old myocardial infarction; Z86.73 Personal history of transient ischemic attack (TIA), and cerebral infarction without residual deficits; K21.9 Gastro-esophageal reflux disease without esophagitis
CPT/HCPCS: 43239; 87339; 88305

== ENCOUNTER 2022-04-19 11:31 | Emergency (ER) | payer MEDICARE, SELFPAY ==
[2022-04-19 12:05] VITALS: BP 144/67; PULSE 63; RESP 18; TEMP 36.8; O2SAT 97; BMI 32.1
--- NOTE | 2022-04-19 12:37 | HMH.EDUTC ---
[facility] [place] Disposition Clinical Impression: UTI (urinary tract infection) Qualifiers: Urinary tract infection type: site unspecified Hematuria presence: with hematuria Qualified Code(s): N39.0 - Urinary tract infection, site not specified Disposition: Home, Self-Care Condition on Discharge: Good Instructions: Blood in Urine, DI for Urinary Tract Infection (UTI), DI for Hematuria, Ciprofloxacin Additional Instructions: *Increase fluids. Water not Soda or Tea *Start antibiotic immediately and be sure to take as ordered for the FULL length of time although you should start to see improvement over the next 48 hours *Be SURE to follow up anytime for new or worsening symptoms with your family doctor. AND in 48 hours for urine culture results with your family doctor, if you do not have a doctor then you may call back to the [facility] for urine culture results and further treatment. We do recommend that you choose and establish care with a Primary Care Physician. AND follow up with them in 10-14 days to repeat UA to ensure infection is resolved and blood no longer present *Be sure to let your PCP know that we sent urine cultures from the [facility] so they can follow up to ensure that you area the on the correct antibiotic Call your doctor office and make appointment for 48 hours (2 days from today) to follow up and get the results of your urine culture and further treatment Follow up with your Family Doctor if no improvement or any worsening of symptoms Call and make appointment and follow up with Urology Dr Doran for further evaluation Straight to ER if any life threatening symptoms Watch for signs of low blood sugar and if noticed follow up immediately Prescriptions: Ciprofloxacin HCl [Cipro 500mg Tab] 500 mg PO BID 10 Days #20 tab Transmission Status: Pending to [id number] Referrals: Norma Colin [Primary Care Provider] - As needed Loy Doran MD [Staff Physician] - As needed (Call office for appointment) Time of Disposition: 13:23 Medical Decision Making - Aurelio Inquiry Pt receiving controlled substance: No Aurelio was queried for this patient: No Vital Signs: 04/19/22 12:05 Temperature 98.2 F Temperature Source Oral Pulse Rate [Left Brachial] 63 Respiratory Rate 18 Blood Pressure [Left Arm] 144/67 H Blood Pressure Mean [Left Arm] 92 Blood Pressure Source [Left Arm] Automatic Cuff Blood Pressure Position [Left Arm] Sitting 02 Sat by Pulse Oximetry 97 Oxygen Delivery Method Room Air - Lab Data Lab results reviewed: Yes: I reviewed the patient's lab results. Lab Results 04/19/22 12:10: Urine Color Red, Urine Appearance Cloudy, Urine pH 7.0, Ur Specific Yale 1.010, Urine Protein 3+, Urine Glucose (UA) Negative, Urine Ketones Trace, Urine Blood 3+, Urine Nitrate Positive, Urine Bilirubin Negative, Urine Urobilinogen 1.0, Ur Leukocyte Esterase 1+ A, Urine RBC Tntc, Urine WBC Occasional, Ur Squamous Epith Cells 5-10, Urine Bacteria 1+ Orders (Tests/Meds): ORDERS Category Date Time Status Urine Culture Stat Micro 04/19/22 12:10 Received Medical Decision Narrative: Discussed with patient about transfer to the ED for more extensive work up and patient declined Patient educated to watch for signs of low blood sugar while taking this medication and he verbalized understanding [facility] [place] HPI - General Stated complaint: possible uti Time Seen by Provider: 04/19/22 12:37 Mode of Arrival: Ambulatory Source of Information: Patient Limitations: No Limitations Description of Symptoms (Recalled from Triage Doc. by RN): PATIENT C/O BLOOD IN URINE SINCE LAST NIGHT HEENT Symptoms (Recalled from RN notes): No Resp Symptoms (Recalled from RN notes): No Skin Symptoms (Recalled from RN notes): No MS Symptoms (Recalled from RN notes): No Functional Status (Recalled from RN notes): WNL - History of Present Illness Provider Complaint: Patient states that he started noticing blood in his urine last night States that he is not mcdonnell
[2022-04-19 12:44] LABS: Microscopic, Urine URINE MICROSCOPIC (MICROSCOPIC)
[2022-04-19 12:48] LABS: Appearance,Urine CLOUDY (Clear); Bilirubin,Urine Negative (Negative); Blood, Urine 3+ (Negative); Glucose,Urine (UA) Negative (Negative); Ketones,Urine TRACE (Negative); Leukocyte Esterase,Urine 1+ (Negative); Nitrate,Urine POSITIVE (Negative); Protein,Urine 3+ (Negative)
[2022-04-19 12:56] LABS: Color,Urine RED (Yellow)
[2022-04-19 12:59] LABS: RBC,Urine TNTC #/hpf (0-3)
[2022-04-19 13:02] LABS: Bacteria,Urine 1+ /lpf; WBC,Urine Occasional #/hpf (0-3)
[2022-04-19 13:27] VITALS: BP 144/67; PULSE 63; RESP 18; TEMP 36.8; O2SAT 97
== END 2022-04-19 13:30 | disposition home or self-care (01) ==
PROVIDERS: Emergency Provider Nurse Practitioner; PCP Nurse Practitioner Family
DX: N39.0 Urinary tract infection, site not specified (principal)
CPT/HCPCS: 81001; 87086; 87088; 87186; 99212; G0463

== ENCOUNTER → 2022-05-07 09:50 | Outpatient (CLI) | payer MEDICARE, SELFPAY ==
[2022-05-08 11:16] LABS: PSA, Free 0.81 ng/mL; Prostate Specific Ag 2.9 ng/mL (0.0-4.0)
== END ==
PROVIDERS: PCP Nurse Practitioner Family; Visit Provider Urology
DX: N40.1 Benign prostatic hyperplasia with lower urinary tract symptoms (principal); Z12.5 Encounter for screening for malignant neoplasm of prostate
CPT/HCPCS: 36415; 84153; 84154

== ENCOUNTER → 2022-12-30 06:16 | Outpatient (CLI) | payer MEDICARE, SELFPAY | LOC: RAD 06:17 | PROVIDERS: PCP Nurse Practitioner Family; Visit Provider Nurse Practitioner Family | DX: E78.2 Mixed hyperlipidemia (principal); I10 Essential (primary) hypertension; I25.10 Atherosclerotic heart disease of native coronary artery without angina pectoris; I25.2 Old myocardial infarction; R06.02 Shortness of breath; Z95.5 Presence of coronary angioplasty implant and graft | CPT/HCPCS: 78452; 93017; A9502; J2785 ==

== ENCOUNTER 2023-01-13 08:17 | Day surgery (SDC) | payer MEDICARE, SELFPAY ==
[2023-01-13] VITALS (12 sets, daily range): BP systolic 121–175; BP diastolic 55–84; PULSE 48–61; RESP 16–20; O2SAT 90–98; BMI 33.6
--- NOTE | 2023-01-13 07:07 | IR_ITS ---
APPROVED REPORT Patient Location: Outpatient Transfer Clerk: YANN Blood RT (R) PROCEDURES Left heart catheterization Left ventriculogram Selective coronary angiogram INDICATION Known coronary artery disease, Abnormal stress test, Typical angina pectoris Informed consent was obtained prior to the procedure. COMPLICATIONS None Estimated Blood Loss: Less than 10 ML TECHNIQUE One percent lidocaine used to anesthetize the right anterior aspect of the wrist. The right radial artery was accessed via the Seldinger technique. A 6 [place]ian sheath was placed in the right radial artery. 150 mg magnesium sulfate, 800 mcg of nitroglycerin, 1mg Lidocaine and 5000 U Heparin were given through the arterial sheath. The papa catheter was also used to perform left heart catheterization, left ventriculogram and selective coronary angiogram. At the end of the procedure the sheath was removed good hemostasis was achieved using Traclet band, patient was transferred to the postop holding area in stable condition. ANGIOGRAPHIC RESULTS The left main artery Is ostially normal and has a distal 20 to 30% tapering The left anterior descending artery Has a proximal 20% stenosis followed by a proximal LAD stent which is widely patent with minimal in-stent restenosis. The remaining LAD has mild 10 to 20% stenoses The circumflex artery Is nondominant gives rise to a large ramus intermedius which has mild 10 to 20% proximal stenoses with an additional 30% stenosis. The circumflex artery itself is small and has 20 to 30% diffuse disease The right coronary artery Large dominant vessel and has stents in the proximal mid and distal segment which actually extend into a large posterior descending artery. The proximal portion of the stent is widely patent while the midportion has concentric 30% in-stent restenosis. Distally there is diffuse 30% in-stent restenosis. The posterior descending is widely patent. The posterior lateral ventricular branch is proximally subtotally occluded and fills nicely via [id number] collaterals The CHAPARRO ventriculogram reveals Normal 60% The left ventricular end-diastolic pressure 10 mmHg IMPRESSION Coronary disease as described above Chronically occluded posterior lateral branch which fills via a nice [id number] collateral Normal ejection fraction Normal left ventricular NaSal pressure PLAN 1. Maximize antianginal medications 2. Add Ranexa 500 twice daily and uptitrate to 1000 twice daily 3. Aggressive risk factor modification 4. Continue with cardiac rehabilitation 5. LDL less than 55 to be achieved with high intensity statin Electronically signed by : Cesar Choi MD 01/13/2023 13:28:56
[2023-01-13 08:52] LABS: Basophils # 0.1 K/mm3 (0-0.2); Basophils % 1.1 % (0.1-2.0); Eosinophils # 0.3 K/mm3 (0.0-0.4); Eosinophils % 4.5 % (0.1-12.0); Hematocrit 45.5 % (42.0-52.0); Hemoglobin 14.9 g/dL (14.1-18.0); Lymphocytes # 1.3 K/mm3 (0.7-4.5); Lymphocytes % 21.2 % (10-50); Mean Corpuscular HGB Conc 32.9 g/dL (31.8-35.4); Mean Corpuscular Hemoglobin 28.2 pg (27.0-31.2); Mean Corpuscular Volume 85.7 fl (80-94); Mean Platelet Volume 7.9 fl (7.4-10.4); Monocytes # 0.5 K/mm3 (0.1-1.0); Monocytes % 7.7 % (1.7-9.3); Neutrophils % 65.6 % (37.0-80.0); Platelet Count 263 K/mm3 (142-424); White Blood Count 6.1 K/mm3 (4.8-10.8)
[2023-01-13 08:56] LABS: Chloride 98 mmol/L (98-107); Sodium 139 mmol/L (136-145)
[2023-01-13 08:59] LABS: Blood Urea Nitrogen 12 mg/dl (9-20); Calcium 9.4 mg/dl (8.4-10.2); Carbon Dioxide 27 mmol/L (22.0-30.0); Creatinine Clearance Estimated 106 mL/min (50-200); Estimated Glomerular Filt Rate 83 ml/min (>60); GFR (African American) 101 ML/MIN (>60); Glucose 132 mg/dl (74-100)
== END 2023-01-13 13:57 | disposition home or self-care (01) ==
PROVIDERS: PCP Nurse Practitioner Family; Visit Provider Internal Medicine
DX: R94.39 Abnormal result of other cardiovascular function study (principal); I25.118 Atherosclerotic heart disease of native coronary artery with other forms of angina pectoris; I25.82 Chronic total occlusion of coronary artery; Z79.899 Other long term (current) drug therapy; Z87.891 Personal history of nicotine dependence; I25.2 Old myocardial infarction; I10 Essential (primary) hypertension; E78.5 Hyperlipidemia, unspecified
CPT/HCPCS: 80048; 85025; 93458; 99152; C1725; C1769; J1644; Q9967

== ENCOUNTER 2023-08-28 08:44 | Emergency (ER) | payer MEDICARE, SELFPAY ==
[2023-08-28 08:49] VITALS: BP 141/61; PULSE 58; RESP 18; O2SAT 95; BMI 32.8
[2023-08-28 09:01] VITALS: BP 120/65; PULSE 60; RESP 20; O2SAT 94
--- NOTE | 2023-08-28 09:03 | PC.NURSE ---
DR HOLDER AT BEDSIDE
--- NOTE | 2023-08-28 09:05 | CT_ITS ---
PROCEDURE INFORMATION: Exam: CT Abdomen And Pelvis With Contrast Exam date and time: 08/28/2023 9:52 AM Age: 73 years old Clinical indication: Abdominal pain; Additional info: Ruq pain/tenderness TECHNIQUE: Imaging protocol: Computed tomography of the abdomen and pelvis with contrast. Radiation optimization: All CT scans at this facility use at least one of these dose optimization techniques: automated exposure control; mA and/or kV adjustment per patient size (includes targeted exams where dose is matched to clinical indication); or iterative reconstruction. Contrast material: ISOVUE; Contrast volume: 75 ml; Contrast route: IV; REPORTING DATA: Count of CT and Cardiac NM exams in prior 12 months: This patient has received [address] and 0 known cardiac nuclear medicine studies in the 12 months prior to the current study. COMPARISON: CT ABDOMEN PELVIS W CON 01/05/2022 10:45 AM FINDINGS: Lungs: No consolidation, lung nodules, or pleural effusions. Coronary arteries: Heavy coronary artery calcifications and stents. Liver: No mass. No evidence of fat deposition. No surrounding fluid. Gallbladder and bile ducts: Gallbladder is surgically absent. No biliary ductal dilatation. Pancreas: No masses. No ductal dilation. Spleen: No splenomegaly. No masses or surrounding fluid. Adrenal glands: No mass. Kidneys and ureters: Right kidney has a new 1.5 cm nonenhancing cyst in the interpolar region. 2.2 cm right lower pole cyst is unchanged. Both kidneys have a few subcentimeter nonenhancing cysts that are unchanged. Calcifications in both renal benjamin are atherosclerotic no solid renal masses, calcified stones, or hydroureteronephrosis. Stomach and bowel: No intestinal masses, bowel wall thickening, or abnormal luminal dilatation. Diverticula are present in the sigmoid colon without evidence of diverticulitis. Appendix: No evidence of appendicitis. Intraperitoneal space: No free air. No masses or significant fluid collection. Vasculature: No abdominal aortic aneurysm. No other significant abnormalities. Lymph nodes: Calcified lymph nodes in the left hilum. A 1.6 cm lumbar lymph node at the aortic bifurcation and a 1.3 cm left para-aortic lymph unchanged since 04/29/2021. 1.2 cm para esophageal lymph node is also unchanged. No other lymphadenopathy or enlarging lymph nodes. Urinary bladder: No bladder wall thickening or asymmetric contrast enhancement. Reproductive: Prostate measures 6.5 cm in greatest diameter and causes mass effect upon the floor of the bladder. Bones/joints: Bilateral spondylolysis at L5 with grade 1 anterolisthesis at L5-S1. No acute fractures or focal bone lesions. Soft tissues: No masses or other abnormalities. IMPRESSION: 1. No acute findings or interval changes in the abdomen and pelvis. No abnormalities thought to be a source of right upper quadrant pain. 2. A few retroperitoneal and parasite the M[place]NICA lymph nodes are slightly enlarged by CT criteria but are unchanged since 04/29/2021, most likely a normal variant. 3. New 1.5 cm cyst in the mid right kidney since 01/05/2022. Renal ultrasound is suggested to evaluate for any complicating features. Other benign bilateral kidney cysts are unchanged. 4. Mild diverticulosis in the sigmoid colon without evidence of diverticulitis. 5. Enlarged prostate. COMMENTS: Consistent with the [employer]'s Incidental Findings Committee white paper (J Am Toribio Radiol 2018): Any incidental renal lesion less than 1 cm or classified as too small to characterize, or any incidental cystic renal lesion characterized as simple-appearing, is likely benign. No follow-up imaging is recommended for these lesions per consensus recommendations based on imagin
--- NOTE | 2023-08-28 09:09 | HMH.EDGENADL ---
Discharge Plan Disposition Patient Disposition: Home, Self-Care Condition: Good Prescriptions Prescriptions: New polyethylene glycol 3350 [Miralax] 17 gram/dose powder 17 g PO DAILY Qty: 510 0RF senna 8.6 mg capsule 8.6 mg PO DAILY Qty: 30 0RF No Action aspirin [Adult Low Dose Aspirin] 81 mg tablet,delayed release (DR/EC) 81 mg PO DAILY Hold Instructions: Resume on 01/20/22. atorvastatin 40 mg tablet 40 mg PO HS carvedilol 12.5 mg tablet 12.5 mg PO DAILY hydrochlorothiazide 25 mg tablet 25 mg PO DAILY Jardiance 10 mg tablet 10 mg PO DAILY isosorbide mononitrate 30 mg tablet extended release 24 hr 30 mg PO DAILY Qty: 90 1RF amlodipine 10 MG tablet 10 mg PO DAILY lisinopril 20 MG tablet 20 mg PO DAILY clopidogrel 75 MG tablet 75 mg PO DAILY Hold Instructions: Resume on 01/20/22. Referrals Follow up/Referrals: Norma Colin [Primary Care Provider] - See instructions Activity Restrictions/Add. Instructions Additional Instructions/Restrictions: You were evaluated in the emergency department today. At this time, you are found to have an incidental finding of a right renal cyst, for which I recommend close follow-up with your primary care provider. Your symptoms likely related to stool/gas that are within the right side of your abdomen, so I am providing you with MiraLAX and senna to help with bowel cleanout. If your symptoms get worse or do not improve over the next able days, please return to the emergency department for further evaluation. Follow-up with your primary care provider over the next 3 days. Clinical Impressions Clinical Impression: Right sided abdominal pain, Constipation, Renal cyst Instructions Patient Instructions: DI for Acute Abdominal Pain Discharge ED Provider: Ritika Ackerman General Adult HPI General Chief complaint: Abdominal Pain Stated complaint: right side pain Time Seen by Provider: 08/28/23 08:48 Mode of Arrival: Ambulatory Source of Information: Patient Limitations: No Limitations Description of Symptoms (Recalled from ER Triage Doc. by RN): r sided pain. constant. hurts when you touch it History of Present Illness HPI narrative: This patient is a 73-year-old male with a history of hypertension, hyperlipidemia, CAD, duodenal ulcer, GERD, and prior cholecystectomy presenting to the emergency department for evaluation with concern for right upper quadrant abdominal pain. He notes that it started yesterday at rest. No injuries or strains noted. He states that it is constant, and nothing seems to make it better or worse. He denies any other associated symptoms, such as fevers, chills, chest pain, shortness of breath, nausea, vomiting, changes in bowel movements, changes in urinary output, or other concerns. He has otherwise been well. No medications taken at home for the pain prior to arrival. Related Data Home Medications Medication Instructions Recorded Confirmed atorvastatin 40 mg tablet 40 mg PO HS Cholesterol 03/30/19 05/12/23 aspirin 81 mg tablet,delayed 81 mg PO DAILY heart health 09/21/19 05/12/23 release (Adult Low Dose Aspirin) carvedilol 12.5 mg tablet 12.5 mg PO DAILY Hypertension 09/21/19 05/12/23 clopidogrel 75 mg tablet 75 mg PO DAILY Blood thinner 08/05/20 05/12/23 amlodipine 10 mg tablet 10 mg PO DAILY High blood pressure 04/29/21 05/12/23 lisinopril 20 mg tablet 20 mg PO DAILY GI 01/03/22 05/12/23 hydrochlorothiazide 25 mg tablet 25 mg PO DAILY Fluid 12/10/22 05/12/23 empagliflozin 10 mg tablet 10 mg PO DAILY 05/12/23 05/12/23 (Jardiance) Previous Rx's Medication Instructions Recorded isosorbide mononitrate 30 mg 30 mg PO DAILY #90 tabs 07/23/23 tablet,extended release 24 hr polyethylene glycol 3350 17 17 g PO DAILY #510 grams 08/28/23 gram/dose oral powder (Miralax) sennosides 8.6 mg capsule (senna) 8.6 mg PO DAILY #30 caps 08/28/23 Allergies Allergy/AdvReac Type
--- NOTE | 2023-08-28 09:20 | ECG_ITS ---
APPROVED REPORT Exam: Resting ECG HR:50 bpm ECG Measurements Heart Rate 50 AXES CO 230 P 49 QRSd 122 QRS 42 QT 439 T 12 QTc 413 Conclusion SINUS BRADYCARDIA WITH FIRST DEGREE AV BLOCK MODERATE INTRAVENTRICULAR CONDUCTION DELAY [110+ ms QRS DURATION] ABNORMAL ECG UNCONFIRMED REPORT Electronically signed by : Tuan Fry MD 08/29/2023 07:34:13
[2023-08-28 09:29] LABS: Microscopic, Urine URINE MICROSCOPIC (MICROSCOPIC)
[2023-08-28 09:31] LABS: Chloride 102 mmol/L (98-107); Sodium 138 mmol/L (136-145)
[2023-08-28 09:33] LABS: Blood Urea Nitrogen 20 mg/dl (9-20); Creatinine Clearance Estimated 102 mL/min (50-200); Estimated Glomerular Filt Rate 74 ml/min (>60); GFR (African American) 89 ML/MIN (>60)
[2023-08-28 09:34] LABS: Alanine Aminotransferase 29 U/L (12-78); Albumin Level 4.6 g/dl (3.5-5.0); Albumin/Globulin Ratio 1.4 (1.1-1.8); Alkaline Phosphatase 111 U/L (38-126); Aspartate Amino Transferase 35 U/L (17-59); Bilirubin,Total 0.6 mg/dl (0.2-1.3); Calcium 8.9 mg/dl (8.4-10.2); Carbon Dioxide 29 mmol/L (22.0-30.0); Globulin 3.3 g/dL (1.3-3.2); Glucose 183 mg/dl (74-100); Lipase 167 U/L (23-300); Total Protein,Serum 7.9 g/dl (6.3-8.2)
[2023-08-28 09:34] LABS: Appearance,Urine CLEAR (Clear); Bilirubin,Urine Negative (Negative); Blood, Urine TRACE-I (Negative); Color,Urine YELLOW (Yellow); Glucose,Urine (UA) 3+ (Negative); Ketones,Urine Negative (Negative); Leukocyte Esterase,Urine Negative (Negative); Nitrate,Urine Negative (Negative); Protein,Urine Negative (Negative); Specific Gravity, Urine <= 1.005 (1.005-1.030); Urobilinogen,Urine 0.2 EU/dl (0.2)
[2023-08-28 09:38] LABS: Basophils # 0.1 K/mm3 (0-0.2); Eosinophils # 0.2 K/mm3 (0.0-0.4); Eosinophils % 3.4 % (0.1-12.0); Hematocrit 43.4 % (42.0-52.0); Hemoglobin 14.4 g/dL (14.1-18.0); Lymphocytes # 1.3 K/mm3 (0.7-4.5); Lymphocytes % 24.5 % (10-50); Mean Corpuscular HGB Conc 33.3 g/dL (31.8-35.4); Mean Corpuscular Hemoglobin 28.6 pg (27.0-31.2); Mean Platelet Volume 8.1 fl (7.4-10.4); Monocytes # 0.4 K/mm3 (0.1-1.0); Monocytes % 7.4 % (1.7-9.3); Neutrophils # 3.5 K/mm3 (1.8-7.8); Neutrophils % 63.7 % (37.0-80.0); Platelet Count 249 K/mm3 (142-424); Red Blood Count 5.05 M/mm3 (4.60-6.20); Red Cell Distribution Width 14.4 % (11.5-17.5); White Blood Count 5.5 K/mm3 (4.8-10.8)
--- NOTE | 2023-08-28 09:49 | PC.NURSE ---
pt to ct scan via wheelchair
[2023-08-28 09:52] LABS: Bacteria,Urine Trace /lpf; RBC,Urine Occasional #/hpf (0-3); Squamous Epithelial Cell,Urine Occasional #/hpf (0-5)
--- NOTE | 2023-08-28 11:16 | PC.NURSE ---
pt was given a diet mt dew and setting at bs no other needs
[2023-08-28 11:27] VITALS: BP 142/68; PULSE 60; RESP 20; O2SAT 94
[2023-08-28 11:42] VITALS: BP 154/65; PULSE 60; RESP 18; TEMP 36.6; O2SAT 99
[2023-08-28 11:45] VITALS: BP 154/65; PULSE 60; RESP 18; TEMP 36.6; O2SAT 94
== END 2023-08-28 11:44 | disposition home or self-care (01) ==
PROVIDERS: Emergency Provider Emergency Medicine; PCP Nurse Practitioner Family
DX: R10.11 Right upper quadrant pain (principal); K59.00 Constipation, unspecified; N28.1 Cyst of kidney, acquired; I10 Essential (primary) hypertension; E78.5 Hyperlipidemia, unspecified; I25.118 Atherosclerotic heart disease of native coronary artery with other forms of angina pectoris; R00.1 Bradycardia, unspecified; I44.0 Atrioventricular block, first degree
CPT/HCPCS: 74177; 80053; 81001; 83690; 85025; 93005; 96374; 96375; 99285; J0131; Q9967

== ENCOUNTER 2023-09-27 09:46 | Observation (INO) | payer MEDICARE, SELFPAY ==
[2023-09-27] VITALS (12 sets, daily range): BP systolic 122–139; BP diastolic 57–69; PULSE 48–60; RESP 16–20; TEMP 36.4–36.6; O2SAT 92–97; BMI 32.1; BMI 31.1
--- NOTE | 2023-09-27 09:56 | XR_ITS ---
FINAL REPORT CLINICAL HISTORY: Shortness of breath COMPARISON: 01/03/2022 FINDINGS: A single portable view of the chest was obtained. The heart size and pulmonary vascularity are within normal limits. The mediastinum is within normal limits. Mild right base opacities likely represent atelectasis or pneumonia. The bony thorax is intact. IMPRESSION: Mild right base opacities, likely atelectasis or pneumonia. Reviewed, Interpreted and Dictated by Kemal Rodriguez III, MD Transcribed by Anupama Nolasco Authenticated and [facility]
--- NOTE | 2023-09-27 09:56 | CT_ITS ---
FINAL REPORT CLINICAL HISTORY: syncope, amnesia, blood thinners COMPARISON: None FINDINGS: Axial images of the head were obtained without contrast. Coronal reformatted images were also obtained.This study was performed with techniques to keep radiation doses as low as reasonably achievable (ALARA). Individualized dose reduction techniques using automated exposure control or adjustment of mA and/or kV according to the patient's size were employed. Chronic left periventricular lacunar infarct is noted. There is no evidence of intracranial hemorrhage or mass. The ventricular size is within normal limits. There is no evidence of shift of the midline structures. No abnormal extra axial fluid collection is identified. No skull abnormality is seen on the bone window images. IMPRESSION: No acute intracranial abnormality. Reviewed, Interpreted and Dictated by Kemal Rodriguez III, MD Transcribed by Anupama Nolasco Authenticated and [facility]
--- NOTE | 2023-09-27 09:57 | ECG_ITS ---
APPROVED REPORT Exam: Resting ECG HR:45 bpm ECG Measurements Heart Rate 45 AXES GA 237 P 46 QRSd 119 QRS 26 QT 492 T 6 QTc 448 Conclusion SINUS BRADYCARDIA WITH FIRST DEGREE AV BLOCK MODERATE INTRAVENTRICULAR CONDUCTION DELAY [110+ ms QRS DURATION] ABNORMAL ECG UNCONFIRMED REPORT Electronically signed by : Tuan Fry MD 09/27/2023 20:17:05
--- NOTE | 2023-09-27 09:58 | HMH.EDGENADL ---
Discharge Plan Disposition Patient Disposition: Admitted Chief Complaint: Weakness Prescriptions Prescriptions: No Action aspirin [Adult Low Dose Aspirin] 81 mg tablet,delayed release (DR/EC) 81 mg PO DAILY Hold Instructions: Resume on 01/20/22. atorvastatin 40 mg tablet 40 mg PO HS carvedilol 12.5 mg tablet 12.5 mg PO DAILY hydrochlorothiazide 25 mg tablet 25 mg PO DAILY Jardiance 10 mg tablet 10 mg PO DAILY isosorbide mononitrate 30 mg tablet extended release 24 hr 30 mg PO DAILY Qty: 90 1RF amlodipine 10 MG tablet 10 mg PO DAILY lisinopril 20 MG tablet 20 mg PO DAILY clopidogrel 75 MG tablet 75 mg PO DAILY Hold Instructions: Resume on 01/20/22. polyethylene glycol 3350 [Miralax] 17 gram/dose powder 17 g PO DAILY Qty: 510 0RF senna 8.6 mg capsule 8.6 mg PO DAILY Qty: 30 0RF Clinical Impressions Clinical Impression: Syncope, Amnesia, Bradycardia, Generalized weakness Discharge ED Provider: Lei Rapp General Adult HPI General Chief complaint: Weakness Stated complaint: weakness Time Seen by Provider: 09/27/23 09:54 History of Present Illness HPI narrative: Patient is a 73-year-old male brought into the emergency department after syncopal episode. His daughter who is at the bedside provides history as well as the patient and EMS. EMS was told that he had had congestion and they reported a fever but patient denies this as well as his daughter. He denies any cough objective fever or any other symptoms other than nasal congestion that preceded this by several days. States he was in his normal state of health this morning he was going to shave next and he knew he was awake laying across a toilet. His daughter provides additional history she states that he called her and all that he was able to say was help. She subsequently called EMS who got to the patient brought him into the emergency department. They did hang a liter of fluids stated that he had possibly some diarrhea 800 cc of fluid had been administered prior to arrival. Patient currently denies any pain and other than generalized weakness denies any other complaints at the moment. He does not recall any other events preceding this syncopal episode and does not recall the conversation he had with his daughter asking for help. Related Data Home Medications Medication Instructions Recorded Confirmed atorvastatin 40 mg tablet 40 mg PO HS Cholesterol 03/30/19 05/12/23 aspirin 81 mg tablet,delayed 81 mg PO DAILY heart health 09/21/19 05/12/23 release (Adult Low Dose Aspirin) carvedilol 12.5 mg tablet 12.5 mg PO DAILY Hypertension 09/21/19 05/12/23 clopidogrel 75 mg tablet 75 mg PO DAILY Blood thinner 08/05/20 05/12/23 amlodipine 10 mg tablet 10 mg PO DAILY High blood pressure 04/29/21 05/12/23 lisinopril 20 mg tablet 20 mg PO DAILY GI 01/03/22 05/12/23 hydrochlorothiazide 25 mg tablet 25 mg PO DAILY Fluid 12/10/22 05/12/23 empagliflozin 10 mg tablet 10 mg PO DAILY 05/12/23 05/12/23 (Jardiance) Previous Rx's Medication Instructions Recorded isosorbide mononitrate 30 mg 30 mg PO DAILY #90 tabs 07/23/23 tablet,extended release 24 hr polyethylene glycol 3350 17 17 g PO DAILY #510 grams 08/28/23 gram/dose oral powder (Miralax) sennosides 8.6 mg capsule (senna) 8.6 mg PO DAILY #30 caps 08/28/23 Allergies Allergy/AdvReac Type Severity Reaction Status Date / Time ranolazine [From Ranexa] AdvReac Severe Verified 05/12/23 09:24 [facility] Disclaimer: The information contained in this section may have been updated after the patient was seen, as this information can be updated by other users. Medical History Abnormal result of cardiovascular function study Typical angina Family History Other No significant family history Social History Smoking Status: Former smoker tobacco type: cigarettes second hand exposure: No alcohol intake: never substance use type: denies use current occupational status: retired and other Travel in the last 8 weeks: None household members: none housing: house current occupational exposures/hazards: No caffeine: Yes ROS Obtained: Yes All systems reviewed & no additional complaints except as documented Physical Exam General General appearance: alert Head Head exam: atraumatic and normocephalic Respiratory Respiratory exam: Present normal lung sounds bilaterally; Absent respiratory distress Cardiovascular Cardiovascular exam: Present normal rhythm and bradycardia Abdominal Exam Abdominal exam: Present soft; Absent distention or tenderness Neurological Exam Neurological exam: Present alert, oriented X3 and CN II-XII intact; Absent motor sensory deficit Medical Decision Making Aurelio Inquiry Pt receiving controlled substance: No Vital Signs: 09/27/23 09:46 09/27/23 11:00 Temperature 97.6 F Temperature Source Oral Pulse Rate 49 L Pulse Rate [Right] 49 L Respiratory Rate 20 Blood Pressure 127/64 Blood Pressure [Right Arm] 127/60 Blood Pressure Mean [Right Arm] 82 Blood Pressure Source [Right Arm] Automatic Cuff 02 Sat by Pulse Oximetry 94 L 95 Oxygen Delivery Method Room Air Nasal Cannula Oxygen Flow Rate (LPM) 2 Lab Data Lab results reviewed: Yes I reviewed the patient's lab results. Lab Results 09/27/23 09:45: WBC 6.7, RBC 5.16, Hgb 14.8, Hct 45.0, MCV 87.3, MCH 28.7, MCHC 32.9, RDW 14.8, Plt Count 223, MPV 7.9, Neut % (Auto) 74.2, Lymph % (Auto) 16.9, [place] % (Auto) 5.8, Eos % (Auto) 2.3, Baso % (Auto) 0.7, Neut # (Auto) 4.9, Lymph # (Auto) 1.1, [place] # (Auto) 0.4, Eos # (Auto) 0.2, Baso # (Auto) 0.1, PT 11.9, INR 1.11 H, APTT 25.7, Sodium 138, Potassium 4.1, Chloride 104, Carbon Dioxide 27, Anion Gap 11.1, BUN 17, Creatinine 1.00, Estimated Creat Clear 100, Estimated GFR 74, Est GFR ( Amer) 89, Glucose 148 H, Calcium 8.2 L, Magnesium 2.1, Total Bilirubin 0.6, AST 31, ALT 29, Alkaline Phosphatase 90, Troponin I < 0.01, NT-Pro-B Natriuret Pep 72.1, Total Protein 6.9, Albumin 3.8, Globulin 3.1, Albumin/Globulin Ratio 1.2, TSH 1.61 09/27/23 09:55: SARS-CoV-2 (PCR) Not detected, Influenza A Untype (PCR) Not detected, Influenza Type B (PCR) Not detected 09/27/23 09:45 09/27/23 09:45 Orders (Tests/Meds): ORDERS Category Date Time Status CT head/brain wo con Stat Cat Scan 09/27/23 09:56 Completed CXR --portable [XR chest portable] Stat Exams 09/27/23 09:56 Completed POCUS Point of Care (ER Only) Stat Exams 09/27/23 09:55 Taken BNP [Brain Natriuretic Peptide] Stat Lab 09/27/23 09:45 Completed CBC w/Auto Diff [Complete Blood Count Auto Diff] Stat Lab 09/27/23 09:45 Completed CMP [Comprehensive Metabolic Panel] Stat Lab 09/27/23 09:45 Completed Magnesium Stat Lab 09/27/23 09:45 Completed PT/PTT Stat Lab 09/27/23 09:45 Completed Rapid PCR Covid and Flu A/B Stat Lab 09/27/23 09:55 Completed TSH [Thyroid Stimulating Hormone] Stat Lab 09/27/23 09:45 Completed Trop I [Troponin I] Stat Lab 09/27/23 09:45 Completed Troponin I Q3H Lab 09/27/23 13:00 Ordered Troponin I Q3H Lab 09/27/23 16:00 Ordered Medical Decision Narrative: EKG performed which I first interpreted shows a ventricular rate of 45 sinus bradycardia with first-degree AV block DE interval of 237 no dropped P waves noted no acute ischemic changes noted mild interventricular conduction delay with a QRS of 119 no specific block noted normal axis overall nondiagnostic from emergency standpoint. Patient is a 73-year-old gentleman presents today with unheralded syncopal episode concerning highly for an arrhythmia. He denies any significant symptoms at the moment including any chest pain or any pain anywhere he is amnestic to this event and given the fact that he is on antiplatelet agents we will get a CT scan of his head to make sure he did not have any significant injury with the fall. Otherwise he does not appear to be septic he is afebrile here has not had a fever at home has no respiratory complaints at the moment denies any other focal symptoms of an infectious process. Other things in the differential could be worsening of his coronary disease and ischemic cardiomyopathy and associated heart failure. Electrolyte abnormalities dehydration etc. Will do a limited bedside ultrasound and will reassess shortly. Reassessment 1138 patient still profoundly weak but nonfocal no other episodes of any other significant arrhythmia while in the emergency department. CT scan performed of his head which I personally interpreted shows no acute intracranial abnormality this is consistent with radiology read as well. Labs largely unremarkable first troponin is negative. Chest x-ray performed which I personally interpreted shows no acute pathology. COVID and flu are negative. No evidence of sepsis. Of note patient did state that his primary care doctor recently told him that he had only 1 year to live and that he had pulmonary hypertension. There is no evidence of this having been worked up and has had no evidence of diastolic dysfunction or any significant concern for that from an echo standpoint he is never had a right heart cath that he is aware of this has not been documented he has been followed by our business systems administrator in the past with stress test as well as heart cath. So not sure where this diagnostic concern came from but I see no evidence of pulmonary hypertension in this patient. I did offer them close outpatient follow-up with cardiology or admission for observation and telemetry monitoring with probable cardiology consultation and they opted for the latter. I spoke with Dr. Denys Robledo with [facility] medicine who agreed to accept the patient for further evaluation and treatment. Procedures Miscellaneous Procedure Procedure Performed: Limited cardiac ultrasound Indication: Syncope Identified structures: The heart was visualized in the parasternal long axis, parastenal short axis, apical four chamber and subxyphiod views. The IVC was visualized in the short axis and long axis at its entry into the right atrium. Findings: No evidence of moderate or severely depressed LVEF no significant right heart strain no pericardial effusion Impression: Normal limited emergency bedside cardiac ultrasound Images were sent to permanent archive The study was technically adequate CPT: 83074-02 This study was performed by me, and I personally interpreted all images/videos. Based on my clinical judgement, these images were adequate and did not necessitate further imaging. Critical Care Critical Care Time Critical Care Time: No
[2023-09-27 10:06] LABS: Coronavirus 19, PCR Not Detected (NotDetected); Influenza A, PCR Not Detected (NotDetected); Influenza B, PCR Not Detected (NotDetected)
[2023-09-27 10:10] LABS: Basophils # 0.1 K/mm3 (0-0.2); Basophils % 0.7 % (0.1-2.0); Eosinophils # 0.2 K/mm3 (0.0-0.4); Eosinophils % 2.3 % (0.1-12.0); Hemoglobin 14.8 g/dL (14.1-18.0); Lymphocytes # 1.1 K/mm3 (0.7-4.5); Lymphocytes % 16.9 % (10-50); Mean Corpuscular HGB Conc 32.9 g/dL (31.8-35.4); Mean Corpuscular Hemoglobin 28.7 pg (27.0-31.2); Mean Corpuscular Volume 87.3 fl (80-94); Mean Platelet Volume 7.9 fl (7.4-10.4); Monocytes # 0.4 K/mm3 (0.1-1.0); Monocytes % 5.8 % (1.7-9.3); Neutrophils # 4.9 K/mm3 (1.8-7.8); Neutrophils % 74.2 % (37.0-80.0); Platelet Count 223 K/mm3 (142-424); Red Blood Count 5.16 M/mm3 (4.60-6.20); Red Cell Distribution Width 14.8 % (11.5-17.5); White Blood Count 6.7 K/mm3 (4.8-10.8)
--- NOTE | 2023-09-27 10:11 | PC.NURSE ---
patient alert and oriented times 4 expressed wishes to be DNR.
[2023-09-27 10:18] LABS: Activated Partial Thrombo Time 25.7 seconds (22.8-30.6); INR 1.11 (0.9-1.1); Prothrombin Time 11.9 seconds (10.1-12.5)
[2023-09-27 10:20] LABS: Alanine Aminotransferase 29 U/L (12-78); Albumin Level 3.8 g/dl (3.5-5.0); Albumin/Globulin Ratio 1.2 (1.1-1.8); Alkaline Phosphatase 90 U/L (38-126); Anion Gap 11.1 mEq/L (5-15); Aspartate Amino Transferase 31 U/L (17-59); Bilirubin,Total 0.6 mg/dl (0.2-1.3); Blood Urea Nitrogen 17 mg/dl (9-20); Calcium 8.2 mg/dl (8.4-10.2); Carbon Dioxide 27 mmol/L (22.0-30.0); Chloride 104 mmol/L (98-107); Creatinine Clearance Estimated 100 mL/min (50-200); Estimated Glomerular Filt Rate 74 ml/min (>60); GFR (African American) 89 ML/MIN (>60); Globulin 3.1 g/dL (1.3-3.2); Glucose 148 mg/dl (74-100); Magnesium 2.1 mg/dl (1.6-2.3); Potassium 4.1 mmoL/L (3.5-5.1); Sodium 138 mmol/L (136-145); Total Protein,Serum 6.9 g/dl (6.3-8.2)
--- NOTE | 2023-09-27 10:26 | PC.NURSE ---
pt to ct
--- NOTE | 2023-09-27 10:36 | PC.NURSE ---
PT returned from RAD
[2023-09-27 10:43] LABS: NT Pro Brain Natriuretic Pep. 72.1 pg/mL (0-125)
[2023-09-27 10:46] LABS: Troponin I < 0.01 ng/ml (0.00-0.034)
[2023-09-27 11:04] LABS: Thyroid Stimulating Hormone 1.61 uIU/mL (0.465-4.68)
--- NOTE | 2023-09-27 11:41 | PC.NURSE ---
Care management notified of admission.
--- NOTE | 2023-09-27 12:00 | PC.NURSE ---
Rounded on pt. No needs voiced at this time. Call light within reach.
--- NOTE | 2023-09-27 12:11 | HMH.PHAINT1 ---
Pharmacy Intervention Comments: MEDICATION RECONCILIATION COMPLETED ON PATIENT USING EXTERNAL FILL HISTORY FROM PHARMACY AND LIST FROM CARDIOLOGY OFFICE. -LOULOU ARMENDARIZ, LISED
--- NOTE | 2023-09-27 12:40 | PC.NURSE ---
Rounded on pt. No needs voiced at this time. Call light within reach.
--- NOTE | 2023-09-27 12:40 | PC.NURSE ---
received report from Joanie WISDOM
--- NOTE | 2023-09-27 12:40 | PC.NURSE ---
Report called to ARTIS Adames
--- NOTE | 2023-09-27 12:54 | PC.NURSE ---
LAB at BS to drawn second trop
--- NOTE | 2023-09-27 13:22 | PC.NURSE ---
PT GOING UP FOR ADMISSION
--- NOTE | 2023-09-27 13:25 | PC.NURSE ---
arrived by w/c from ED
[2023-09-27 13:41] LABS: Troponin I < 0.01 ng/ml (0.00-0.034)
--- NOTE | 2023-09-27 14:42 | CA_ITS ---
APPROVED REPORT EXAM: Comprehensive 2D, Doppler, and color-flow Echocardiogram Synthetic Staple Extruder: Val [place] RDCS Ht: 5 ft 11 in Wt: 223lbs BSA: 2.21 BP: 127/60 mmHg Indications: syncope 2D Dimensions Left Atrium 4.30 cm M: 3.0 - 4.0 LA Volume 91.40 mL LVOT 2.00 cm (M/F) 1.5-2.5 LA Volume Index 41.36 mL/m2 (M/F) 16-34 EF AP4 60.60 % GL Strain -16.5 % M-Mode Dimensions RVDd 3.71 cm (0.9-2.6) LVDd 5.54 cm (3.5-5.7) Ao Diam 3.28 cm (2.0-3.7) LVDs 4.05 cm (3.5-5.7) IVSd 1.45 cm (0.6-1.1) PWd 1.11 cm (0.6-1.1) EF (Teich) 51.90% FS 26.90% EDV (Teich) 149.90 mL ESV (Teich) 72.10 mL LV Diastology E Decel Time 233 (160-240 msec) E/A Ratio 1.0 MED E' 5.4 (>= 7 cm/sec) E'/MED E' Ratio 11.83 (<= 14) LAT E' 6.1 (>= 10 cm/sec) E/LAT E' Ratio 10.48 (<= 14) Mitral Valve MV E Max Bao. 64.0 (40-130 cm/s) MV A Velocity 63.0 (40-130 cm/s) E/A Ratio 1.01 MV Decel. Time 233 (160-240 ms) Left Ventricle The left ventricle is normal size. The left ventricular systolic function is normal. The left ventricular ejection fraction is within the normal range. There is increased LV wall thickness. Proximal septal thickening is noted. There is normal LV segmental wall motion. Diastolic function is indeterminate. LVEF is 60%. Right Ventricle The right ventricle is mildly dilated. The right ventricular systolic function is normal. Atria The left atrium is mildly dilated. The right atrium is mildly dilated. There is no Doppler evidence of interatrial shunt. Aortic Valve The aortic valve is mildly thickened. There is no aortic valvular stenosis. No aortic regurgitation is present. Mitral Valve The mitral valve leaflets are mildly thickened. No evidence of mitral valve stenosis. Trace mitral regurgitation. Tricuspid Valve The tricuspid valve leaflets are thin and pliable. Mild tricuspid regurgitation. RVSP is 20-25 mmHg. Pulmonic Valve The pulmonary valve is normal in structure. Trace pulmonic regurgitation. Great Vessels The aortic root is normal in size. The ascending aorta is normal in size. IVC is normal in size and collapses >50% with inspiration. Pericardium There is no pericardial effusion. Other Information Study Quality: Fair Conclusion Normal biventricular systolic function. Mild RV dilation. Mild TR. Electronically signed by : Rosibel Song MD 09/29/2023 03:41:17
--- NOTE | 2023-09-27 14:53 | P.CONCA_ITS ---
History of Present Illness History of Present Illness Consult date: 09/27/23 Requesting physician: Brian Robledo Chief complaint: syncope History of present illness: 73-year-old white male with past medical history of coronary artery disease with medical management [facility] 2022 and history of sinus bradycardia with a first- degree AV block presented to emergency department today with complaints of syncope. Patient reports he has not felt well the last few days with generalized symptoms of fatigue, was in the bathroom this morning getting ready to shave and the next thing he remembers is waking up on the floor. Patient denies symptoms prior to syncope such as chest pain, palpitations or shortness of breath. Upon presentation to emergency department EKG showed sinus bradycardia with a first-degree AV block with a heart rate of 45. Labs are as follow: WBC 6.7, hemoglobin 14.8, platelet count 223, sodium 138, potassium 4.1, creatinine 1, and serial troponins negative. CT head negative for acute process. Chest x-ray shows mild right base opacities likely atelectasis or pneumonia. Patient was admitted for further evaluation of syncope and sinus bradycardia. Currently patient is resting comfortably denies symptoms. [facility] Disclaimer: The information contained in this section may have been updated after the patient was seen, as this information can be updated by other users. Medical History (Updated 09/27/23 @ 14:59 by Lexi Smiley APRN) Abnormal result of cardiovascular function study H/O Legionnaire's disease H/O testicular cancer History of left heart catheterization ([facility]) History of stroke Typical angina Surgical History H/O heart artery stent History of cholecystectomy History of knee replacement Family History Other No significant family history Social History (Updated 09/27/23 @ 13:59 by Roxy Hunt RN) Smoking Status: Former smoker tobacco type: cigarettes second hand exposure: No alcohol intake: never substance use type: denies use current occupational status: retired and other Travel in the last 8 weeks: None household members: none housing: house current occupational exposures/hazards: No caffeine: Yes Review of Systems Review of Systems Review of systems:: pertinent systems reviewed and negative unless documented below *Cardiovascular Comments: Syncope Exam Data for Last 24 hours Vital signs and Labs for Last 24 Hours: Temp Pulse Resp BP Pulse Ox O2 Del Method O2 Flow Rate 97.5 F L 49 L 18 128/61 97 Nasal Cannula 2 09/27/23 13:25 09/27/23 13:25 09/27/23 13:25 09/27/23 13:25 09/27/23 13:25 09/27/23 13:25 09/27/23 13:25 Laboratory Results - last 24 hr 09/27/23 09:45: WBC 6.7, RBC 5.16, Hgb 14.8, Hct 45.0, MCV 87.3, MCH 28.7, MCHC 32.9, RDW 14.8, Plt Count 223, MPV 7.9, Neut % (Auto) 74.2, Lymph % (Auto) 16.9, [place] % (Auto) 5.8, Eos % (Auto) 2.3, Baso % (Auto) 0.7, Neut # (Auto) 4.9, Lymph # (Auto) 1.1, [place] # (Auto) 0.4, Eos # (Auto) 0.2, Baso # (Auto) 0.1, PT 11.9, INR 1.11 H, APTT 25.7, Sodium 138, Potassium 4.1, Chloride 104, Carbon Dioxide 27, Anion Gap 11.1, BUN 17, Creatinine 1.00, Estimated Creat Clear 100, Estimated GFR 74, Est GFR ( Amer) 89, Glucose 148 H, Calcium 8.2 L, Magnesium 2.1, Total Bilirubin 0.6, AST 31, ALT 29, Alkaline Phosphatase 90, Troponin I < 0.01, NT-Pro-B Natriuret Pep 72.1, Total Protein 6.9, Albumin 3.8, Globulin 3.1, Albumin/Globulin Ratio 1.2, TSH 1.61 09/27/23 09:55: SARS-CoV-2 (PCR) Not detected, Influenza A Untype (PCR) Not detected, Influenza Type B (PCR) Not detected 09/27/23 12:56: Troponin I < 0.01 I & O for Last 24 hours: Intake & Output 09/24/23 09/25/23 09/26/23 09/27/23 23:59 23:59 23:59 23:59 Weight 223 lb 9 oz Constitutional Constitutional: no acute distress *Routine Respiratory Exam Respiratory: Present CTA bilaterally and symmetric chest movement *Routine Cardiovascular Exam Cardiovascular: Present RRR, Normal S1 and Normal S2 *Routine Abdominal Exam Abdominal: Present soft and normoactive bowel sounds; Absent tenderness *Routine Extremities Exam Extremities: Present full ROM and normal capillary refill; Absent edema *Routine Skin Exam Skin: Present intact, dry and warm Detailed Neck Exam: Thyroids Thyroid: Absent bruit Meds Home Medications and Allergies Home Medications Medication Instructions Recorded Confirmed Type atorvastatin 40 mg tablet 40 mg PO HS Cholesterol 03/30/19 09/27/23 History aspirin 81 mg tablet,delayed 81 mg PO DAILY heart health 09/21/19 09/27/23 History release (Adult Low Dose Aspirin) carvedilol 12.5 mg tablet 12.5 mg PO DAILY High Blood 09/21/19 09/27/23 History Pressure clopidogrel 75 mg tablet 75 mg PO DAILY Platelet Inhibitor 08/05/20 09/27/23 History amlodipine 10 mg tablet 10 mg PO DAILY High blood pressure 04/29/21 09/27/23 History lisinopril 20 mg tablet 20 mg PO DAILY High Blood Pressure 01/03/22 09/27/23 History hydrochlorothiazide 25 mg tablet 25 mg PO DAILY Fluid 12/10/22 09/27/23 History empagliflozin 10 mg tablet 10 mg PO DAILY Heart Failure 05/12/23 09/27/23 History (Jardiance) isosorbide mononitrate 30 mg 30 mg PO DAILY High Blood Pressure 09/27/23 09/27/23 History tablet,extended release 24 hr New Prescriptions to Start Prescriptions: Allergies Allergy/AdvReac Type Severity Reaction Status Date / Time Iodinated Contrast Media Allergy Mild Verified 09/27/23 13:37 ranolazine [From Ranexa] AdvReac Severe Verified 05/12/23 09:24 Assessment and Plan *Assessment and plan (1) CAD (coronary artery disease): Status: Chronic Qualifiers: Associated angina: without angina Coronary Disease-Associated Artery/Lesion type: [place] artery [place] vs. transplanted heart: [place] heart Qualified Code(s): I25.10 - Atherosclerotic heart disease of [place] coronary artery without angina pectoris Category: Medical Code(s): I25.10 - Atherosclerotic heart disease of [place] coronary artery without angina pectoris (2) HTN (hypertension): Status: Chronic Qualifiers: Hypertension type: primary hypertension Qualified Code(s): I10 - Essential (primary) hypertension Category: Medical Code(s): I10 - Essential (primary) hypertension (3) HLD (hyperlipidemia): Status: Chronic Qualifiers: Hyperlipidemia type: mixed hyperlipidemia Qualified Code(s): E78.2 - Mixed hyperlipidemia Category: Medical Code(s): E78.5 - Hyperlipidemia, unspecified (4) Syncope: Status: Acute Category: Medical Code(s): R55 - Syncope and collapse (5) Sinus bradycardia: Status: Acute Category: Medical Code(s): R00.1 - Bradycardia, unspecified (6) First degree AV block: Status: Acute Category: Medical Code(s): I44.0 - Atrioventricular block, first degree Plan Syncope Sinus bradycardia with a first-degree AV block -Hold all AV blockers -Telemetry monitoring -Echo pending Hyperlipidemia -LDL goal less than 55, LDL goal is 77. On statin Hypertension -well-controlled -Continue home lisinopril 20 mg daily History of coronary artery disease -Medical management 2022 -Continue high-dose statin, aspirin, Plavix CV summary 09/27/2023: Echocardiogram is pending. Hold all AV blockers.
[2023-09-27 16:52] LABS: Troponin I < 0.01 ng/ml (0.00-0.034)
--- NOTE | 2023-09-27 18:29 | PC.NURSE ---
A&OX4. PT HAS TOLERATED 2L NC WELL THROUGHOUT SHIFT. NO COUGH NOTED. PT STATES HE WEARS 2L NC USUALLY AT NIGHT AND NEEDED THROUGHOUT THE DAY. RESPIRATIONS REGULAR AND UNLABORED. LUNG SOUNDS CLEAR THROUGHOUT. ACTIVE BOWEL SOUNDS HEARD IN ALL 4 QUADRANTS. LAST BM REPORTED THIS AM BY PT AT HOME. VOIDS PER BATHROOM INDEPENDENTLY. 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 +2 PULSES NOTED THROUGHOUT. NO EDEMA NOTED. NO REPORTS OF CHEST PAIN, SOB, OR ANY PAIN THUS FAR. BED IN LOWEST POSITION. CALL LIGHT WITHIN REACH. VSS.
--- NOTE | 2023-09-27 19:09 | EXP.HP ---
History of Present Illness *Admission Date: 09/27/23 *Reason for visit:: syncope *History of present illness: Mr. De Jesus is a 73-year-old male with past medical history of CAD, [facility] 01/2023, sinus bradycardia with a first-degree AV block, and HLD who presented to the ER with complaints of syncope. Patient reports while shaving this morning having an episode of losing consciousness and waking up on the floor. Has had some weakness and general fatigue over the past few days but denies any cough, chest pain, nausea, vomiting. Denies losing control of bladder or bowel. Presented to the ER for further evaluation after calling his daughter and just saying help. Upon presentation, EKG showed sinus bradycardia. Labs with normal white count. Creatinine at baseline of 1. CT of head negative. Medicine was consulted for admission for monitoring on telemetry and further evaluation. After arriving to the floor, patient is at baseline level of mentation. Cardiology consulted to assist with care. Feels that he is back to his baseline at this time. [facility] Disclaimer: The information contained in this section may have been updated after the patient was seen, as this information can be updated by other users. Medical History Abnormal result of cardiovascular function study H/O Legionnaire's disease H/O testicular cancer History of left heart catheterization (LHC) History of stroke Typical angina Surgical History H/O heart artery stent History of cholecystectomy History of knee replacement Family History No significant family history Social History Smoking Status: Former smoker tobacco type: cigarettes second hand exposure: No alcohol intake: never substance use type: denies use current occupational status: retired and other Travel in the last 8 weeks: None household members: none housing: house current occupational exposures/hazards: No caffeine: Yes Review of Systems Review of Systems Review of systems (narrative): 14 point review of systems performed, pertinent positives and negatives as per HPI Meds Home Medications and Allergies Home Medications Medication Instructions Recorded Confirmed Type atorvastatin 40 mg tablet 40 mg PO HS Cholesterol 03/30/19 09/27/23 History aspirin 81 mg tablet,delayed 81 mg PO DAILY heart health 09/21/19 09/27/23 History release (Adult Low Dose Aspirin) carvedilol 12.5 mg tablet 12.5 mg PO DAILY High Blood 09/21/19 09/27/23 History Pressure clopidogrel 75 mg tablet 75 mg PO DAILY Platelet Inhibitor 08/05/20 09/27/23 History amlodipine 10 mg tablet 10 mg PO DAILY High blood pressure 04/29/21 09/27/23 History lisinopril 20 mg tablet 20 mg PO DAILY High Blood Pressure 01/03/22 09/27/23 History hydrochlorothiazide 25 mg tablet 25 mg PO DAILY Fluid 12/10/22 09/27/23 History empagliflozin 10 mg tablet 10 mg PO DAILY Heart Failure 05/12/23 09/27/23 History (Jardiance) isosorbide mononitrate 30 mg 30 mg PO DAILY High Blood Pressure 09/27/23 09/27/23 History tablet,extended release 24 hr New Prescriptions to Start Prescriptions: Allergies Allergy/AdvReac Type Severity Reaction Status Date / Time Iodinated Contrast Media Allergy Mild Verified 09/27/23 13:37 ranolazine [From Ranexa] AdvReac Severe Verified 05/12/23 09:24 Exam Data for Last 24 hours Vital signs and Labs for Last 24 Hours: Temp Pulse Resp BP Pulse Ox O2 Del Method O2 Flow Rate 97.8 F 50 L 18 122/57 L 96 Nasal Cannula 2 09/27/23 15:36 09/27/23 16:00 09/27/23 15:36 09/27/23 15:36 09/27/23 15:36 09/27/23 17:00 09/27/23 17:00 Laboratory Results - last 24 hr 09/27/23 09:45: WBC 6.7, RBC 5.16, Hgb 14.8, Hct 45.0, MCV 87.3, MCH 28.7, MCHC 32.9, RDW 14.8, Plt Count 223, MPV 7.9, Neut % (Auto) 74.2, Lymph % (Auto) 16.9, [place] % (Auto) 5.8, Eos % (Auto) 2.3, Baso % (Auto) 0.7, Neut # (Auto) 4.9, Lymph # (Auto) 1.1, [place] # (Auto) 0.4, Eos # (Auto) 0.2, Baso # (Auto) 0.1, PT 11.9, INR 1.11 H, APTT 25.7, Sodium 138, Potassium 4.1, Chloride 104, Carbon Dioxide 27, Anion Gap 11.1, BUN 17, Creatinine 1.00, Estimated Creat Clear 100, Estimated GFR 74, Est GFR ( Amer) 89, Glucose 148 H, Calcium 8.2 L, Magnesium 2.1, Total Bilirubin 0.6, AST 31, ALT 29, Alkaline Phosphatase 90, Troponin I < 0.01, NT-Pro-B Natriuret Pep 72.1, Total Protein 6.9, Albumin 3.8, Globulin 3.1, Albumin/Globulin Ratio 1.2, TSH 1.61 09/27/23 09:55: SARS-CoV-2 (PCR) Not detected, Influenza A Untype (PCR) Not detected, Influenza Type B (PCR) Not detected 09/27/23 12:56: Troponin I < 0.01 09/27/23 15:55: Troponin I < 0.01 I & O for Last 24 hours: Intake & Output 09/24/23 09/25/23 09/26/23 09/27/23 23:59 23:59 23:59 23:59 Intake Total 480 / 480 Output Total 0 / 0 Balance 480 / 480 Weight 101.406 kg Constitutional Constitutional: no acute distress, obese and chronically ill appearing *Routine HEENT Exam Head: Present normocephalic Eye: Present EOMI and PERRL ENT: Present mucous membranes moist *Routine Neck Exam Neck: Present supple; Absent lymphadenopathy *Routine Respiratory Exam Respiratory: Present CTA bilaterally; Absent wheezes or crackles *Routine Cardiovascular Exam Cardiovascular: Present bradycardia *Routine Abdominal Exam Abdominal: Present soft and normoactive bowel sounds; Absent tenderness *Routine Rectal Exam Rectal:: deferred *Routine Genitalia Exam Genitalia:: deferred *Routine Extremities Exam Extremities: Absent cyanosis, clubbing or edema *Routine Skin Exam Skin: Present warm; Absent rash *Routine Neurological Exam Neurological: Present alert, oriented X3, CN II-XII intact and moving all extremities; Absent altered mental status, facial asymmetry or normal speech Assessment and Plan *Assessment and plan (1) Syncope: Status: Acute Category: Medical Code(s): R55 - Syncope and collapse (2) Sinus bradycardia: Status: Acute Category: Medical Code(s): R00.1 - Bradycardia, unspecified (3) First degree AV block: Status: Acute Category: Medical Code(s): I44.0 - Atrioventricular block, first degree (4) CAD (coronary artery disease): Status: Chronic Qualifiers: Coronary Disease-Associated Artery/Lesion type: [place] artery [place] vs. transplanted heart: [place] heart Associated angina: without angina Qualified Code(s): I25.10 - Atherosclerotic heart disease of [place] coronary artery without angina pectoris Category: Medical Code(s): I25.10 - Atherosclerotic heart disease of [place] coronary artery without angina pectoris (5) HTN (hypertension): Status: Chronic Qualifiers: Hypertension type: primary hypertension Qualified Code(s): I10 - Essential (primary) hypertension Category: Medical Code(s): I10 - Essential (primary) hypertension (6) HLD (hyperlipidemia): Status: Chronic Qualifiers: Hyperlipidemia type: mixed hyperlipidemia Qualified Code(s): E78.2 - Mixed hyperlipidemia Category: Medical Code(s): E78.5 - Hyperlipidemia, unspecified Plan 73-year-old male with significant coronary artery disease and cardiovascular history. Had a syncopal event at home. Presented to the ER for further evaluation., Patient with no acute abnormalities. Discussed case with ER, request admission for further evaluation and monitoring given his sinus bradycardia with first-degree AV block. Medicine agreed to admit. Problems addressed as follows. Syncope Sinus bradycardia with a first-degree AV block - Cardiology consulted, appreciate their recs, Hold all AV blockers. Discontinued carvedilol - continuous telemetry - Echo pending Hyperlipidemia - Continue Lipitor 40 mg nightly. Hypertension CAD - well-controlled - Continue lisinopril 20 mg daily, amlodipine 10 mg daily. - continue Aspirin 81 mg daily, and Plavix 75MG DAILY, jardiance 10mg daily, isosorbide 30mg daily Full code Cardiac diet
--- NOTE | 2023-09-27 21:00 | PC.NURSE ---
Patient requested for 2LNC to be removed before bedtime due to causing discomfort and congestion. TRN offered to connect humidification for comfort. Patient decline and requested mask to be used since this is what he uses at home. After speaking with respiratory, TRN placed venti mask on patient at 3L 26%. Patient reports that this is more comfortable and prefers this oxygenations method. Patient denies pain at present, and appears comfortable without complaints. Call light within reach.
[2023-09-28] VITALS (9 sets, daily range): BP systolic 107–159; BP diastolic 57–78; PULSE 55–93; RESP 16–20; TEMP 36.4–37.1; O2SAT 90–97; BMI 31.9
[2023-09-28 07:10] LABS: Basophils % 0.4 % (0.1-2.0); Eosinophils # 0.2 K/mm3 (0.0-0.4); Eosinophils % 2.3 % (0.1-12.0); Hematocrit 44.3 % (42.0-52.0); Hemoglobin 14.7 g/dL (14.1-18.0); Lymphocytes # 1.2 K/mm3 (0.7-4.5); Lymphocytes % 18.7 % (10-50); Mean Corpuscular HGB Conc 33.2 g/dL (31.8-35.4); Mean Corpuscular Hemoglobin 28.5 pg (27.0-31.2); Mean Corpuscular Volume 85.7 fl (80-94); Mean Platelet Volume 7.8 fl (7.4-10.4); Monocytes # 0.5 K/mm3 (0.1-1.0); Monocytes % 7.5 % (1.7-9.3); Neutrophils # 4.7 K/mm3 (1.8-7.8); Neutrophils % 71.2 % (37.0-80.0); Platelet Count 203 K/mm3 (142-424); Red Blood Count 5.17 M/mm3 (4.60-6.20); Red Cell Distribution Width 14.9 % (11.5-17.5); White Blood Count 6.6 K/mm3 (4.8-10.8)
[2023-09-28 07:16] LABS: Alanine Aminotransferase 24 U/L (12-78); Albumin Level 4.1 g/dl (3.5-5.0); Albumin/Globulin Ratio 1.3 (1.1-1.8); Alkaline Phosphatase 88 U/L (38-126); Anion Gap 8.1 mEq/L (5-15); Aspartate Amino Transferase 31 U/L (17-59); Bilirubin,Total 0.7 mg/dl (0.2-1.3); Blood Urea Nitrogen 18 mg/dl (9-20); Calcium 8.3 mg/dl (8.4-10.2); Carbon Dioxide 28 mmol/L (22.0-30.0); Chloride 104 mmol/L (98-107); Creatinine Clearance Estimated 99 mL/min (50-200); Estimated Glomerular Filt Rate 74 ml/min (>60); GFR (African American) 89 ML/MIN (>60); Globulin 3.1 g/dL (1.3-3.2); Glucose 114 mg/dl (74-100); Magnesium 2.2 mg/dl (1.6-2.3); Potassium 4.1 mmoL/L (3.5-5.1); Sodium 136 mmol/L (136-145); Total Protein,Serum 7.2 g/dl (6.3-8.2)
[2023-09-28] MEDS: CLOPIDOGREL 75MG TAB 75 MG PO (08:02)
[2023-09-28] MEDS: ASPIRIN EC 81MG TABLET 81 MG PO (08:02)
[2023-09-28] MEDS: AMLODIPINE 10MG TABLET 10 MG PO (08:02)
[2023-09-28] MEDS: ISOSORBIDE MONO 30MG TAB.ER.24H 30 MG PO (08:02)
[2023-09-28] MEDS: EMPAGLIFLOZIN 10MG TABLET 10 MG PO (08:02)
[2023-09-28] MEDS: LISINOPRIL 20MG TABLET 20 MG PO (08:02)
--- NOTE | 2023-09-28 09:15 | ECG_ITS ---
APPROVED REPORT Exam: Resting ECG HR:58 bpm ECG Measurements Heart Rate 58 AXES NE 229 P 62 QRSd 121 QRS 88 QT 428 T 1 QTc 425 Conclusion SINUS BRADYCARDIA WITH FIRST DEGREE AV BLOCK MODERATE INTRAVENTRICULAR CONDUCTION DELAY [110+ ms QRS DURATION] MODERATE ST DEPRESSION [0.05+ mV ST DEPRESSION] ABNORMAL ECG UNCONFIRMED REPORT Electronically signed by : Tuan Fry MD 09/29/2023 08:38:51
--- NOTE | 2023-09-28 10:03 | P.PN_ITS ---
Subjective Subjective Date: 09/28/23 Time: 08:00 Principal diagnosis: Syncope Interval history: Patient reports feeling great this morning and back to baseline. Denies dizziness, chest pain, shortness of breath or any other episodes of syncope. Patient was ambulatory around the unit this morning without dizziness and did not become orthostatic. EKG remained sinus bradycardia with a first-degree AV block rate 58. Heart rate this morning is greater than 64 bpm. Exam Data for Last 24 hours Vital signs and Labs for Last 24 Hours: Temp Pulse Resp BP Pulse Ox O2 Del Method O2 Flow Rate 98.2 F 56 L 16 149/66 H 94 L Room Air 2 09/28/23 08:06 09/28/23 08:06 09/28/23 08:06 09/28/23 08:06 09/28/23 08:06 09/28/23 10:02 09/28/23 08:06 Laboratory Results - last 24 hr 09/27/23 09:45: WBC 6.7, RBC 5.16, Hgb 14.8, Hct 45.0, MCV 87.3, MCH 28.7, MCHC 32.9, RDW 14.8, Plt Count 223, MPV 7.9, Neut % (Auto) 74.2, Lymph % (Auto) 16.9, [place] % (Auto) 5.8, Eos % (Auto) 2.3, Baso % (Auto) 0.7, Neut # (Auto) 4.9, Lymph # (Auto) 1.1, [place] # (Auto) 0.4, Eos # (Auto) 0.2, Baso # (Auto) 0.1, PT 11.9, INR 1.11 H, APTT 25.7, Sodium 138, Potassium 4.1, Chloride 104, Carbon Dioxide 27, Anion Gap 11.1, BUN 17, Creatinine 1.00, Estimated Creat Clear 100, Estimated GFR 74, Est GFR ( Amer) 89, Glucose 148 H, Calcium 8.2 L, Magnesium 2.1, Total Bilirubin 0.6, AST 31, ALT 29, Alkaline Phosphatase 90, Tr oponin I < 0.01, NT-Pro-B Natriuret Pep 72.1, Total Protein 6.9, Albumin 3.8, Globulin 3.1, Albumin/Globulin Ratio 1.2, TSH 1.61 09/27/23 09:55: SARS-CoV-2 (PCR) Not detected, Influenza A Untype (PCR) Not detected, Influenza Type B (PCR) Not detected 09/27/23 12:56: Troponin I < 0.01 09/27/23 15:55: Troponin I < 0.01 09/28/23 06:35: WBC 6.6, RBC 5.17, Hgb 14.7, Hct 44.3, MCV 85.7, MCH 28.5, MCHC 33.2, RDW 14.9, Plt Count 203, MPV 7.8, Neut % (Auto) 71.2, Lymph % (Auto) 18.7, [place] % (Auto) 7.5, Eos % (Auto) 2.3, Baso % (Auto) 0.4, Neut # (Auto) 4.7, Lymph # (Auto) 1.2, [place] # (Auto) 0.5, Eos # (Auto) 0.2, Baso # (Auto) 0.0, Sodium 136, Potassium 4.1, Chloride 104, Carbon Dioxide 28, Anion Gap 8.1, BUN 18, Creatinine 1.00, Estimated Creat Clear 99, Estimated GFR 74, Est GFR ( Amer) 89, Glucose 114 H D, Calcium 8.3 L, Magnesium 2.2, Total Bilirubin 0.7, AST 31, ALT 24, Alkaline Phosphatase 88, Total Protein 7.2, Albumin 4.1, Globulin 3.1, Albumin/Globulin Ratio 1.3 I & O for Last 24 hours: Intake & Output 09/25/23 09/26/23 09/27/23 09/28/23 23:59 23:59 23:59 23:59 Intake Total 480 / 1080 1080 / 1080 Output Total 0 / 0 0 / 0 Balance 480 / 1080 1080 / 1080 Weight 223 lb 9 oz 228 lb 1.6 oz Constitutional Constitutional: no acute distress *Routine Respiratory Exam Respiratory: Present CTA bilaterally and symmetric chest movement *Routine Cardiovascular Exam Cardiovascular: Present RRR, Normal S1 and Normal S2 *Routine Abdominal Exam Abdominal: Present soft and normoactive bowel sounds; Absent tenderness *Routine Extremities Exam Extremities: Present full ROM and normal capillary refill; Absent edema *Routine Skin Exam Skin: Present intact, dry and warm Detailed Neck Exam: Thyroids Thyroid: Absent bruit Progress Note: A&P Assessment and plan (1) Syncope: Status: Acute (2) Sinus bradycardia: Status: Acute (3) First degree AV block: Status: Acute (4) CAD (coronary artery disease): Status: Chronic (5) HTN (hypertension): Status: Chronic (6) HLD (hyperlipidemia): Status: Chronic Assessment and Plan Assessment and Plan for All Diagnoses:: Syncope Sinus bradycardia with a first-degree AV block -Hold all AV blockers -Telemetry monitoring -Prelim report shows EF of 65-70, no significant valve issues, the RV is moderately dilated with mild RV dysfucntion. 09/28/2023: Denies any more episodes of syncope or dizziness. Patient reports feeling great and would like to go home. Will Obtain CTA chest to r/o PE prior to dc home given dilated RV and syncope. Recommend patient be discharged home with a 2-week event monitor for further evaluation. Hyperlipidemia -LDL goal less than 55, LDL goal is 77. On statin Hypertension -well-controlled -Continue home lisinopril 20 mg daily History of coronary artery disease -Medical management 2022 -Continue high-dose statin, aspirin, Plavix 09/28/2023:CTA chest to r/o PE prior to dc home. Anticipate discharge home today with a 2-week event monitor for further evaluation. Continue to hold all AV blockers.
--- NOTE | 2023-09-28 12:39 | CT_ITS ---
FINAL REPORT CLINICAL HISTORY: soa, RV dilated, recent syncope COMPARISON: 12/14/2021 FINDINGS: Thin section axial CT images of the chest were obtained with contrast. 3D reformatted images were also obtained. This study was performed with techniques to keep radiation doses as low as reasonably achievable (ALARA). Individualized dose reduction techniques using automated exposure control or adjustment of mA and/or kV according to the patient''s size were employed. There is no evidence of pulmonary embolism. There is no evidence of thoracic aortic aneurysm or dissection. There is no evidence of mediastinal or hilar mass or adenopathy. There is no evidence of pulmonary mass or nodule. There is mild atelectasis or scarring. Limited images of the upper abdomen demonstrate cholecystectomy. IMPRESSION: No evidence of pulmonary embolism. Mild atelectasis or scarring. Reviewed, Interpreted and Dictated by Kemal Rodriguez III, MD Transcribed by Hilary Aceveod Authenticated and [facility]
[2023-09-28] MEDS: METHYLPREDNISOLONE SOD SUCC 125MG VIAL 80 MG IV (13:44)
[2023-09-28] MEDS: diphenhydrAMINE 50MG CAPSULE 50 MG PO (13:44)
--- NOTE | 2023-09-28 14:17 | PC.NURSE ---
Pt's 02 without oxygen in the low 90's, aox 4, up with assist times one, wears 02 2L nc at home at HS, 18g L ac sl.
[2023-09-28] MEDS: 0.9 % SODIUM CHLORIDE 50 ML VIAL IV (14:59)
[2023-09-28] MEDS: IOPAMIDOL-370 (76%);100ML BOTTLE 70 ML IV (15:00)
--- NOTE | 2023-09-28 17:02 | EXP.DC.SUM ---
General Admission date:: 09/27/23 Discharge date: 09/28/23 HPI HPI HPI: Mr. De Jesus is a 73-year-old male with past medical history of CAD, [facility] 01/2023, sinus bradycardia with a first-degree AV block, and HLD who presented to the ER with complaints of syncope. Patient reports while shaving this morning having an episode of losing consciousness and waking up on the floor. Has had some weakness and general fatigue over the past few days but denies any cough, chest pain, nausea, vomiting. Denies losing control of bladder or bowel. Presented to the ER for further evaluation after calling his daughter and just saying help. Upon presentation, EKG showed sinus bradycardia. Labs with normal white count. Creatinine at baseline of 1. CT of head negative. Medicine was consulted for admission for monitoring on telemetry and further evaluation. After arriving to the floor, patient is at baseline level of mentation. Cardiology consulted to assist with care. Feels that he is back to his baseline at this time. Hospital Course Hospital Course Hospital Course: Patient was seen and evaluated at the bedside on the day of discharge. Patient is stable for discharge. Patient wishes to be discharged. All patient questions were answered and patient was given time to ask questions. Patient was discharged in stable condition. Patient understands that she can return to ER in case of any sudden changes in health. Total time spent on DC - 38 mins 73-year-old male with significant coronary artery disease and cardiovascular history. Had a syncopal event at home. Presented to the ER for further evaluation., Patient with no acute abnormalities. Discussed case with ER, request admission for further evaluation and monitoring given his sinus bradycardia with first-degree AV block. Medicine agreed to admit. Problems addressed as follows. Syncope Sinus bradycardia with a first-degree AV block - Cardiology consulted, appreciate their recs, Hold all AV blockers. Discontinued carvedilol - continuous telemetry -ok to dc per cardiology - Hyperlipidemia - Continue Lipitor 40 mg nightly. Hypertension CAD - well-controlled - Continue lisinopril 20 mg daily, amlodipine 10 mg daily. - continue Aspirin 81 mg daily, and Plavix 75MG DAILY, jardiance 10mg daily, isosorbide 30mg daily Full code Cardiac diet stable for dc per cardiology Exam Data for Last 24 hours Vital signs and Labs for Last 24 Hours: Temp Pulse Resp BP Pulse Ox O2 Del Method O2 Flow Rate 97.6 F 70 18 129/64 92 L Room Air 2 09/28/23 15:37 09/28/23 16:00 09/28/23 15:37 09/28/23 15:37 09/28/23 15:37 09/28/23 16:08 09/28/23 08:06 Laboratory Results - last 24 hr 09/28/23 06:35: WBC 6.6, RBC 5.17, Hgb 14.7, Hct 44.3, MCV 85.7, MCH 28.5, MCHC 33.2, RDW 14.9, Plt Count 203, MPV 7.8, Neut % (Auto) 71.2, Lymph % (Auto) 18.7, [place] % (Auto) 7.5, Eos % (Auto) 2.3, Baso % (Auto) 0.4, Neut # (Auto) 4.7, Lymph # (Auto) 1.2, [place] # (Auto) 0.5, Eos # (Auto) 0.2, Baso # (Auto) 0.0, Sodium 136, Potassium 4.1, Chloride 104, Carbon Dioxide 28, Anion Gap 8.1, BUN 18, Creatinine 1.00, Estimated Creat Clear 99, Estimated GFR 74, Est GFR ( Amer) 89, Glucose 114 H D, Calcium 8.3 L, Magnesium 2.2, Total Bilirubin 0.7, AST 31, ALT 24, Alkaline Phosphatase 88, Total Protein 7.2, Albumin 4.1, Globulin 3.1, Albumin/Globulin Ratio 1.3 I & O for Last 24 hours: Intake & Output 09/25/23 09/26/23 09/27/23 09/28/23 23:59 23:59 23:59 23:59 Intake Total 480 / 1080 1790 / 1790 Output Total 0 / 0 0 / 0 Balance 480 / 1080 1790 / 1790 Weight 101.406 kg 103.464 kg Constitutional Constitutional: no acute distress *Routine HEENT Exam Head: Present normocephalic Eye: Present EOMI and PERRL ENT: Present mucous membranes moist *Routine Neck Exam Neck: Present supple; Absent lymphadenopathy *Routine Respiratory Exam Respiratory: Present CTA bilaterally *Routine Cardiovascular Exam Cardiovascular: Present RRR *Routine Abdominal Exam Abdominal: Present soft and normoactive bowel sounds; Absent tenderness *Routine Extremities Exam Extremities: Absent cyanosis, clubbing or edema *Routine Skin Exam Skin: Present warm; Absent rash *Routine Neurological Exam Neurological: Present alert and oriented X3 Results Data Completed and Pending Labs on day of discharge: Labs from last 24 hours 09/28/23 06:35 WBC 6.6 RBC 5.17 Hgb 14.7 Hct 44.3 MCV 85.7 MCH 28.5 MCHC 33.2 RDW 14.9 Plt Count 203 MPV 7.8 Neut % (Auto) 71.2 Lymph % (Auto) 18.7 [place] % (Auto) 7.5 Eos % (Auto) 2.3 Baso % (Auto) 0.4 Neut # (Auto) 4.7 Lymph # (Auto) 1.2 [place] # (Auto) 0.5 Eos # (Auto) 0.2 Baso # (Auto) 0.0 Sodium 136 Potassium 4.1 Chloride 104 Carbon Dioxide 28 Anion Gap 8.1 BUN 18 Creatinine 1.00 Estimated Creat Clear 99 Estimated GFR 74 Est GFR ( Amer) 89 Glucose 114 H D Calcium 8.3 L Magnesium 2.2 Total Bilirubin 0.7 AST 31 ALT 24 Alkaline Phosphatase 88 Total Protein 7.2 Albumin 4.1 Globulin 3.1 Albumin/Globulin Ratio 1.3 DS: Diagnosis Discharge Diagnosis (1) Syncope: Status: Acute Code(s): R55 - Syncope and collapse (2) Sinus bradycardia: Status: Acute Code(s): R00.1 - Bradycardia, unspecified (3) First degree AV block: Status: Acute Code(s): I44.0 - Atrioventricular block, first degree (4) CAD (coronary artery disease): Status: Chronic Code(s): I25.10 - Atherosclerotic heart disease of [place] coronary artery without angina pectoris Qualifiers: Associated angina: without angina Coronary Disease-Associated Artery/Lesion type: [place] artery [place] vs. transplanted heart: [place] heart Qualified Code(s): I25.10 - Atherosclerotic heart disease of [place] coronary artery without angina pectoris (5) HTN (hypertension): Status: Chronic Code(s): I10 - Essential (primary) hypertension Qualifiers: Hypertension type: primary hypertension Qualified Code(s): I10 - Essential (primary) hypertension (6) HLD (hyperlipidemia): Status: Chronic Code(s): E78.5 - Hyperlipidemia, unspecified Qualifiers: Hyperlipidemia type: mixed hyperlipidemia Qualified Code(s): E78.2 - Mixed hyperlipidemia Meds Home Medications and Allergies Home Medications Medication Instructions Recorded Confirmed Type atorvastatin 40 mg tablet 40 mg PO HS Cholesterol 03/30/19 09/27/23 History aspirin 81 mg tablet,delayed 81 mg PO DAILY heart health 09/21/19 09/27/23 History release (Adult Low Dose Aspirin) clopidogrel 75 mg tablet 75 mg PO DAILY Platelet Inhibitor 08/05/20 09/27/23 History amlodipine 10 mg tablet 10 mg PO DAILY High blood pressure 04/29/21 09/27/23 History lisinopril 20 mg tablet 20 mg PO DAILY High Blood Pressure 01/03/22 09/27/23 History hydrochlorothiazide 25 mg tablet 25 mg PO DAILY Fluid 12/10/22 09/27/23 History empagliflozin 10 mg tablet 10 mg PO DAILY Heart Failure 05/12/23 09/27/23 History (Jardiance) isosorbide mononitrate 30 mg 30 mg PO DAILY High Blood Pressure 09/27/23 09/27/23 History tablet,extended release 24 hr New Prescriptions to Start Prescriptions: Allergies Allergy/AdvReac Type Severity Reaction Status Date / Time Iodinated Contrast Media Allergy Mild Verified 09/27/23 13:37 ranolazine [From Ranexa] AdvReac Severe Verified 05/12/23 09:24 Discharge Plan Disposition Patient Disposition: Home, Self-Care Condition: Good Follow up Plan Follow up with: Cesar Choi MD [Staff Physician] - 2 weeks Prescriptions/Medication Reconciliation: Continued aspirin [Adult Low Dose Aspirin] 81 mg tablet,delayed release (DR/EC) 81 mg PO DAILY Hold Instructions: Resume on 01/20/22. atorvastatin 40 mg tablet 40 mg PO HS hydrochlorothiazide 25 mg tablet 25 mg PO DAILY Jardiance 10 mg tablet 10 mg PO DAILY amlodipine 10 MG tablet 10 mg PO DAILY lisinopril 20 MG tablet 20 mg PO DAILY isosorbide mononitrate 30 mg tablet extended release 24 hr 30 mg PO DAILY clopidogrel 75 MG tablet 75 mg PO DAILY Hold Instructions: Resume on 01/20/22. Discontinued carvedilol 12.5 mg tablet 12.5 mg PO DAILY Problem Reconciliation Problems Reviewed?: Yes Patient Discharge Instructions ACTIVITY: Ambulate as tolerated DIET: advance to your usual diet Patient Instructions: Fainting Providers Primary Care Provider: Provider,Referral Admit Provider: Brian Robledo Attending Provider: Brian Robledo
--- NOTE | 2023-09-29 12:40 | SW/DCPLANNER ---
Follow up phone call w/ this patient: patient stated that he is doing well at home and does not have any questions/needs at this time.
== END 2023-09-28 17:50 | disposition home or self-care (01) ==
LOC: ER 11:40 → 2ND 11:50
PROVIDERS: Admitting Provider Internal Medicine Adolescent Medicine; Emergency Provider Student in an Organized Health Care Education/Training Program; Visit Provider Internal Medicine Adolescent Medicine
DX: R55 Syncope and collapse (principal); R00.1 Bradycardia, unspecified; I44.0 Atrioventricular block, first degree; I25.10 Atherosclerotic heart disease of native coronary artery without angina pectoris; I10 Essential (primary) hypertension; E78.2 Mixed hyperlipidemia; R41.3 Other amnesia; R53.1 Weakness; Z85.47 Personal history of malignant neoplasm of testis; Z86.73 Personal history of transient ischemic attack (TIA), and cerebral infarction without residual deficits; Z95.5 Presence of coronary angioplasty implant and graft; I25.2 Old myocardial infarction; Z87.891 Personal history of nicotine dependence
CPT/HCPCS: 36415; 70450; 71045; 71275; 80053; 83735; 83880; 84443; 84484; 85025; 85610; 85730; 87636; 93005; 93270; 93306; 99285; G0378; Q9967